=== PATIENT | male | born 1960 | race Caucasian/White ===

== ENCOUNTER 2016-03-04 09:47 | Inpatient (IN) | payer BC, OTHER ==
[~2016-03-04] VITALS: Ht 152.4 cm; Wt 10.0 kg
[~2016-03-04 09:47] MED LIST: ATEN-173 PO; HYDC25 PO; LANS30CA12 PO; OXYC-57 PO
[2016-03-04 10:01] VITALS: Ht 152.4 cm; Wt 10.0 kg
[2016-03-04] MEDS ORDERED: ASPIRIN 81 MG CHEW PO STA (10:04)
[2016-03-04] MEDS ORDERED: NITROGLYCERIN 0.4 MG SL PER TAB CHARGE SL PRN (10:15)
[2016-03-04 10:26] LABS: BASO % 0.4 %; BASO ABS # 0.03 K/uL (0-0.2); COMPLETE YES; HEMATOCRIT 46.3 % (42-52); IG% 0.2 %; LYMPH % 15.8 %; LYMPH ABS # 1.31 K/uL (1.2-3.4); MEAN CORPUSCULAR HEMOGLOBIN 31.4 pg (25-34); MEAN CORPUSCULAR HGB CONC 34.6 g/dl (32-36); MEAN PLATELET VOLUME 10.2 fL (7.4-10.4); MONO % 5.9 %; NEUT % 74.7 %; PLATELET COUNT 238 K/uL (130-400); RED BLOOD COUNT 5.09 M/uL (4.7-6.1); WHITE BLOOD COUNT 8.31 K/uL (4.8-10.8)
--- NOTE | 2016-03-04 10:33 | DIAGNOSTIC IMAGING REPORT ---
SINGLE VIEW CHEST CLINICAL HISTORY: Atypical chest pain. FINDINGS: An AP, portable, upright chest radiograph is obtained. No prior studies are available for comparison at the time of dictation. The examination is degraded by portable technique and patient rotation. The cardiomediastinal silhouette is top normal for projection. There are low lung volumes with mild bibasilar atelectasis. No airspace consolidation, large pleural effusion, or pneumothorax is seen. The bony thorax is grossly intact. IMPRESSION: Bibasilar atelectasis with no acute cardiopulmonary abnormality. Electronically signed by: Brendan Blair M.D. 03/04/2016 10:31 AM Dictated Date/Time: 03/04/2016 10:30 AM
[2016-03-04 10:46] LABS: BUN/CREATININE RATIO 17.8 (10-20); CALCIUM 9.1 mg/dl (8.5-10.1); CREATININE 0.89 mg/dl (0.60-1.40); POTASSIUM 4.1 mmol/L (3.5-5.1)
[2016-03-04 10:51] LABS: CKMB/CK RATIO 0.7 (0-3.0)
--- NOTE | 2016-03-04 12:14 | DIAGNOSTIC IMAGING REPORT ---
CT ANGIOGRAM OF THE CHEST CLINICAL HISTORY: Atypical chest pain. COMPARISON STUDY: Chest x-ray dated 03/04/2016. TECHNIQUE: Following the IV administration of 91 cc of Optiray 320, CT angiogram of the chest was performed from the upper abdomen to the thoracic inlet utilizing the pulmonary embolus protocol. Images are reviewed in the axial, sagittal, and coronal planes. 3-D MIPS images are created and assessed. IV contrast was administered without complication. CT DOSE: 458.62 mGy.cm FINDINGS: Thyroid: Imaged portions of the thyroid gland are normal in size and attenuation. Thoracic aorta: There is minimal ectasia of the ascending thoracic aorta which measures up to 4.1 cm in diameter. The remainder of the thoracic aorta is normal in caliber. The arch demonstrates standard 3-vessel anatomy. The thoracic aorta was not well opacified. Pulmonary vasculature: The pulmonary trunk is normal in caliber. There are no filling defects identified in main, lobar, or segmental pulmonary branches to suggest pulmonary embolus. Heart: The heart is mildly enlarged and without pericardial effusion. Lungs and pleural spaces: Evaluation of the lung parenchyma is mildly degraded by respiratory motion artifact. There is no airspace consolidation or pleural effusion. Dependent atelectasis is observed. There are scattered calcified granulomas. A 3 mm left lower lobe nodule is seen on image #175. The trachea and central airways are clear. Mediastinum: There is no mediastinal lymphadenopathy. Mary Ann: Clear. Axillae: There is no axillary lymphadenopathy. Upper abdomen: A 13 mm cyst is seen in the left lobe of the liver. There is a small hiatal hernia. Skeletal structures: No lytic or blastic bony lesions are seen. IMPRESSION: 1. There is no evidence of pulmonary embolus in the main, lobar, or segmental pulmonary arteries. 2. There is no airspace consolidation or pleural effusion. 3. Cardiomegaly. 4. There is mild ectasia of the ascending thoracic aorta which measures up to 4.1 cm in diameter. The remainder of the thoracic aorta is normal in caliber. 5. There is a 3 mm left lower lobe pulmonary nodule. This is indeterminant but low suspicion and can be followed if clinically warranted. Please refer to below summary of Fleischner criteria recommendations for follow-up of incidental CT nodules (Gisell Akins, Guidelines for management of small pulmonary nodules detected on CT scans: A statement from the Fleischner Society, Radiology 237: [phone].) Low Risk Patient: Minimal or no smoking or other known risk factors for malignancy <=4 mm: No follow-up needed. >4-6 mm: Initial follow-up CT at 12 months; if unchanged, no further follow-up. >6-8 mm: Initial follow-up CT at 6-12 months then at 18-24 months if no change. >8 mm: Follow-up CT at \R\3, 9, 24 months, or PET and/or biopsy. High Risk Patient: History of smoking or other known risk factors <=4 mm: Follow-up at 12 months; if unchanged, no further follow-up. >4-6 mm: Initial follow-up CT at 6-12 months then at 18-24 months if no change. >6-8 mm: Initial follow-up CT at 3-6 months then at 9-12 and 24 months if no change. >8 mm: Same as low risk patient. Note: Nodule size measured as average of length and width. Ground glass or partly solid nodules may require longer follow-up to exclude indolent adenocarcinoma. Electronically signed by: Brendan Blair M.D. 03/04/2016 12:12 PM Dictated Date/Time: 03/04/2016 12:02 PM
--- NOTE | 2016-03-04 13:09 | EMERGENCY ROOM VISIT NOTE ---
ED Visit Note First contact with patient: 09:56 I saw this patient in conjunction with Harvinder Ford PA-C. I agree with his decision-making and treatment plan.
--- NOTE | 2016-03-04 15:55 | Cardiology Consultation ---
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 The patient's PCP is Dr Ahsan Levy. The patient states he was getting ready for work this am. He got out of the shower and had a stabbing discomfort at the lower rib margin of his left chest. He rested and it subsided. He then went to visit a client and had recurrence of the chest discomfort. Then he drove to [place] and had recurrence causing him to present to the ED. EKG x 2 in the emergency department revealed Sinus bradycardia at 52 and 47 bpm without an significant ST changes. His chest discomfort resolved after a dose of SL nitroglycerin. Two troponin levels were negative 3 hours apart. I was contacted by Mr Ford who requested an exercise stress echocardiogram on the patient. The patient's resting echocardiogram revealed normal wall motion. He was free of symptoms at that point. At 3 pm he was placed on the treadmill. At a low level of exercise he complained of reproduction of his presenting symptoms. His symptoms progressed with continued exercise and therefore the test was terminated. The EKG and echocardiogram revealed no definite evidence of ischemia, but the sensitivity is decreased given the low heart rate response and low work load completing 5 minutes and 18 seconds on a standard Emiliano protocol with peak HR of 100 bpm, equivalent to < 70% of the age predicted maximum HR. After the stress images were obtained the patient received a dose of 0.4 mcg of SL nitroglycerin administered by the undersigned with resolution of his symptoms. The patient was transported back to the ED under my personal supervision for ongoing care. History Past Medical History: 1. HTN 2. Dyslipidemia 3. 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 No heart disease. Siblings: no heart disease Review Of Systems General: The patient denies weight change, night sweats, fever, chills. Head: The patient denies headache and prior head trauma. Cardiovascular: The patient denies chest pain or chest discomfort, dyspnea on exertion, palpitations, PND, orthopnea, edema, spontaneous shortness of breath, syncope and near syncope. Pulmonary: The patient denies cough, wheeze, pleurisy, hemoptysis, sputum, and excessive snoring. Gastrointestinal: The patient denies nausea, vomiting, diarrhea, constipation, bloating, hematemesis, hematochezia, and abdominal pain. Skin: The patient denies diaphoresis and rash. Musculoskeletal: The patient denies joint pain, joint swelling, myalgia, back pain, neck pain and prior injuries. Neurological: The patient denies prior stroke and seizures Allergies Coded Allergies: No Known Allergies (Unverified , 03/04/16) Medications Reported Home Medications Medications Dose Route/Sig Max Daily Dose Days Date Category Hctz * (Hydrochlorothiazide) 12.5 Mg Cap 12.5 Mg PO QD@08 04/03/07 Rx Prevacid (Lansoprazole) 30 Mg Capcr 30 Mg PO DAILY 04/03/07 Reported Tenormin (Atenolol) 25 Mg Tab 50 Mg PO DAILY 04/03/07 Reported Physical Exam Vital Signs (Last 8hrs): Last 8 Hrs Date Time Temp Pulse Resp B/P Pulse Ox O2 Delivery O2 Flow Rate FiO2 03/04/16 15:29 53 18 142/95 53 Room Air 03/04/16 15:07 63 15 111/67 100 03/04/16 13:30 61 14 107/62 99 Room Air 03/04/16 13:12 46 03/04/16 11:26 47 16 141/87 98 Room Air 03/04/16 10:45 48 18 154/88 97 Room Air 03/04/16 10:24 59 16 141/93 96 Room Air 03/04/16 10:15 98 Room Air 03/04/16 10:05 51 03/04/16 10:01 36.7 51 18 165/115 99 Room Air 03/04/16 10:01 99 Room Air General Appearance: Alert and Oriented x3. NAD. Head: Normocephalic Atraumatic. Eyes: PERRLA, EOMI, conjunctiva and sclera clear Neck: Supple. No carotid bruits noted. No JVD. No HJD. Respiratory: Breath sounds clear to auscultation bilaterally. No w/r/r. Cardiovascular: Reg rate and rhythm. S1 and S2 noted. No murmurs, rubs, gallops. PMI non displace. Abdomen: Normal bowel sounds, soft nontender. no abdominal bruits. Extremities: No edema, no clubbing or cyanosis. distal pulses 2/4 bilaterally. Neuro: No focal deficits. Psychiatric: Normal affect. Data Last Resulted 03/04/16 10:10 Red Blood Count 5.09, Mean Corpuscular Volume 91.0, Mean Corpuscular Hemoglobin 31.4, Mean Corpuscular Hemoglobin Concent 34.6, Mean Platelet Volume 10.2, Neutrophils (%) (Auto) 74.7, Lymphocytes (%) (Auto) 15.8, Monocytes (%) (Auto) 5.9, Eosinophils (%) (Auto) 3.0, Basophils (%) (Auto) 0.4, Neutrophils # (Auto) 6.21, Lymphocytes # (Auto) 1.31, Monocytes # (Auto) 0.49, Eosinophils # (Auto) 0.25, Basophils # (Auto) 0.03 Last Resulted 03/04/16 10:10 Past 24 Hours Test 03/04/16 10:10 Range/Units Creatine Kinase MB 0.8 0.5-3.6 ng/ml Creatine Kinase MB Ratio 0.7 0-3.0 Total Creatine Kinase 108 39-308 U/L POC troponin negative x [address] of chest 03/04/15: 1. There is no evidence of pulmonary embolus in the main, lobar, or segmental pulmonary arteries. 2. There is no airspace consolidation or pleural effusion. 3. Cardiomegaly. 4. There is mild ectasia of the ascending thoracic aorta which measures up to 4.1 cm in diameter. The remainder of the thoracic aorta is normal in caliber. 5. There is a 3 mm left lower lobe pulmonary nodule. This is indeterminant but low suspicion and can be followed if clinically warranted. EKG: as per HPI Telemetry reviewed: Sinus bradycardia Assessment & Plan Impression: 55 year old male 1. Chest discomfort, reproduced on treadmill and suggestive of unstable angina, non ST segment elevation acute coronary syndrome 2. HTN, BP elevated with exercise 3. Sinus bradycardia at rest, on atenolol 50 mg on a chronic basis, heart rate response to exercise is attenuated due to the atenolol 4. Dyslipidemia, last LDL01/22/16 as outpt was 182, not on statin therapy ( myalgias with atorvastatin) 5. CT chest , negative for PE, positive for indeterminate incidental pulmonary nodule , and mild aortic root dilatation Plan: Admit to telemetry, s/o [facility] hospitalist with [facility] cardiology consultation. Start UF heparin infusion , weight based protocol, no loading bolus. ASA 81 mg daily. Start Crestor 10 mg daily. Continue home dose of atenolol for now, although dose may need to be cut back to 25 mg due to bradycardia. Likely for cardiac catheterization on Monday. Dr Bloom to see patient 03/05/16. Justus Baron DO
[2016-03-04] MEDS ORDERED: HEPARIN 25000 UNIT/500 ML D5W ONE (15:57)
[2016-03-04] MEDS ORDERED: ONDANSETRON INJ 2 MG/ML 2 ML VIAL IV PRN (16:00)
[2016-03-04] MEDS ORDERED: ASPEC81 PO (16:00)
--- NOTE | 2016-03-04 16:15 | EXERCISE STRESS ECHO ---
*NOTICE TO RECEIVING REPUBLICAN AGENCY This information is strictly Confidential and protected under [place] law. [place] law prohibits you from making any further disclosure of this information unless further disclosure is expressly permitted by the written consent of the person to whom it pertains or is authorized by law. A general authorization for the release of medical or other information is not sufficient for this purpose. Hospital accepts no responsibility if the information is made available to any other person, INCLUDING THE PATIENT. Interpretation Summary * Name: ANIL ESTEBAN Study Date: 03/04/2016 01:32 PM BP: 155/94 mmHg * Patient Location: ED HR: 46 * : 1960 (M/d/yyyy) Gender: Male Height: 70 in * Age: 55 yrs Ethnicity: [place] Weight: 199 lb * Ordering Physician: Arcadoi Ford * Referring Physician: Self, Referred * Performed By: Noam Kendall RCS * * Reason For Study: CHEST PAIN * BSA: 2.1 m2 * -- Conclusions -- * STRESS STUDY: * The patient's presenting symptoms of left sided chest discomfort were reproduced at a low level of exercise and progressed / worsened with continue exercise and therefore the exercise test was terminated. * There was no EKG or echocardgraphic evidence of resting or inducible ischemia, however the test was limited by the low heart rate respone/ low work load. * The heart rate response was attenuated by chronic beta do therapy. * Despite normal wall motion, the clinical presentation suggests underlying coronary heart disease. * RESTING STUDY; * There is mild mitral regurgitation. * The aortic root diameter was at the upper limit of normal at 3.8 cm. * The proximal ascending thoracic aorta was not visualized adequately to permit measurement. Procedure Details * ECHOEX, CPT #[id number] * ECHO COLOR FLOW, CPT #[id number] * ECHO DOPPLER, CPT #[id number] Left Ventricle * The left ventricle is normal in size. * There is normal left ventricular wall thickness. * Left ventricular systolic function is normal. * Ejection Fraction = 60-65%. * Resting wall motion: Normal. Stress wall motion: Appropriate increase in Left ventricular systolic function and decrease in cavity size. No stress induced segmental wall motion abnormalities. Right Ventricle * The right ventricle is normal in size and function. Atria * The left atrial size is normal. * Right atrial size is normal. * No ASD detected; PFO is not assessed. Mitral Valve * The mitral valve is normal. * There is no mitral valve stenosis. * There is mild mitral regurgitation. Tricuspid Valve * The tricuspid valve is normal. * There is no tricuspid stenosis. * Significant tricuspid regurgitation is absent. Aortic Valve * The aortic valve is trileaflet. * No hemodynamically significant valvular aortic stenosis. * No aortic regurgitation is present. Pulmonic Valve * The pulmonic valve is not well visualized. Great Vessels * The aortic root diameter was at the upper limit of normal at 3.8 cm. The proximal ascending thoracic aorta was not visualized adequately to permit measurement. Pericardium * There is no pericardial effusion. Stress Parameters * The baseline EKG reveals sinus bradycardia at [address] segments. * The stress EKG was negative for ischemia. The heart rate response was attenuated due to underlying beta do therapy. * The stress portion of this study was personally supervised by the undersigned interpreting physician. * Rest heart rate was '46' BPM. * Rest blood pressure was '155/94' * Maximum heart rate achieved was 120 bpm. * Maximum heart rate was 73 % of maximum age-predicted heart rate. * Maximum blood pressure was '193/102' * Total exercise time was '5:18' * Maximum exercise MET level achieved was '7' METS * Maximum treadmill speed was '2.5' miles per hour. * Maximum treadmill elevation was '12'% grade. * Exercise was terminated due to 'PHYSCIANS DESCRETION' Left Ventricular Diastolic Function * Grade I diastolic dysfunction, (abnormal relaxation pattern). MMode 2D Measurements and Calculations IVSd 1.0 cm IVSs 1.3 cm LVIDd 5.4 cm LVIDs 3.5 cm LVPWd 1.0 cm LVPWs 1.4 cm IVS/LVPW 1.0 FS 34.7 % EDV(Teich) 139.9 ml ESV(Teich) 51.3 ml EF(Teich) 63.3 % EDV(cubed) 155.5 ml ESV(cubed) 43.4 ml EF(cubed) 72.1 % % IVS thick 28.7 % % LVPW thick 40.2 % LV mass(C)d 213.8 grams LV mass(C)dI 102.7 grams/m\S\2 LV mass(C)s 171.1 grams LV mass(C)sI 82.1 grams/m\S\2 CO(Teich) 5.0 l/min CI(Teich) 2.4 l/min/m\S\2 SV(Teich) 88.6 ml SI(Teich) 42.5 ml/m\S\2 CO(cubed) 6.3 l/min CI(cubed) 3.0 l/min/m\S\2 SV(cubed) 112.1 ml SI(cubed) 53.8 ml/m\S\2 Ao root diam 3.8 cm Ao root area 11.4 cm\S\2 ACS 1.8 cm LA dimension 3.9 cm LA/Ao 1.0 LVAd ap4 37.8 cm\S\2 LVLd ap4 9.2 cm EDV(MOD-sp4) 127.0 ml LVAs ap4 20.4 cm\S\2 LVLs ap4 7.3 cm ESV(MOD-sp4) 49.0 ml EF(MOD-sp4) 61.4 % LVAd ap2 36.7 cm\S\2 LVLd ap2 9.4 cm EDV(MOD-sp2) 118.0 ml LVAs ap2 20.2 cm\S\2 LVLs ap2 7.6 cm ESV(MOD-sp2) 46.0 ml EF(MOD-sp2) 61.0 % CO(MOD-sp4) 4.4 l/min CI(MOD-sp4) 2.1 l/min/m\S\2 SV(MOD-sp4) 78.0 ml SI(MOD-sp4) 37.4 ml/m\S\2 CO(MOD-sp2) 4.0 l/min CI(MOD-sp2) 1.9 l/min/m\S\2 SV(MOD-sp2) 72.0 ml SI(MOD-sp2) 34.6 ml/m\S\2 Doppler Measurements and Calculations MV E max rodrigue 60.5 cm/sec MV A max rodrigue 33.9 cm/sec MV E/A 1.8 MV P1/2t max rodrigue 78.7 cm/sec MV P1/2t 79.4 msec MVA(P1/2t) 2.8 cm\S\2 MV dec slope 290.4 cm/sec\S\2 MV dec time 0.24 sec Ao V2 max 109.5 cm/sec Ao max PG 4.8 mmHg Ao max PG (full) 3.0 mmHg LV V1 max PG 1.8 mmHg LV V1 max 66.2 cm/sec PA V2 max 70.2 cm/sec PA max PG 2.0 mmHg PI max rodrigue 135.7 cm/sec PI max PG 7.4 mmHg PI dec slope 81.1 cm/sec\S\2 PI P1/2t 490.3 msec
--- NOTE | 2016-03-04 16:28 | History and Physical ---
History & Physical Date & Time of Service: Mar 04, 2016 at 16:08 Chief Complaint: Chest Pain Primary Care Physician: Ahsan Levy M.D. History of Present Illness 55 year old male who presents to the ER with chest pain. Patient reports that this morning while drinking coffee he developed left lower chest pain. Patient describes the pain as a stabbing and rated it #6/10 at its worst. He reports the pain lasted a few minutes and then resolved on its own. He then was driving to work then the pain returned. He went to the [facility] and was referred to the ER for further evaluation. Upon arrival to the ER, patient was given full dose ASA and SL nitro and had resolution of his symptoms. Patient reports he had associated shortness of breath, nausea, diaphoresis, and lightheadedness. He has noticed he has been more fatigued the past few weeks. He denies exertional shortness of breath. No abdominal pain, vomiting, or diarrhea. No fever or chills. He denies any urinary symptoms. In the ER, troponins were trended x 2 and were negative. EKG did not show any acute ST changes. Patient was referred for exercise stress test. During the stress test, patient had reproduction of his symptoms. EKG did not show any signs of ischemia. He was given SL nitro with resolution of his pain. Past Medical/Surgical History Medical Problems: (1) Dyslipidemia Status: Chronic (2) GERD (gastroesophageal reflux disease) Status: Chronic (3) HTN (hypertension) Status: Chronic Surgical Problems: (1) No history of previous surgery Status: Chronic Family History negative for premature CAD, DM, or CVA Social History Smoking Status: Never Smoker Alcohol Use: occasionally Marital Status: Immunizations History of Tetanus Vaccine?: Yes Tetanus Immunization Date: Nov 21, 2008 Allergies Coded Allergies: No Known Allergies (Unverified , 03/04/16) Home Medications Scheduled Aspirin (Aspirin EC Low Dose), 81 MG PO DAILY Atenolol (Tenormin), 50 MG PO DAILY Hydrochlorothiazide (Hctz *), 12.5 MG PO QD@08 Lansoprazole (Prevacid), 30 MG PO DAILY Review of Systems 10 point review of systems was completed with the pertinent positives and negatives noted per the HPI Physical Exam Vital Signs Date Time Temp Pulse Resp B/P Pulse Ox O2 Delivery O2 Flow Rate FiO2 03/04/16 15:29 53 18 142/95 53 Room Air 03/04/16 15:07 63 15 111/67 100 03/04/16 13:30 61 14 107/62 99 Room Air 03/04/16 13:12 46 03/04/16 11:26 47 16 141/87 98 Room Air 03/04/16 10:45 48 18 154/88 97 Room Air 03/04/16 10:24 59 16 141/93 96 Room Air 03/04/16 10:15 98 Room Air 03/04/16 10:05 51 03/04/16 10:01 36.7 51 18 165/115 99 Room Air 03/04/16 10:01 99 Room Air General Appearance: no apparent distress Head: normocephalic Eyes: normal inspection ENT: hearing grossly normal Neck: supple, no JVD Respiratory/Chest: chest non-tender, lungs clear, normal breath sounds, no respiratory distress Cardiovascular: regular rate, rhythm, no edema, normal peripheral pulses Abdomen/GI: normal bowel sounds, non tender, soft Extremities/Musculoskelatal: normal inspection, no calf tenderness Neurologic/Psych: no motor/sensory deficits, alert, normal mood/affect, oriented x 3 Skin: normal color, warm/dry Diagnostics Laboratory Results Results Past 24 Hours Test 03/04/16 10:10 03/04/16 10:11 03/04/16 12:54 Range/Units White Blood Count 8.31 4.8-10.8 K/uL Red Blood Count 5.09 4.7-6.1 M/uL Hemoglobin 16.0 14.0-18.0 g/dL Hematocrit 46.3 42-52 % Mean Corpuscular Volume 91.0 80-100 fL Mean Corpuscular Hemoglobin 31.4 25-34 pg Mean Corpuscular Hemoglobin Concent 34.6 32-36 g/dl Platelet Count 238 130-400 K/uL Mean Platelet Volume 10.2 7.4-10.4 fL Neutrophils (%) (Auto) 74.7 % Lymphocytes (%) (Auto) 15.8 % Monocytes (%) (Auto) 5.9 % Eosinophils (%) (Auto) 3.0 % Basophils (%) (Auto) 0.4 % Neutrophils # (Auto) 6.21 1.4-6.5 K/uL Lymphocytes # (Auto) 1.31 1.2-3.4 K/uL Monocytes # (Auto) 0.49 0.11-0.59 K/uL Eosinophils # (Auto) 0.25 0-0.5 K/uL Basophils # (Auto) 0.03 0-0.2 K/uL RDW Standard Deviation 43.7 36.4-46.3 fL RDW Coefficient of Variation 13.1 11.5-14.5 % Immature Granulocyte % (Auto) 0.2 % Immature Granulocyte # (Auto) 0.02 0.00-0.02 K/uL Sodium Level 139 136-145 mmol/L Potassium Level 4.1 3.5-5.1 mmol/L Chloride Level 103 98-107 mmol/L Carbon Dioxide Level 31 21-32 mmol/L Anion Gap 5.0 3-11 mmol/L Blood Urea Nitrogen 16 7-18 mg/dl Creatinine 0.89 0.60-1.40 mg/dl Est Creatinine Clear Calc Drug Dose 103.6 ml/min Estimated GFR () 110.0 Estimated GFR (Non- 94.9 BUN/Creatinine Ratio 17.8 10-20 Random Glucose 101 70-99 mg/dl Calcium Level 9.1 8.5-10.1 mg/dl Total Bilirubin 0.6 0.2-1 mg/dl Direct Bilirubin 0.1 0-0.2 mg/dl Aspartate Amino Transf (AST/SGOT) 11 15-37 U/L Alanine Aminotransferase (ALT/SGPT) 27 12-78 U/L Alkaline Phosphatase 79 45-117 U/L Total Creatine Kinase 108 39-308 U/L Creatine Kinase MB 0.8 0.5-3.6 ng/ml Creatine Kinase MB Ratio 0.7 0-3.0 Total Protein 7.3 6.4-8.2 gm/dl Albumin 3.9 3.4-5.0 gm/dl Lipase 174 73-393 U/L Bedside D-Dimer > 450 0-450 ng/mlFEU Bedside Troponin I 0.000 0.000 0-0.045 ng/ml Diagnostic Radiology CXR IMPRESSION: Bibasilar atelectasis with no acute cardiopulmonary abnormality. CTA CHEST IMPRESSION: 1. There is no evidence of pulmonary embolus in the main, lobar, or segmental pulmonary arteries. 2. There is no airspace consolidation or pleural effusion. 3. Cardiomegaly. 4. There is mild ectasia of the ascending thoracic aorta which measures up to 4.1 cm in diameter. The remainder of the thoracic aorta is normal in caliber. 5. There is a 3 mm left lower lobe pulmonary nodule. This is indeterminant but low suspicion and can be followed if clinically warranted. Impression Assessment and Plan UNSTABLE ANGINA - admit to tele - presenting with chest pain; initial troponin negative, EKG without acute ST changes; patient was referred for stress test from the ER where he has reproduction of his symptoms without EKG changes - risk factors: HTN, dyslipidemia (self stopped atorvastatin due to myalgias) - case discussed with Dr. Baron - will place on heparin gtt and plan for cardiac cath on Monday - continue ASA and beta do; beta do dose may need to be reduced due to bradycardia - resume statin - Crestor 10mg HTN - BP controlled, continue atenolol and HCTZ GERD - continue PPI DVT PROPHYLAXIS - on heparin gtt DISPO - In my clinical judgment this beneficiary meets acute admission criteria, established by [facility], that includes being hospitalized through two midnights. Attending Note: Patient is 55 Yr old male with PMH of HTN, GERD, HLP and intolerance to statins presents with history of left sided non radiating,"needle like" chest pain which is constant, 6/10 intensity started at rest which lasted for few minutes and reoccurred. Chest pain is associated with nausea, SOB, dizziness and diaphoresis. EKG and troponin were negative for any ischemia. Stress test was done and patient had recurrence of symptoms which resolved with NTG. On recommendations from cardiology patient is admitted for further evaluation and management. Physical Exam: Vitals signs as noted above General Appearance:Moderately built and nourished, no apparent distress Head: normocephalic, Atraumatic Eyes: normal inspection, EOMI, PERRLA, Anicteric Neck: supple, no JVD, Trachea midline, No JVD Respiratory/Chest: Normal Vesicular breath sounds, CTA, No accessory muscle use , non tender Cardiovascular: S1, S2, NSR, bradycardia, No murmur Abdomen/GI:Soft, Non tender, Bowel sounds present, No guarding/rigidity/ organomegaly Extremities/Musculoskelatal:normal inspection, no calf tenderness, cyanosis, clubbing, edema Neurologic/Psych:AAOX3, grossly no focal neurological deficits Skin: normal color, warm Assessment and Plan: Unstable angina: Admit in Telemetry Start on IV heparin EKG and troponin negative for signs of ischemia Aspirin, Statins, BB BB dose may need to be adjusted secondary to bradycardia Cardiology consulted Planned for cardiac cath on Monday Hypertension: Continue home medications Stable Agree with assessment and plan of Tamiko Clancy UNDERWR[employer]IT[employer] DIRECT[employer] as above VTE Prophylaxis VTE Risk Assessment Done? Y/N: Yes Risk Level: Low
[2016-03-04 16:31] LABS: PARTIAL THROMBOPLASTIN RATIO 1.3
[2016-03-04 17:15] VITALS: BP 156/93; PULSE 57; TEMP 37; O2SAT 97; BMI 28.6
[2016-03-04 20:00] VITALS: BP 153/99; PULSE 68; TEMP 36.8; O2SAT 98
[2016-03-04] MEDS: ROSUVASTATIN CALCIUM 10 MG TAB PO SCH (20:44)
[2016-03-04 22:54] LABS: PARTIAL THROMBOPLASTIN RATIO 2.1
[2016-03-05] VITALS (8 sets, daily range): BP systolic 116–143; BP diastolic 69–89; PULSE 47–68; TEMP 36.5–36.9; O2SAT 92–97
[2016-03-05 02:26] LABS: HEMATOCRIT 44.1 % (42-52); MEAN CELL VOLUME 90.4 fL (80-100); MEAN CORPUSCULAR HEMOGLOBIN 32.2 pg (25-34); MEAN CORPUSCULAR HGB CONC 35.6 g/dl (32-36); MEAN PLATELET VOLUME 10.4 fL (7.4-10.4); PLATELET COUNT 218 K/uL (130-400); RED BLOOD COUNT 4.88 M/uL (4.7-6.1); WHITE BLOOD COUNT 7.84 K/uL (4.8-10.8)
[2016-03-05 03:38] LABS: BLOOD UREA NITROGEN 16 mg/dl (7-18); BUN/CREATININE RATIO 19.7 (10-20); CARBON DIOXIDE 29 mmol/L (21-32); CHLORIDE 103 mmol/L (98-107); CREATININE 0.82 mg/dl (0.60-1.40); GLUCOSE 98 mg/dl (70-99); POTASSIUM 3.6 mmol/L (3.5-5.1); SODIUM 141 mmol/L (136-145)
[2016-03-05 03:55] LABS: PARTIAL THROMBOPLASTIN RATIO 2.5
[2016-03-05] MEDS: PANTOprazole SOD 40 MG TAB PO SCH (07:42)
[2016-03-05] MEDS: ASPIRIN 81 MG ECTAB PO SCH (07:42)
[2016-03-05] MEDS: ACETAMINOPHEN 325 MG TAB PO PRN ×2 (07:42→20:46)
[2016-03-05] MEDS: HYDROCHLOROTHIAZIDE 25 MG TAB PO SCH (07:44)
[2016-03-05] MEDS ORDERED: LISINOPRIL 5 MG TAB PO ONE (11:30)
--- NOTE | 2016-03-05 11:31 | CARDIOLOGY PROGRESS NOTE ---
DATE: 03/05/2016 DATE: 03/05/2016. The patient seen and examined. Chart, medications, telemetry reviewed. SUBJECTIVE: The patient has had no further chest pain or discomfort overnight, though he has been sedentary. Notes no dizziness or lightheadedness. Notes no syncope or near syncope. He is frustrated regarding in hospital stay. Notes no bleeding difficulties. Notes no headache or visual changes. Blood pressures have been controlled. OBJECTIVE: VITAL SIGNS: Heart rate is 52. Blood pressure is 143/89. HEAD, EYES, EARS, NOSE, AND THROAT EXAMINATION: Normocephalic, atraumatic. Nares without discharge. Throat was clear. NECK: Supple without thyromegaly, lymphadenopathy, JVD or bruit. LUNGS: Clear to auscultation. CARDIOVASCULAR EXAMINATION: Regular, normal S1, S2. There is no audible murmur, gallop or rub. ABDOMEN: Soft, nontender. EXTREMITIES: Without cyanosis or clubbing. There is no peripheral edema. There are intact distal pulses. DATA: EKG this morning reveals sinus rhythm, prominent U wave anterior precordial leads, minimal voltage criteria for left ventricular hypertrophy. LABORATORY STUDIES: Sodium is 141, potassium is 3.6, chloride is 103, bicarbonate 29, BUN is 16, creatinine 0.82. Troponins are negative x2. PTT 64.8 on therapeutic therapies. IMPRESSION: A 55-year-old male presented with symptoms of exertional chest discomfort left lateral with reexacerbation of symptoms while on stress echocardiogram. Findings did not show acute ischemia, though symptoms were strongly suggestive of underlying ischemic heart disease. Discussed findings in detail with the patient. He is anxious to be discharged to home, but after discussion is willing to wait for diagnostic cardiac catheterization as previously recommended for Monday. Will continue anticoagulation in the interim. Will add low dose beta do for hypertension control given persistent elevation since admission. Continue current dosing of atenolol and aspirin. Anticipate diagnostic cardiac catheterization on Monday.
--- NOTE | 2016-03-05 17:02 | Progress Note ---
Medicine Progress Note Date & Time of Visit: Mar 05, 2016 at 16:46. Subjective Pt was seen and examined Pt said that he feels fine he said that he wants to go home today he said that he has not had any chest pain, SOB, palpitation he said that he feels great and ready to be discharge He is upset that he has to stay for Monday in the hospital for the cardiac cath Objective Last 8 Hrs Date Time Temp Pulse Resp B/P Pulse Ox O2 Delivery O2 Flow Rate FiO2 03/05/16 16:00 Room Air 03/05/16 15:28 36.9 63 22 116/72 92 Room Air 03/05/16 12:00 Room Air 03/05/16 10:49 36.9 47 20 137/89 95 Room Air Physical Exam: General- no acute distress, feel annoyed Head- atraumatic Eyes- PERRL, EOMI ENT- oropharynx clear Neck- supple, no JVD Lungs- clear to auscultation and percussion Heart- regular rhythm; no murmur Abdomen- normal bowel sounds, soft Extremities- no calf tenderness Neuro- alert, oriented x 3; PERRL, EOMI Skin- warm & dry Laboratory Results: Last 24 Hours Test 03/04/16 18:00 03/04/16 18:30 03/04/16 22:10 03/05/16 00:00 Creatine Kinase MB Ratio Creatine Kinase MB 0.8 ng/ml Troponin I < 0.015 ng/ml Activated Partial Thromboplast Time 55.1 SECONDS Partial Thromboplastin Ratio 2.1 Test 03/05/16 01:51 White Blood Count 7.84 K/uL Red Blood Count 4.88 M/uL Hemoglobin 15.7 g/dL Hematocrit 44.1 % Mean Corpuscular Volume 90.4 fL Mean Corpuscular Hemoglobin 32.2 pg Mean Corpuscular Hemoglobin Concent 35.6 g/dl RDW Standard Deviation 43.6 fL RDW Coefficient of Variation 13.2 % Platelet Count 218 K/uL Mean Platelet Volume 10.4 fL Activated Partial Thromboplast Time 64.8 SECONDS Partial Thromboplastin Ratio 2.5 Sodium Level 141 mmol/L Potassium Level 3.6 mmol/L Chloride Level 103 mmol/L Carbon Dioxide Level 29 mmol/L Anion Gap 9.0 mmol/L Blood Urea Nitrogen 16 mg/dl Creatinine 0.82 mg/dl Est Creatinine Clear Calc Drug Dose 112.2 ml/min Estimated GFR () 113.8 Estimated GFR (Non- 98.2 BUN/Creatinine Ratio 19.7 Random Glucose 98 mg/dl Calcium Level 9.0 mg/dl Creatine Kinase MB 0.8 ng/ml Troponin I < 0.015 ng/ml Thyroid Stimulating Hormone (TSH) 3.030 uIu/ml Assessment & Plan Chest Pain -Developed chest discomfort during treadmill stress test -Possible related to unstable angina, non ST segment elevation acute coronary syndrome - Troponin are normal, No ST changes on EKG - Asymptomatic at this time - Continue heparin drip, asa, beta do and statin - Plan for cardiac cath on Monday morning -Case discussed with Dr. Bloom HTN - continue atenolol and HCTZ - Lisinopril 5 mg was added - continue monitor BP GERD - continue PPI DVT PROPHYLAXIS - on heparin drip CODE STATUS FULL CODE Consultants: Cardiology Current Inpatient Medications: Current Inpatient Medications Medications (Trade) Dose Ordered Sig/Fabby Route Start Time Stop Time Status Last Admin Dose Admin Acetaminophen (Tylenol Tab) 650 mg Q4H PRN PO 03/04/16 16:00 04/03/16 15:59 03/05/16 07:42 650 MG Ondansetron HCl (Zofran Inj) 4 mg Q6H PRN IV 03/04/16 16:00 04/03/16 15:59 Rosuvastatin Calcium (Crestor Tab) 10 mg HS PO 03/04/16 21:00 04/03/16 20:59 03/04/16 20:44 10 MG Aspirin (Ecotrin Tab) 81 mg DAILY PO 03/05/16 09:00 04/04/16 08:59 03/05/16 07:42 81 MG Atenolol (Tenormin Tab) 50 mg DAILY PO 03/05/16 09:00 04/04/16 08:59 03/05/16 07:43 50 MG Hydrochlorothiazide (Hydrochlorothiazide Tab) 12.5 mg QD@08 PO 03/05/16 08:00 04/04/16 07:59 03/05/16 07:44 12.5 MG Pantoprazole Sodium 40 mg 40 mg DAILY PO 03/05/16 09:00 04/04/16 08:59 03/05/16 07:42 40 MG Heparin Sodium/ Dextrose (Heparin 25,000 Unit/500ml D5W) 500 ml @ 29 mls/hr [id number] PRN IV 03/04/16 22:15 04/03/16 22:14 Lisinopril 5 mg 5 mg QAM PO 03/06/16 09:00 04/05/16 08:59 Sodium Chloride (Nss 1000ml) 1,000 ml @ 45 mls/hr [id number] IV 03/07/16 00:00 03/07/16 22:13
[2016-03-05] MEDS: ROSUVASTATIN CALCIUM 10 MG TAB PO SCH (20:42)
[2016-03-06] MEDS: HEPARIN 25,000 UNIT/500ML D5W 500 ML IV PRN ×3 (03:32→22:13)
[2016-03-06 04:00] VITALS: BP 109/63; PULSE 64; TEMP 36.7; O2SAT 94
[2016-03-06 07:08] LABS: HEMATOCRIT 45.4 % (42-52); MEAN CELL VOLUME 90.4 fL (80-100); MEAN CORPUSCULAR HEMOGLOBIN 31.9 pg (25-34); MEAN CORPUSCULAR HGB CONC 35.2 g/dl (32-36); MEAN PLATELET VOLUME 10.4 fL (7.4-10.4); PLATELET COUNT 203 K/uL (130-400); RED BLOOD COUNT 5.02 M/uL (4.7-6.1); WHITE BLOOD COUNT 8.18 K/uL (4.8-10.8)
[2016-03-06 07:43] VITALS: BP 119/73; PULSE 62; TEMP 36.7; O2SAT 91
[2016-03-06] MEDS: ASPIRIN 81 MG ECTAB PO SCH (08:09)
[2016-03-06] MEDS: HYDROCHLOROTHIAZIDE 25 MG TAB PO SCH (08:11)
[2016-03-06] MEDS: PANTOprazole SOD 40 MG TAB PO SCH (08:12)
[2016-03-06] MEDS: LISINOPRIL 5 MG TAB PO SCH (08:12)
[2016-03-06] MEDS ORDERED: DC ALL ANTICOAGULANTS SCH (11:00)
--- NOTE | 2016-03-06 11:41 | CARDIOLOGY PROGRESS NOTE ---
DATE: 03/06/2016 The patient seen and examined. Chart, medications, telemetry reviewed. SUBJECTIVE: The patient had no difficulties overnight. Denies any recurrence of chest pain or discomfort. Notes no dizziness or lightheadedness. Notes no bleeding difficulties on anticoagulation. OBJECTIVE: VITAL SIGNS: Heart rate is 62, blood pressure is 119/73. NECK: Thin. There is no jugular venous distention. There are no carotid bruits. LUNGS: Clear to auscultation. CARDIOVASCULAR: Regular with normal S1, S2. There is no murmur, gallop or rub. ABDOMEN: Soft, nontender. EXTREMITIES: Without cyanosis or clubbing. There is no peripheral edema. IMPRESSION: A 55-year-old male with symptoms suggestive of crescendo angina pectoris with abnormal stress testing, now clinically stable. No signs or symptoms of recurrent symptoms or complaints, though he is on appropriate medical therapies and anticoagulation. PLAN: Will be to refer for diagnostic cardiac catheterization, it is already arranged for a.m. Further recommendations pending the results of the study. The procedure and risks explained in detail with the patient. Verbal consent obtained.
[2016-03-06 12:00] VITALS: BP 126/79; PULSE 56; TEMP 36.8; O2SAT 95
[2016-03-06 14:47] LABS: PARTIAL THROMBOPLASTIN RATIO 2.1
[2016-03-06 15:12] VITALS: BP 105/68; PULSE 60; TEMP 36.8; O2SAT 94
--- NOTE | 2016-03-06 17:57 | Progress Note ---
Medicine Progress Note Date & Time of Visit: Mar 06, 2016 at 17:52. Subjective Pt was seen and examined Lying in bed comfortable with no distress Pt said that he feels fine. he denies any chest pain, palpitation, dizziness and SOB Objective Last 8 Hrs Date Time Temp Pulse Resp B/P Pulse Ox O2 Delivery O2 Flow Rate FiO2 03/06/16 16:00 Room Air 03/06/16 15:12 36.8 60 18 105/68 94 Room Air 03/06/16 12:00 36.8 56 20 126/79 95 Room Air 03/06/16 12:00 Room Air Physical Exam: General- no acute distress Head- atraumatic Eyes- PERRL, EOMI ENT- oropharynx clear Neck- supple, no JVD Lungs- clear to auscultation and percussion Heart- regular rhythm; no murmur Abdomen- normal bowel sounds, soft Extremities- no calf tenderness Neuro- alert, oriented x 3; PERRL, EOMI Skin- warm & dry Laboratory Results: Last 24 Hours Test 03/06/16 06:30 03/06/16 14:10 White Blood Count 8.18 K/uL Red Blood Count 5.02 M/uL Hemoglobin 16.0 g/dL Hematocrit 45.4 % Mean Corpuscular Volume 90.4 fL Mean Corpuscular Hemoglobin 31.9 pg Mean Corpuscular Hemoglobin Concent 35.2 g/dl RDW Standard Deviation 43.9 fL RDW Coefficient of Variation 13.2 % Platelet Count 203 K/uL Mean Platelet Volume 10.4 fL Activated Partial Thromboplast Time 76.7 SECONDS 55.1 SECONDS Partial Thromboplastin Ratio 3.0 2.1 Assessment & Plan Chest Pain -Developed chest discomfort during treadmill stress test -Possible related to unstable angina, non ST segment elevation acute coronary syndrome - Troponin are normal, No ST changes on EKG - Asymptomatic at this time - Continue heparin drip, asa, beta do and statin - Plan for cardiac cath tomorrow - NPO after midnight -Case discussed with Dr. Bloom HTN - continue atenolol and HCTZ - Lisinopril 5 mg was added - continue monitor BP - Controlled GERD - continue PPI DVT PROPHYLAXIS - on heparin drip CODE STATUS FULL CODE Consultants: Cardiology Current Inpatient Medications: Current Inpatient Medications Medications (Trade) Dose Ordered Sig/Fabby Route Start Time Stop Time Status Last Admin Dose Admin Acetaminophen (Tylenol Tab) 650 mg Q4H PRN PO 03/04/16 16:00 04/03/16 15:59 03/05/16 20:46 650 MG Ondansetron HCl (Zofran Inj) 4 mg Q6H PRN IV 03/04/16 16:00 04/03/16 15:59 Rosuvastatin Calcium (Crestor Tab) 10 mg HS PO 03/04/16 21:00 04/03/16 20:59 03/05/16 20:42 10 MG Aspirin (Ecotrin Tab) 81 mg DAILY PO 03/05/16 09:00 04/04/16 08:59 03/06/16 08:09 81 MG Atenolol (Tenormin Tab) 50 mg DAILY PO 03/05/16 09:00 04/04/16 08:59 03/06/16 08:09 50 MG Hydrochlorothiazide (Hydrochlorothiazide Tab) 12.5 mg QD@08 PO 03/05/16 08:00 04/04/16 07:59 03/06/16 08:11 12.5 MG Pantoprazole Sodium 40 mg 40 mg DAILY PO 03/05/16 09:00 04/04/16 08:59 03/06/16 08:12 40 MG Heparin Sodium/ Dextrose (Heparin 25,000 Unit/500ml D5W) 500 ml @ 26 mls/hr [id number] PRN IV 03/04/16 22:15 04/03/16 22:14 Future Hold 03/06/16 09:04 26 MLS/HR Lisinopril 5 mg 5 mg QAM PO 03/06/16 09:00 04/05/16 08:59 03/06/16 08:12 5 MG Sodium Chloride 1,000 ml @ 45 mls/hr [id number] IV 03/07/16 00:00 03/07/16 22:13 Sodium Chloride (Nss 1000ml) 1,000 ml @ 45 mls/hr [id number] IV 03/07/16 00:00 03/07/16 22:13 Miscellaneous (Dc All Anticoagulants) 1 ea TODAY@1100 N/A 03/06/16 11:00 03/06/16 23:59
[2016-03-06 19:19] VITALS: BP 120/71; PULSE 63; TEMP 36.8; O2SAT 95
[2016-03-06] MEDS: ROSUVASTATIN CALCIUM 10 MG TAB PO SCH (21:09)
[2016-03-06 23:30] VITALS: BP 110/67; PULSE 104; TEMP 36.5; O2SAT 95
[2016-03-07] VITALS (11 sets, daily range): BP systolic 97–134; BP diastolic 62–94; PULSE 48–76; TEMP 36–36.6; O2SAT 94–98
[2016-03-07 06:28] LABS: PARTIAL THROMBOPLASTIN RATIO 1.3
[2016-03-07] MEDS: PANTOprazole SOD 40 MG TAB PO SCH (07:50)
[2016-03-07] MEDS: LISINOPRIL 5 MG TAB PO SCH (07:51)
[2016-03-07] MEDS: ASPIRIN 81 MG ECTAB PO SCH (07:55)
[2016-03-07] MEDS ORDERED: FENTANYL CITRATE INJ 50 MCG/1 ML 2 ML VIAL ONE (09:06)
[2016-03-07] MEDS ORDERED: NiCARDipine HCL INJ 2.5 MG/ML 10 ML AMP ONE (09:06)
[2016-03-07] MEDS ORDERED: HEPARIN SOD (PORCINE) 1000 UNIT/ML 10 ML VIAL ONE (09:06)
[2016-03-07] MEDS ORDERED: NITROGLYCERIN/D5W 100MCG/ML 20ML SYR ONE (09:07)
[2016-03-07] MEDS ORDERED: MIDAZOLAM HCL 1 MG/ML 2ML VIAL ONE (09:07)
--- NOTE | 2016-03-07 10:11 | [facility] Post Operative Brief Note ---
Preliminary Procedure Note Procedure Date Mar 07, 2016. Pre-Procedure Diagnosis Angina, Positive Stress Test AUC Score 8 Post-Procedure Diagnosis Mild CAD Procedure(s) Performed Coronary Angiography, Left Heart Cath, LV Angiography Ux Manager Dr. Last Bloom Bar Turner(s) Yeison Harley Estimated Blood Loss <15cc Medication(s) Fentanyl (12.5 mcg IV), Heparin (5000 u IV), Nicardipine (250 mcg intraarterial after sheath insertion), Nitroglycerin (200 mcg intraarterial after sheath insertion), Versed (1mg IV), Lidocaine 1% (local infiltration) Preliminary Findings Right dominant coronary anatomy LM very long and large caliber without disease or calcification LAD Large Type II with large paralleling diagonal. Mild luminal irregularities LCX Very large caliber with OM and [address] Mild ectasia and luminal irregularities mid vessel RCA Very large caliber with long PDA and large trifurcating PV branch. Mild luminal irregularities only LV normal wall motion EF 55% Recommendations Medical therapy and/or Counseling Specimens None Fluids (cc crystalloids) 70 Procedural Complication(s) None Disposition PCU
[2016-03-07] MEDS ORDERED: SODIUM CHLORIDE 0.9% 1000ML 1,000 ML IV SCH ×3 (10:12)
[2016-03-07] MEDS ORDERED: SODIUM CHLORIDE 0.9% 1000ML 250 ML IV PRN (10:12)
[2016-03-07] MEDS ORDERED: ACETAMINOPHEN 325 MG TAB PO PRN (10:15)
[2016-03-07] MEDS ORDERED: ATROPINE SULFATE 0.1 MG/ML 5ML SYR IV PRN (10:15)
[2016-03-07] MEDS: HYDROCHLOROTHIAZIDE 25 MG TAB PO SCH (10:20)
--- NOTE | 2016-03-07 10:25 | Cardiac Catheterization ---
Procedure Note Procedure Date Mar 07, 2016. Pre-Procedure Diagnosis Angina, Positive Stress Test AUC Score 8 Post-Procedure Diagnosis Mild CAD Procedure(s) Performed Coronary Angiography, Left Heart Cath, LV Angiography Cable Maintainer Dr. Duenas Superintendent House(s) Yeison Harley Estimated Blood Loss <15cc Medication(s) Fentanyl (12.5mcg IV), Heparin (5000 u IV), Nicardipine (250 mcg intraarterial after radial sheath insertion), Nitroglycerin (200 mcg intraarterial after radial sheath insertion), Versed (1mg IV), Lidocaine 1% (local infiltration) Summary of Findings Right dominant coronary anatomy LM very long and large caliber without disease or calcification LAD Large Type II with large paralleling diagonal. Mild luminal irregularities LCX Very large caliber with OM and [address] Mild ectasia and luminal irregularities mid vessel RCA Very large caliber with long PDA and large trifurcating PV branch. Mild luminal irregularities only LV normal wall motion EF 55% Hemodynamics Rest Ao: 98/68/83 Final Ao: 101/61/81 LV: 106/5/9 Recommendations Medical therapy and/or Counseling Specimens None Radiation Exposure (mGy) 357 Contrast (mls) 120 Fluids (cc crystalloids) 70 Procedural Complication(s) None Disposition PCU ACC Data Cardiac Status Clinical evaluation leading to the procedure CAD Presntation: Stable angina, Positive Stress Test Anginal Classification: CCS III Heart Failure: No Cardiogenic Shock w/in 24Hrs: No Cardiac Arrest w/in 24Hrs: Yes Imaging studies past 6 months: Yes Standard Exercise Stress Test: No Stress Echocardiogram: Yes - Positive Coronary Anatomy Dominant: Right Left Main (% Stenosis): Normal LAD (% Stenosis): Mid (Type II Mild irregularities) D1 (% Stenosis): Normal (Large caliber) Circumflex (% Stenosis): Mid (Mild ectasia and luminal irregularities) OM1 (% Stenosis): Normal L PL1 (% Stenosis): Normal L PL2 (% Stenosis): Normal RCA (% Stenosis): Mid (Mild irregularities) R PDA (% Stenosis): Normal R PL1 (% Stenosis): Normal (large trifurcating) Ramus (% Stenosis): Normal (trivial vessel) Left Ventricular Angiography EF (%): 55 Mitral Regurgitation: None Diagnostic Physician's Name: Wolf,Last D.,M.D. Status: Urgent Closure Device Percutaneous Entry Location: Radial Closure Device: Radial Band Recommendations: Medical therapy and/or Counseling
--- NOTE | 2016-03-07 12:25 | Progress Note ---
Medicine Progress Note Date & Time of Visit: Mar 07, 2016 at 12:14. Subjective Pt was seen and examined Sitting in bed very comfortable with family at bedside Pt said that he feels fine he denies any chest pain, palpitation, dizziness and SOB He had cardiac cath done this morning He denies any tenderness around the right radial area Objective Last 8 Hrs Date Time Temp Pulse Resp B/P Pulse Ox O2 Delivery O2 Flow Rate FiO2 03/07/16 11:21 Room Air 03/07/16 11:00 36.0 63 16 123/81 94 Room Air 03/07/16 10:45 36.6 63 18 126/94 94 Room Air 03/07/16 10:30 36.6 52 18 125/84 94 03/07/16 10:15 36.6 48 16 117/78 94 Room Air 03/07/16 10:00 63 16 119/81 96 Room Air 03/07/16 09:55 61 16 113/68 95 Room Air 03/07/16 09:50 61 16 121/76 96 Room Air 03/07/16 09:45 60 16 115/71 95 Nasal Cannula 3 03/07/16 08:00 Room Air 03/07/16 07:51 36.6 76 18 134/87 96 03/07/16 07:18 36.5 61 16 97/62 94 Room Air 03/07/16 04:29 36.6 63 16 118/78 94 Physical Exam: General- no acute distress Head- atraumatic Eyes- PERRL, EOMI ENT- oropharynx clear Neck- supple, no JVD Lungs- clear to auscultation and percussion Heart- regular rhythm; no murmur Abdomen- normal bowel sounds, soft Extremities- no calf tenderness Neuro- alert, oriented x 3; PERRL, EOMI Skin- warm & dry Laboratory Results: Last 24 Hours Test 03/06/16 14:10 03/07/16 05:16 Activated Partial Thromboplast Time 55.1 SECONDS 32.5 SECONDS Partial Thromboplastin Ratio 2.1 1.3 Assessment & Plan Chest Pain -Developed chest discomfort during treadmill stress test -Possible related to unstable angina, non ST segment elevation acute coronary syndrome - Troponin are normal, No ST changes on EKG - Asymptomatic at this time - Cardiac Cath done today and was negative - Continue medical management with asa, beta do and statin HTN - continue atenolol and HCTZ - Lisinopril 5 mg was added - continue monitor BP - Controlled GERD - continue PPI DVT PROPHYLAXIS - on heparin drip during the hospital course CODE STATUS FULL CODE DISPOSITION Follow up appointment with your primary care Physician Dr. Levy on Mar 11 @ 2:10 pm Consultants: Cardiology Procedures: Coronary Angiography, Left Heart Cath, LV Angiography ECHO Interpretation Summary * Name: ANIL ESTEBAN Study Date: 03/04/2016 01:32 PM BP: 155/94 mmHg * Patient Location: [facility] HR: 46 * : 1960 (M/d/yyyy) Gender: Male Height: 70 in * Age: 55 yrs Ethnicity: [place] Weight: 199 lb * Ordering Physician: Arcadio Ford * Referring Physician: Self, Referred * Performed By: Noam Kendall RCS * * Reason For Study: CHEST PAIN * BSA: 2.1 m2 * -- Conclusions -- * STRESS STUDY: * The patient's presenting symptoms of left sided chest discomfort were reproduced at a low level of exercise and progressed / worsened with continue exercise and therefore the exercise test was terminated. * There was no EKG or echocardgraphic evidence of resting or inducible ischemia , however the test was limited by the low heart rate respone/ low work load. * The heart rate response was attenuated by chronic beta do therapy. * Despite normal wall motion, the clinical presentation suggests underlying coronary heart disease. * RESTING STUDY; * There is mild mitral regurgitation. * The aortic root diameter was at the upper limit of normal at 3.8 cm. * The proximal ascending thoracic aorta was not visualized adequately to permit measurement. Procedure Details * ECHOEX, CPT #[id number] * ECHO COLOR FLOW, CPT #[id number] * ECHO DOPPLER, CPT #[id number] Left Ventricle * The left ventricle is normal in size. * There is normal left ventricular wall thickness. * Left ventricular systolic function is normal. * Ejection Fraction = 60-65%. * Resting wall motion: Normal. Stress wall motion: Appropriate increase in Left ventricular systolic function and decrease in cavity size. No stress induced segmental wall motion abnormalities. Right Ventricle * The right ventricle is normal in size and function. Atria * The left atrial size is normal. * Right atrial size is normal. * No ASD detected; PFO is not assessed. Mitral Valve * The mitral valve is normal. * There is no mitral valve stenosis. * There is mild mitral regurgitation. Tricuspid Valve * The tricuspid valve is normal. * There is no tricuspid stenosis. * Significant tricuspid regurgitation is absent. Aortic Valve * The aortic valve is trileaflet. * No hemodynamically significant valvular aortic stenosis. * No aortic regurgitation is present. Pulmonic Valve * The pulmonic valve is not well visualized. Great Vessels * The aortic root diameter was at the upper limit of normal at 3.8 cm. The proximal ascending thoracic aorta was not visualized adequately to permit measurement. Pericardium * There is no pericardial effusion. Stress Parameters * The baseline EKG reveals sinus bradycardia at [address] segments. * The stress EKG was negative for ischemia. The heart rate response was attenuated due to underlying beta do therapy. * The stress portion of this study was personally supervised by the undersigned interpreting physician. * Rest heart rate was '46' BPM. * Rest blood pressure was '155/94' * Maximum heart rate achieved was 120 bpm. * Maximum heart rate was 73 % of maximum age-predicted heart rate. * Maximum blood pressure was '193/102' * Total exercise time was '5:18' * Maximum exercise MET level achieved was '7' METS * Maximum treadmill speed was '2.5' miles per hour. * Maximum treadmill elevation was '12'% grade. * Exercise was terminated due to 'PHYSCIANS DESCRETION' Left Ventricular Diastolic Function * Grade I diastolic dysfunction, (abnormal relaxation pattern). MMode 2D Measurements and Calculations IVSd 1.0 cm IVSs 1.3 cm LVIDd 5.4 cm LVIDs 3.5 cm LVPWd 1.0 cm LVPWs 1.4 cm IVS/LVPW 1.0 FS 34.7 % EDV(Teich) 139.9 ml ESV(Teich) 51.3 ml EF(Teich) 63.3 % EDV(cubed) 155.5 ml ESV(cubed) 43.4 ml EF(cubed) 72.1 % % IVS thick 28.7 % % LVPW thick 40.2 % LV mass(C)d 213.8 grams LV mass(C)dI 102.7 grams/m\S\2 LV mass(C)s 171.1 grams LV mass(C)sI 82.1 grams/m\S\2 CO(Teich) 5.0 l/min CI(Teich) 2.4 l/min/m\S\2 SV(Teich) 88.6 ml SI(Teich) 42.5 ml/m\S\2 CO(cubed) 6.3 l/min CI(cubed) 3.0 l/min/m\S\2 SV(cubed) 112.1 ml SI(cubed) 53.8 ml/m\S\2 Ao root diam 3.8 cm Ao root area 11.4 cm\S\2 ACS 1.8 cm LA dimension 3.9 cm LA/Ao 1.0 LVAd ap4 37.8 cm\S\2 LVLd ap4 9.2 cm EDV(MOD-sp4) 127.0 ml LVAs ap4 20.4 cm\S\2 LVLs ap4 7.3 cm ESV(MOD-sp4) 49.0 ml EF(MOD-sp4) 61.4 % LVAd ap2 36.7 cm\S\2 LVLd ap2 9.4 cm EDV(MOD-sp2) 118.0 ml LVAs ap2 20.2 cm\S\2 LVLs ap2 7.6 cm ESV(MOD-sp2) 46.0 ml EF(MOD-sp2) 61.0 % CO(MOD-sp4) 4.4 l/min CI(MOD-sp4) 2.1 l/min/m\S\2 SV(MOD-sp4) 78.0 ml SI(MOD-sp4) 37.4 ml/m\S\2 CO(MOD-sp2) 4.0 l/min CI(MOD-sp2) 1.9 l/min/m\S\2 SV(MOD-sp2) 72.0 ml SI(MOD-sp2) 34.6 ml/m\S\2 Doppler Measurements and Calculations MV E max rodrigue 60.5 cm/sec MV A max rodrigue 33.9 cm/sec MV E/A 1.8 MV P1/2t max rodrigue 78.7 cm/sec MV P1/2t 79.4 msec MVA(P1/2t) 2.8 cm\S\2 MV dec slope 290.4 cm/sec\S\2 MV dec time 0.24 sec Ao V2 max 109.5 cm/sec Ao max PG 4.8 mmHg Ao max PG (full) 3.0 mmHg LV V1 max PG 1.8 mmHg LV V1 max 66.2 cm/sec PA V2 max 70.2 cm/sec PA max PG 2.0 mmHg PI max rodrigue 135.7 cm/sec PI max PG 7.4 mmHg PI dec slope 81.1 cm/sec\S\2 PI P1/2t 490.3 msec Created: Initialized: 03/04/16; 1615 <Electronically signed by Preston Baron D.O.> Signed: 03/07/16 1122 Preston Baron D.O. The status of this report is Signed. Draft = Not yet reviewed or approved by Roading Engineer. Signed = Reviewed and approved by Roading Engineer. Current Inpatient Medications: Current Inpatient Medications Medications (Trade) Dose Ordered Sig/Fabby Route Start Time Stop Time Status Last Admin Dose Admin Acetaminophen (Tylenol Tab) 650 mg Q4H PRN PO 03/04/16 16:00 04/03/16 15:59 03/05/16 20:46 650 MG Ondansetron HCl (Zofran Inj) 4 mg Q6H PRN IV 03/04/16 16:00 04/03/16 15:59 Rosuvastatin Calcium (Crestor Tab) 10 mg HS PO 03/04/16 21:00 04/03/16 20:59 03/06/16 21:09 10 MG Aspirin (Ecotrin Tab) 81 mg DAILY PO 03/05/16 09:00 04/04/16 08:59 03/07/16 07:55 81 MG Atenolol (Tenormin Tab) 50 mg DAILY PO 03/05/16 09:00 04/04/16 08:59 03/07/16 07:49 50 MG Hydrochlorothiazide (Hydrochlorothiazide Tab) 12.5 mg QD@08 PO 03/05/16 08:00 04/04/16 07:59 03/07/16 10:20 12.5 MG Pantoprazole Sodium 40 mg 40 mg DAILY PO 03/05/16 09:00 04/04/16 08:59 1/23/17 07:50 40 MG Heparin Sodium/ Dextrose (Heparin 25,000 Unit/500ml D5W) 500 ml @ 26 mls/hr [id number] PRN IV 03/04/16 22:15 04/03/16 22:14 Future Hold 03/06/16 22:13 26 MLS/HR Lisinopril 5 mg 5 mg QAM PO 03/06/16 09:00 04/05/16 08:59 03/07/16 07:51 5 MG Sodium Chloride 1,000 ml @ 125 mls/hr Q8H IV 03/07/16 10:12 03/07/16 13:00 Sodium Chloride (Nss 1000ml) 250 ml @ 999 mls/hr Q16M PRN IV 03/07/16 10:12 04/06/16 10:11 Atropine Sulfate (Atropine Sulfate 0.1MG/Ml Inj) 0.6 mg PRN PRN IV 03/07/16 10:15 04/06/16 10:14
--- NOTE | 2016-03-07 12:42 | CARDIOLOGY PROGRESS NOTE ---
DATE: 03/07/2016 The patient seen and examined. Chart, medications, telemetry reviewed. Of note, the patient was seen post-cardiac catheterization, doing well, tolerated the procedure well. Study demonstrated very large caliber coronaries with mild luminal irregularities consistent very early atherosclerosis, but no obstructive disease. Currently denies any chest discomfort. PHYSICAL EXAMINATION: VITAL SIGNS: Heart rate is 63, blood pressure is 123/81. NECK: Thin. There is no jugular venous distention. LUNGS: Clear. CARDIOVASCULAR: Regular. Right radial puncture site is intact. EXTREMITIES: Without edema. IMPRESSION: A 55-year-old male presented with acute chest pain and discomfort. Cardiac enzymes, EKGs negative. Stress testing did demonstrate exacerbation of symptoms though with hypertensive blood pressure response. RECOMMENDATIONS: Treat underlying early atherosclerosis with management of lipids. The patient was begun on rosuvastatin. Would continue. He was also begun on low dose lisinopril at 5 mg per day. Would continue, in addition to atenolol, aspirin and hydrochlorothiazide. Follow up with primary care physician in 1-2 weeks.
[2016-03-07] MEDS ORDERED: LSN5 PO (13:52)
[2016-03-07] MEDS ORDERED: CRS10 PO (13:52)
--- NOTE | 2016-03-07 14:09 | Discharge Instructions ---
Discharge Instructions Admission Reason for Admission: Chest Pain Discharge Discharge Diagnosis / Problem: Chest pain, HTN Discharge Goals Goal(s): Decrease discomfort, Improve function, Improve disease control Activity Recommendations Activity Limitations: resume your previous activity . Instructions / Follow-Up Instructions / Follow-Up Follow up appointment with your primary care physician with Dr. Levy on Mar 11 at 12:50 Starting on statin, your PCP will check your liver enzymes Starting on lisinopril, please check BMP Continue monitor blood pressure Keep right wrist area clean and watch for redness, pain, swelling and drainage Current Hospital Diet Patient's current hospital diet: AHA Diet (Heart Healthy) Discharge Diet Recommended Diet: AHA Diet (Heart Healthy) Procedures Procedures Performed: Cardiac cath Stress test Pending Studies Studies pending at discharge: no Medical Emergencies . Who to Call and When: Medical Emergencies: If at any time you feel your situation is an emergency, please call 911 immediately. . Non-Emergent Contact Non-Emergency issues call your: Primary Care Provider Call Non-Emergent contact if: you have any medication questions . . "Provider Documentation" section prepared by Latisha Martinez. VTE Core Measure Inpt VTE Proph given/why not?: Other Anticoagulation (heparin drip)
--- NOTE | 2016-03-11 13:09 | Discharge Summary ---
Discharge Summary Admission Date: Mar 04, 2016 at 15:53 Discharge Date: Mar 07, 2016 Discharge Disposition: Home Principal Diagnosis: Chest Pain Secondary Diagnoses/Problems: HTN GERD Procedures: Coronary Angiography, Left Heart Cath, LV Angiography ECHO Interpretation Summary * Name: ANIL ESTEBAN Study Date: 03/04/2016 01:32 PM BP: 155/94 mmHg * Patient Location: [facility] HR: 46 * : 1960 (M/d/yyyy) Gender: Male Height: 70 in * Age: 55 yrs Ethnicity: [place] Weight: 199 lb * Ordering Physician: Arcadio Ford * Referring Physician: Self, Referred * Performed By: Noam Kendall RCS * * Reason For Study: CHEST PAIN * BSA: 2.1 m2 * -- Conclusions -- * STRESS STUDY: * The patient's presenting symptoms of left sided chest discomfort were reproduced at a low level of exercise and progressed / worsened with continue exercise and therefore the exercise test was terminated. * There was no EKG or echocardgraphic evidence of resting or inducible ischemia , however the test was limited by the low heart rate respone/ low work load. * The heart rate response was attenuated by chronic beta do therapy. * Despite normal wall motion, the clinical presentation suggests underlying coronary heart disease. * RESTING STUDY; * There is mild mitral regurgitation. * The aortic root diameter was at the upper limit of normal at 3.8 cm. * The proximal ascending thoracic aorta was not visualized adequately to permit measurement. Procedure Details * ECHOEX, CPT #[id number] * ECHO COLOR FLOW, CPT #[id number] * ECHO DOPPLER, CPT #[id number] Left Ventricle * The left ventricle is normal in size. * There is normal left ventricular wall thickness. * Left ventricular systolic function is normal. * Ejection Fraction = 60-65%. * Resting wall motion: Normal. Stress wall motion: Appropriate increase in Left ventricular systolic function and decrease in cavity size. No stress induced segmental wall motion abnormalities. Right Ventricle * The right ventricle is normal in size and function. Atria * The left atrial size is normal. * Right atrial size is normal. * No ASD detected; PFO is not assessed. Mitral Valve * The mitral valve is normal. * There is no mitral valve stenosis. * There is mild mitral regurgitation. Tricuspid Valve * The tricuspid valve is normal. * There is no tricuspid stenosis. * Significant tricuspid regurgitation is absent. Aortic Valve * The aortic valve is trileaflet. * No hemodynamically significant valvular aortic stenosis. * No aortic regurgitation is present. Pulmonic Valve * The pulmonic valve is not well visualized. Great Vessels * The aortic root diameter was at the upper limit of normal at 3.8 cm. The proximal ascending thoracic aorta was not visualized adequately to permit measurement. Pericardium * There is no pericardial effusion. Stress Parameters * The baseline EKG reveals sinus bradycardia at [address] segments. * The stress EKG was negative for ischemia. The heart rate response was attenuated due to underlying beta do therapy. * The stress portion of this study was personally supervised by the undersigned interpreting physician. * Rest heart rate was '46' BPM. * Rest blood pressure was '155/94' * Maximum heart rate achieved was 120 bpm. * Maximum heart rate was 73 % of maximum age-predicted heart rate. * Maximum blood pressure was '193/102' * Total exercise time was '5:18' * Maximum exercise MET level achieved was '7' METS * Maximum treadmill speed was '2.5' miles per hour. * Maximum treadmill elevation was '12'% grade. * Exercise was terminated due to 'PHYSCIANS DESCRETION' Left Ventricular Diastolic Function * Grade I diastolic dysfunction, (abnormal relaxation pattern). MMode 2D Measurements and Calculations IVSd 1.0 cm IVSs 1.3 cm LVIDd 5.4 cm LVIDs 3.5 cm LVPWd 1.0 cm LVPWs 1.4 cm IVS/LVPW 1.0 FS 34.7 % EDV(Teich) 139.9 ml ESV(Teich) 51.3 ml EF(Teich) 63.3 % EDV(cubed) 155.5 ml ESV(cubed) 43.4 ml EF(cubed) 72.1 % % IVS thick 28.7 % % LVPW thick 40.2 % LV mass(C)d 213.8 grams LV mass(C)dI 102.7 grams/m\\S\\2 LV mass(C)s 171.1 grams LV mass(C)sI 82.1 grams/m\\S\\2 CO(Teich) 5.0 l/min CI(Teich) 2.4 l/min/m\\S\\2 SV(Teich) 88.6 ml SI(Teich) 42.5 ml/m\\S\\2 CO(cubed) 6.3 l/min CI(cubed) 3.0 l/min/m\\S\\2 SV(cubed) 112.1 ml SI(cubed) 53.8 ml/m\\S\\2 Ao root diam 3.8 cm Ao root area 11.4 cm\\S\\2 ACS 1.8 cm LA dimension 3.9 cm LA/Ao 1.0 LVAd ap4 37.8 cm\\S\\2 LVLd ap4 9.2 cm EDV(MOD-sp4) 127.0 ml LVAs ap4 20.4 cm\\S\\2 LVLs ap4 7.3 cm ESV(MOD-sp4) 49.0 ml EF(MOD-sp4) 61.4 % LVAd ap2 36.7 cm\\S\\2 LVLd ap2 9.4 cm EDV(MOD-sp2) 118.0 ml LVAs ap2 20.2 cm\\S\\2 LVLs ap2 7.6 cm ESV(MOD-sp2) 46.0 ml EF(MOD-sp2) 61.0 % CO(MOD-sp4) 4.4 l/min CI(MOD-sp4) 2.1 l/min/m\\S\\2 SV(MOD-sp4) 78.0 ml SI(MOD-sp4) 37.4 ml/m\\S\\2 CO(MOD-sp2) 4.0 l/min CI(MOD-sp2) 1.9 l/min/m\\S\\2 SV(MOD-sp2) 72.0 ml SI(MOD-sp2) 34.6 ml/m\\S\\2 Doppler Measurements and Calculations MV E max rodrigue 60.5 cm/sec MV A max rodrigue 33.9 cm/sec MV E/A 1.8 MV P1/2t max rodrigue 78.7 cm/sec MV P1/2t 79.4 msec MVA(P1/2t) 2.8 cm\\S\\2 MV dec slope 290.4 cm/sec\\S\\2 MV dec time 0.24 sec Ao V2 max 109.5 cm/sec Ao max PG 4.8 mmHg Ao max PG (full) 3.0 mmHg LV V1 max PG 1.8 mmHg LV V1 max 66.2 cm/sec PA V2 max 70.2 cm/sec PA max PG 2.0 mmHg PI max rodrigue 135.7 cm/sec PI max PG 7.4 mmHg PI dec slope 81.1 cm/sec\\S\\2 PI P1/2t 490.3 msec Created: Initialized: 03/04/16; 1615 <Electronically signed by Preston Baron D.O.> Signed: 03/07/16 1122 Preston Baron D.O. The status of this report is Signed. Draft = Not yet reviewed or approved by Drier Tender Naphthalene. Signed = Reviewed and approved by Drier Tender Naphthalene. Consultations: Cardiology Medication Reconciliation New Medications: Lisinopril (Lisinopril) 5 Mg Tab 5 MG PO QAM for 30 Days, #30 TAB Rosuvastatin Calcium (Crestor) 10 Mg Tab 10 MG PO HS for 30 Days, TAB Continued Medications: Aspirin (Aspirin EC Low Dose) 81 Mg Ectab 81 MG PO DAILY Atenolol (Tenormin) 25 Mg Tab 50 MG PO DAILY, 0 Refills Hydrochlorothiazide (Hctz *) 12.5 Mg Cap 12.5 MG PO QD@08, #30 0 Refills Lansoprazole (Prevacid) 30 Mg Capcr 30 MG PO DAILY, 0 Refills Admission Information HPI (per Admitting provider): 55 year old male who presents to the ER with chest pain. Patient reports that this morning while drinking coffee he developed left lower chest pain. Patient describes the pain as a stabbing and rated it #6/10 at its worst. He reports the pain lasted a few minutes and then resolved on its own. He then was driving to work then the pain returned. He went to the [facility] and was referred to the ER for further evaluation. Upon arrival to the ER, patient was given full dose ASA and SL nitro and had resolution of his symptoms. Patient reports he had associated shortness of breath, nausea, diaphoresis, and lightheadedness. He has noticed he has been more fatigued the past few weeks. He denies exertional shortness of breath. No abdominal pain, vomiting, or diarrhea. No fever or chills. He denies any urinary symptoms. In the ER, troponins were trended x 2 and were negative. EKG did not show any acute ST changes. Patient was referred for exercise stress test. During the stress test, patient had reproduction of his symptoms. EKG did not show any signs of ischemia. He was given SL nitro with resolution of his pain. Physical Exam (per Admitting): General Appearance: no apparent distress Head: normocephalic Eyes: normal inspection ENT: hearing grossly normal Neck: supple, no JVD Respiratory/Chest: chest non-tender, lungs clear, normal breath sounds, no respiratory distress Cardiovascular: regular rate, rhythm, no edema, normal peripheral pulses Abdomen/GI: normal bowel sounds, non tender, soft Extremities/Musculoskelatal: normal inspection, no calf tenderness Neurologic/Psych: no motor/sensory deficits, alert, normal mood/affect, oriented x 3 Skin: normal color, warm/dry Hospital Course Chest Pain -Developed chest discomfort during treadmill stress test -Possible related to unstable angina, non ST segment elevation acute coronary syndrome - Troponin are normal, No ST changes on EKG - Asymptomatic at this time - Cardiac Cath done today and was negative - Continue medical management with asa, beta do and statin HTN - continue atenolol and HCTZ - Lisinopril 5 mg was added - continue monitor BP - Controlled GERD - continue PPI DVT PROPHYLAXIS - on heparin drip during the hospital course CODE STATUS FULL CODE DISPOSITION Follow up appointment with your primary care Physician Dr. Levy on Mar 11 @ 2:10 pm Total time spent on discharge = 35 minutes This includes examination of the patient, discharge planning, medication reconciliation, and communication with other providers. Discharge Instructions Discharge Instructions Admission Reason for Admission: Chest Pain Discharge Discharge Diagnosis / Problem: Chest pain, HTN Discharge Goals Goal(s): Decrease discomfort, Improve function, Improve disease control Activity Recommendations Activity Limitations: resume your previous activity . Instructions / Follow-Up Instructions / Follow-Up Follow up appointment with your primary care physician with Dr. Levy on Mar 11 at 12:50 Starting on statin, your PCP will check your liver enzymes Starting on lisinopril, please check BMP Continue monitor blood pressure Keep right wrist area clean and watch for redness, pain, swelling and drainage Current Hospital Diet Patient's current hospital diet: AHA Diet (Heart Healthy) Discharge Diet Recommended Diet: AHA Diet (Heart Healthy) Procedures Procedures Performed: Cardiac cath Stress test Pending Studies Studies pending at discharge: no Medical Emergencies . Who to Call and When: Medical Emergencies: If at any time you feel your situation is an emergency, please call 911 immediately. . Non-Emergent Contact Non-Emergency issues call your: Primary Care Provider Call Non-Emergent contact if: you have any medication questions . . "Provider Documentation" section prepared by Latisha Martinez. VTE Core Measure Inpt VTE Proph given/why not?: Other Anticoagulation (heparin drip) Additional Copies To Ahsan Levy M.D.
--- NOTE | 2016-04-11 21:41 | EMERGENCY ROOM VISIT NOTE ---
History First contact with patient: 09:56 Chief Complaint: CHEST PAIN Stated Complaint: CHEST & STOMACH PAINS Nursing Triage Summary: Pt c/o lower left sided CP that started at 0630 this morning. Pt describes it as "needles" Pt reports he did get sweaty and dry mouth Pain worse with inspiration denies heart hx History of Present Illness The patient is a 55 year old male who presents to the Emergency Room with complaints of left lower chest pain, nausea and sweatiness. The patient reports that he was getting ready for work at 6:30 AM this morning when he developed the pain that he describes as "a sharp sensation like needles". Shortly thereafter, he then started to develop nausea and diaphoresis. The patient denied any pain radiating into the abdomen, neck or left upper extremity. The patient reports that he did take a baby aspirin this morning before leaving for work. The patient reports that the pain has slightly improved. He denies any prior history of heart disease or strong family history of the same. He reports tobacco use socially. He does not know if he has had a prior history of hypercholesterolemia. At the current time, the patient rates his discomfort a 6 out of 10. Review of Systems HEENT: Denies dizziness, visual problems, hearing loss, tinnitus. Denies difficulty swallowing or oral lesions. PULMONARY: Denies cough, shortness of breath, sputum production or hemoptysis. CARDIOVASCULAR: Denies recent palpitations, dyspnea on exertion, orthopnea or peripheral edema. Otherwise see history of present illness. GASTROINTESTINAL: Denies diarrhea, constipation or abdominal pain. GENITOURINARY: Denies dysuria, frequency, urgency or nocturia. NEUROLOGIC: Denies history of epilepsy, CVA, TIA or chronic headaches. MUSCULOSKELETAL: Denies history of joint tenderness/swelling. SKIN: Denies rashes or lesions. PSYCHIATRIC: Denies history of depression or mental illness. ENDOCRINE: Denies history of diabetes or thyroid disorders. Past Medical/Surgical History Medical Problems: (1) Dyslipidemia (2) GERD (gastroesophageal reflux disease) (3) HTN (hypertension) (4) Hypertension Nos Surgical Problems: (1) No history of previous surgery Family History FH: cancer Social History Smoking Status: Current Some Day Smoker Alcohol Use: occasionally Marital Status: Occupation Status: employed Current/Historical Medications Scheduled Aspirin (Aspirin EC Low Dose), 81 MG PO DAILY Atenolol (Tenormin), 50 MG PO DAILY Hydrochlorothiazide (Hctz *), 12.5 MG PO QD@08 Lansoprazole (Prevacid), 30 MG PO DAILY Lisinopril (Lisinopril), 5 MG PO QAM Rosuvastatin Calcium (Crestor), 10 MG PO HS Allergies Coded Allergies: No Known Allergies (Unverified , 03/04/16) Physical Exam Vital Signs Date Time Temp Pulse Resp B/P Pulse Ox O2 Delivery O2 Flow Rate FiO2 03/04/16 15:29 53 18 142/95 53 Room Air 03/04/16 13:30 61 14 107/62 99 Room Air 03/04/16 13:12 46 03/04/16 11:26 47 16 141/87 98 Room Air 03/04/16 10:45 48 18 154/88 97 Room Air 03/04/16 10:24 59 16 141/93 96 Room Air 03/04/16 10:15 98 Room Air 03/04/16 10:05 51 03/04/16 10:01 36.7 51 18 165/115 99 Room Air 03/04/16 10:01 99 Room Air Physical Exam CONSTITUTIONAL: Healthy and well nourished. Alert and oriented X 3 with positive affect. Patient is noted to be mildly diaphoretic. HEENT: Normocephalic, atraumatic. Pupils equal, round and reactive. Ears and nares are clear. No scleral icterus or conjunctival injection/pallor. NECK: Full active range of motion without discomfort. No JVD or carotid bruits appreciated. RESPIRATORY: Clear to auscultation bilaterally with no wheezing, crackles, rhonchi or stridor. CARDIOVASCULAR: Regular rate and rhythm with no murmurs, rubs or gallops. GASTROINTESTINAL: Bowel sounds present in all quadrants. No abdominal tenderness to palpation. No hepatosplenomegaly. Negative CVA tenderness. MUSCULOSKELETAL: Full range of motion of all joints without discomfort. INTEGUMENTARY: No rash or other significant dermatologic conditions noted. She does diaphoretic. HEMATOLOGIC: No ecchymosis or petechiae noted. NEUROLOGIC: Cranial nerves II-XII grossly intact. No focal neurologic deficits noted. Medical Decision & Procedures ER Provider Diagnostic Interpretation: My interpretation of an initial ECG shows a sinus bradycardia of [address] elevation, T-wave inversion or other conduction abnormalities. My interpretation of a repeat ECG approximately 3 hours later showed persistent sinus bradycardia of 46 bpm. The patient still had no further ST elevation or T -wave inversion. My interpretation of an initial portable chest x-ray did not show any acute consolidations, pneumothorax or significant cardiac prominence. Radiologist report was as follows: SINGLE VIEW CHEST CLINICAL HISTORY: Atypical chest pain. FINDINGS: An AP, portable, upright chest radiograph is obtained. No prior studies are available for comparison at the time of dictation. The examination is degraded by portable technique and patient rotation. The cardiomediastinal silhouette is top normal for projection. There are low lung volumes with mild bibasilar atelectasis. No airspace consolidation, large pleural effusion, or pneumothorax is seen. The bony thorax is grossly intact. IMPRESSION: Bibasilar atelectasis with no acute cardiopulmonary abnormality. Chest CT angiography does not show any evidence for pulmonary emboli. The ascending thoracic aorta measures up to 4.1 cm. cardiomegaly is noted. Radiologist report is as follows: CT ANGIOGRAM OF THE CHEST CLINICAL HISTORY: Atypical chest pain. COMPARISON STUDY: Chest x-ray dated 03/04/2016. TECHNIQUE: Following the IV administration of 91 cc of Optiray 320, CT angiogram of the chest was performed from the upper abdomen to the thoracic inlet utilizing the pulmonary embolus protocol. Images are reviewed in the axial, sagittal, and coronal planes. 3-D MIPS images are created and assessed. IV contrast was administered without complication. CT DOSE: 458.62 mGy.cm FINDINGS: Thyroid: Imaged portions of the thyroid gland are normal in size and attenuation. Thoracic aorta: There is minimal ectasia of the ascending thoracic aorta which measures up to 4.1 cm in diameter. The remainder of the thoracic aorta is normal in caliber. The arch demonstrates standard 3-vessel anatomy. The thoracic aorta was not well opacified. Pulmonary vasculature: The pulmonary trunk is normal in caliber. There are no filling defects identified in main, lobar, or segmental pulmonary branches to suggest pulmonary embolus. Heart: The heart is mildly enlarged and without pericardial effusion. Lungs and pleural spaces: Evaluation of the lung parenchyma is mildly degraded by respiratory motion artifact. There is no airspace consolidation or pleural effusion. Dependent atelectasis is observed. There are scattered calcified granulomas. A 3 mm left lower lobe nodule is seen on image #175. The trachea and central airways are clear. Mediastinum: There is no mediastinal lymphadenopathy. Mary Ann: Clear. Axillae: There is no axillary lymphadenopathy. Upper abdomen: A 13 mm cyst is seen in the left lobe of the liver. There is a small hiatal hernia. Skeletal structures: No lytic or blastic bony lesions are seen. IMPRESSION: 1. There is no evidence of pulmonary embolus in the main, lobar, or segmental pulmonary arteries. 2. There is no airspace consolidation or pleural effusion. 3. Cardiomegaly. 4. There is mild ectasia of the ascending thoracic aorta which measures up to 4.1 cm in diameter. The remainder of the thoracic aorta is normal in caliber. 5. There is a 3 mm left lower lobe pulmonary nodule. This is indeterminant but low suspicion and can be followed if clinically warranted. Please refer to below summary of Fleischner criteria recommendations for follow-up of incidental CT nodules (Gisell Akins, Guidelines for management of small pulmonary nodules detected on CT scans: A statement from the Fleischner Society, Radiology 237: [phone].) Low Risk Patient: Minimal or no smoking or other known risk factors for malignancy <=4 mm: No follow-up needed. >4-6 mm: Initial follow-up CT at 12 months; if unchanged, no further follow-up. >6-8 mm: Initial follow-up CT at 6-12 months then at 18-24 months if no change. >8 mm: Follow-up CT at \\R\\3, 9, 24 months, or PET and/or biopsy. High Risk Patient: History of smoking or other known risk factors <=4 mm: Follow-up at 12 months; if unchanged, no further follow-up. >4-6 mm: Initial follow-up CT at 6-12 months then at 18-24 months if no change. >6-8 mm: Initial follow-up CT at 3-6 months then at 9-12 and 24 months if no change. >8 mm: Same as low risk patient. Note: Nodule size measured as average of length and width. Ground glass or partly solid nodules may require longer follow-up to exclude indolent adenocarcinoma. Laboratory Results Test 03/04/16 10:10 03/04/16 10:11 03/04/16 12:54 Immature Granulocyte % (Auto) 0.2 % White Blood Count 8.31 K/uL (4.8-10.8) Red Blood Count 5.09 M/uL (4.7-6.1) Hemoglobin 16.0 g/dL (14.0-18.0) Hematocrit 46.3 % (42-52) Mean Corpuscular Volume 91.0 fL (80-100) Mean Corpuscular Hemoglobin 31.4 pg (25-34) Mean Corpuscular Hemoglobin Concent 34.6 g/dl (32-36) Platelet Count 238 K/uL (130-400) Mean Platelet Volume 10.2 fL (7.4-10.4) Neutrophils (%) (Auto) 74.7 % Lymphocytes (%) (Auto) 15.8 % Monocytes (%) (Auto) 5.9 % Eosinophils (%) (Auto) 3.0 % Basophils (%) (Auto) 0.4 % Neutrophils # (Auto) 6.21 K/uL (1.4-6.5) Lymphocytes # (Auto) 1.31 K/uL (1.2-3.4) Monocytes # (Auto) 0.49 K/uL (0.11-0.59) Eosinophils # (Auto) 0.25 K/uL (0-0.5) Basophils # (Auto) 0.03 K/uL (0-0.2) Immature Granulocyte # (Auto) 0.02 K/uL (0.00-0.02) Total Bilirubin 0.6 mg/dl (0.2-1) Direct Bilirubin 0.1 mg/dl (0-0.2) Aspartate Amino Transf (AST/SGOT) 11 U/L (15-37) Alanine Aminotransferase (ALT/SGPT) 27 U/L (12-78) Alkaline Phosphatase 79 U/L (45-117) Total Creatine Kinase 108 U/L (39-308) Total Protein 7.3 gm/dl (6.4-8.2) Albumin 3.9 gm/dl (3.4-5.0) Lipase 174 U/L (73-393) Bedside D-Dimer > 450 ng/mlFEU (0-450) Bedside Troponin I 0.000 ng/ml (0-0.045) The above labs were reviewed. Bedside d-dimer was elevated, prompting chest CT angiography. Bedside d-dimer 2, repeated 3 hours apart, was normal. Remaining labs were also normal. Medications Administered Medications (Trade) Dose Ordered Sig/Fabby Route Start Time Stop Time Status Last Admin Dose Admin Nitroglycerin (Nitrostat Tab) 0.4 mg Q5M PRN SL 03/04/16 10:15 03/05/16 11:12 DC 03/04/16 10:13 0.4 MG Aspirin (Aspirin Chew) 243 mg NOW STAT PO 03/04/16 10:04 03/04/16 10:07 DC 03/04/16 10:13 243 MG ED Course Patient history and physical exam were performed. Nurse's notes were reviewed. Vital signs were reviewed, showing a bradycardia in triage. Blood pressure was elevated at 165/115. O2 saturation is normal. It is noted that the patient is diaphoretic, and rated his pain a 5 out of 10 prior to arrival. The patient reports that he did self administer a baby aspirin this morning. He was given additional aspirin 243 mg chew. The patient was also administered a sublingual nitroglycerin which completely resolved his pain. An initial ECG and portable chest x-ray were grossly normal. Initial bedside troponin and remaining labs were also normal, except for an elevated d-dimer. This prompted chest CT angiography which showed no evidence for pulmonary emboli. He does have dilatation of the ascending aorta, and a 3 mm indeterminate left base nodule. A repeat ECG and bedside troponin at 3 hours continued to remain normal. I spoke with the patient approximately 15 minutes regarding my concern for relief of his chest pain with the nitroglycerin. Although his laboratory studies and ECG tracings are normal, I explained the importance of serial studies to rule out evolving myocardial infarction. The patient initially refused, and reported that he would rather go home. His , who is also a nurse, was also present. At this point, the case was discussed further with my attending physician, Dr. Mac, who also discussed her concern with the patient. The patient then wanted to know if we could potentially talk to the mail handler assistant directly for stress testing as opposed to admission. I was able to contact Dr. Baron, [facility] mail handler assistant, who reported that he could do a stress echo within the next few hours. The patient was in agreement to undergo this procedure. He to need to remain asymptomatic after his nitroglycerin administration. Stress echocardiogram was performed, and the patient was unable to finish the test because of chest pain. Dr. Baron administered nitroglycerin, again with complete resolution of his pain. Dr. Baron has requested telemetry admission, and either Dr. Bloom or Dr. Mae will perform catheterization on Monday. I spoke with the [facility] service regarding this admission. Please see their dictation for further treatment and final disposition. Medical Decision Patient presents to the emergency department with chest pain, diaphoresis and nausea this morning. His symptoms did improve with nitroglycerin. Although his serial testing in the emergency department has been normal so far, the patient was unable to tolerate a stress test because of chest pain that again was relieved with nitroglycerin. Workup today does not suggest aortic dissection, pneumonia or pneumothorax. Impression Primary Impression: Unstable angina Departure Information Prescriptions Rosuvastatin Calcium (Crestor) 10 Mg Tab 10 MG PO HS for 30 Days, TAB Prov: Latisha Martinez M.D. 03/07/16 Lisinopril (Lisinopril) 5 Mg Tab 5 MG PO QAM for 30 Days, #30 TAB Prov: Latisha Martinez M.D. 03/07/16 Referrals Ahsan Levy M.D. (PCP) Patient Instructions My [facility]
== END 2016-03-07 14:38 | disposition home or self-care (01) | DRG 287 ==
LOC: ENRESERVTM → ENRESERVDT → C.EDB 09:48 → C.2T 15:53
PROVIDERS: ADMIT Internal Medicine; ATTEND Internal Medicine
PROC: B2111ZZ Fluoroscopy of Multiple Coronary Arteries using Low Osmolar Contrast (ICD-10-PCS; principal; 2016-03-07 08:59)
PROC: B2151ZZ Fluoroscopy of Left Heart using Low Osmolar Contrast (ICD-10-PCS; principal; 2016-03-07 08:59)
PROC: 4A023N7 Measurement of Cardiac Sampling and Pressure, Left Heart, Percutaneous Approach (ICD-10-PCS; principal; 2016-03-07 08:59)
DX: I25.110 Atherosclerotic heart disease of native coronary artery with unstable angina pectoris (principal); E78.5 Hyperlipidemia, unspecified; I10 Essential (primary) hypertension; K21.9 Gastro-esophageal reflux disease without esophagitis; R00.1 Bradycardia, unspecified

== ENCOUNTER 2023-06-21 11:50 | Inpatient (IN) ==
[2023-06-21 12:30] LABS: Basophils # (auto) 0.04 K/uL (0.00-0.20); Basophils % (auto) 0.6 %; Eosinophils # (auto) 0.28 K/uL (0.00-0.50); Eosinophils % (auto) 4.2 %; Hematocrit (blood only) 50.7 % (42.0-52.0); Hemoglobin 17.1 g/dl (14.0-18.0); Immature Granulocytes # (auto) 0.02 K/uL (0.01-0.20); Immature Granulocytes % (auto) 0.3 %; Lymphocytes # (auto) 0.99 K/uL (1.20-3.40); Lymphocytes % (auto) 14.8 %; Mean Corpuscular Hemoglobin 30.9 pg (25.0-34.0); Mean Corpuscular Hgb Conc 33.7 g/dL (32.0-36.0); Mean Corpuscular Volume 91.7 fL (80.0-100.0); Mean Platelet Volume 10.5 fL (9.4-12.4); Monocytes # (auto) 0.63 K/uL (0.11-0.59); Monocytes % (auto) 9.4 %; Neutrophils # (auto) 4.74 K/uL (1.40-6.50); Neutrophils % (auto) 70.7 %; Platelet Count 238 K/uL (130-400); RDW Coefficient of Variation 13.5 % (11.5-14.5); RDW Standard Deviation 45.8 fL (36.4-46.3); Red Blood Count 5.53 M/uL (4.70-6.10)
--- OUTSIDE RECORDS SUMMARY | 2023-06-21 12:50 | External Medical Summary | Summary of Care ---
Author Name Unknown Organization [facility] Address [address] [place] [address] Phone [phone] Care Team Providers Care Drill Press Set Up Operator Name Role Phone Ahsan Levy MD Primary Care Provider [phone]- [phone] Reason for Referral * Evaluate & Treat - Unlimited Visits (Within 10 days (routine)) - Pending Review Specialty Diagnoses / Procedures Referred By Contnell t Referred To Contact Gastroenterology Diagnoses Gastroesophageal reflux disease without esophagitis Epigastric pain Ahsan Levy MD [address] [place] [address] Referral ID Status Reason Start Date Expiration Date Visits Requested Visits Authorized [id number] Pending Review Specialty Services Required 06/19/[phone] Question Answer Referral Priority Within 10 days (routine) Where should this appointment be scheduled? [facility] For what condition is the patient being referred? All Gastro Conditions Comments ACUTE GI Issues Encounter Details Date Type Department Care Team (Late st Contact Info) Description 06/19/2023 Orders Only [facility], [address] *DO NOT REMOVE THIS DEPARTMENT* [place] [id number] Request, External Referral Gastroesophageal reflux disease without esophagitis*; Epigastric pain Allergies No known active allergiesdocumented as of this encounter (statuses as of 06/19/2023) Medications Medication Sig Dispensed Refills Start Date End Date Status ASPIRIN 81 MG PO CHEWIndications:Rout ine medical exam One pill by mouth once a day with food 100 Tab 5 10/13/2010 Active Lansoprazole 30 MG Oral Capsule Delayed Release (Prevacid)Indication s:Gastroesophageal reflux disease without esophagitis TAKE 1 CAPSULE BY MOUTH ONCE DAILY 30 MINUTES BEFORE THE FIRST MEAL OF THE DAY 90 Capsule 2 09/28/2022 Active Lisinopril 10 MG Oral Tablet (Prinivil)Indication s:HTN, goal below 140/90 Take 1 tablet by mouth once daily 90 Tablet 2 09/28/2022 Active hydroCHLOROthiazide 12.5 MG Oral Capsule (Hydrodiuril) Take 1 capsule by mouth once daily 90 Capsule 2 09/28/2022 Active Ezetimibe 10 MG Oral Tablet (Zetia)Indications:D yslipidemia Take 1 Tablet by mouth in the morning. 90 Tablet 3 09/30/2022 Active Sildenafil Citrate 20 MG Oral Tablet (Revatio)Indications :Erectile dysfunction, unspecified erectile dysfunction type TAKE 1 TABLET BY MOUTH THREE TIMES DAILY NEEDED DIRECTED 60 Tablet 1 04/11/2023 Active documented as of this encounter (statuses as of 06/19/2023) Active Problems Problem Noted Date Diagnosed Date Erectile dysfunction 01/23/2019 Inguinal hernia of right danny e with obstruction and without gangrene 06/16/2017 Dyslipidemia, goal LDL below 100 01/18/2013 HTN, GOAL BELOW 140/90 01/01/2009 Overview: Modified per HTN protocol #16. documented as of this encounter (statuses as of 06/19/2023) Resolved Problems Problem Noted Date Diagnosed Date Resolved Date Elevated prostate specific antigen (PSA) 08/09/2011 12/09/2016 Dyslipidemia, goal to be determined 05/08/2001 01/18/2013 Esophageal reflux 03/15/2001 03/13/2019 Family history of malignant neoplasm of prostate 03/15/2001 06/16/2017 IMPOTENCE, ORGANIC ORIGN 03/15/200112/2018 HYPERTENSION NOS 01/05/2009 Overview: Modified per HTN protocol #16. documented as of this encounter (statuses as of 06/19/2023) Immunizations Name Administration Dates Next Due COVID-19 mRNA, LNP-s, No Pre serve, 2-Dose Series ([employer]) 01/15/2021,05/28/2020,05/07/2020 Diptheria/Tetanus (Adult) 07/02/2006 Seasonal Influenza, PF, 6 M & above, IM , (FluLaval or Fluzone) 12/01/2020,12/03/2019 Seasonal Influenza, Split, I IV3, With Preserve, Inj 11/21/2008 Zoster Vaccine Recombinant (Shingrix) 02/09/2021 ,09/29/2020 documented as of this encounter Social History Tobacco Use Types Packs/Day Years Used Date Smoking Tobacco: Never Smokeless Tobacco: Current Snuff, Chew Comments:3 cans per week Alcohol Use Standard Drinks/Week Comments Yes 5.8 (1 standard drink = 0.6 oz p ure alcohol) PHQ-2 Answer Date Recorded PHQ Adult Total Score 0 09/29/2021 Hunger Vital Sign Answer Date Recorded Within the past 12 months, y ou worried that your food would run out before you got the money to buy more. Never true 09/30/19 22 Within the past 12 months, t he food you bought just didn't last and you didn't have money to get more. Never true 09/29/2021 Sex and Gender Information Value Date Recorded Sex Assigned at Male 06/20/2018 8:50 AM EDT Gender Identity Male 06/20/2018 8:50 AM EDT Sexual Orientation Straight 06/20/2018 8: 50 AM EDT Job Start Date Occupation Industry Not on file Not on file Not on file documented as of this encounter Plan of Treatment Upcoming Encounters Date Type Department Care Team (Late st Contact Info) Description 08/03/2023 11:20 AM EDT [facility] [place] [address] [facility] [phone] [facility] [address] [facility] [address] 10/03/2023 9:00 AM EDT [facility] [address] [facility] [phone] [facility] [address] [facility] [address] Scheduled Referrals Name Type Priority Associated Diagnoses Order Schedule ADULT GASTROENTEROLOGY REFERRAL OP Referral Within 10 days (routine) Gastroesophageal reflux disease without esophagitis Epigastric pain Ordered: 06/19/2023 Health Maintenance Due Date Last Done Comments HIV Screening 1973 Albumin/Creatinine Ratio 1976 Cologuard 2003 Colonoscopy 2003 Colorectal Cancer Screening 2003 Fecal Occult Blood Test 2003 Sigmoidoscopy 2003 DTaP,Tdap,and Td Vaccines (1 - Tdap) 07/03/2006 07/02/2006 Depression Screening 09/29/2022 09/29/2021 COVID-19 Vaccine (4 - 2022- season) 2022 01/15/2021, 05/28/2020, 05/07/2020 Pneumococcal Vaccine: 65+ Years (1 of 1 - PCV) 2023 GFR 09/03/2023 09/02/2022, 05/14, 09/24/2021, Additional history exists Influenza Vaccine (FLU shot) (Season Ended) 2023 12/28/2021, 12/01/2020, 12/03/2019, Additional history exists Diabetes Screening 09/02/2025 09/02/2022, 0 05/23/2022, 05/23/2022, Additional history exists Lipid Panel 09/03/2027 09/02/2022, 09/13, 09/23/2020, Additional history exists Zoster Vaccines Completed 02/09/2021, 09/29/2020 GARDASIL-HPV IMMUNIZATION SERIES Aged Out No longer eligible based on patient's age to complete this topic Hepatitis B Aged Out No longer eligi ble based on patient's age to complete this topic MENINGOCOCCAL (MENACTRA/MENVEO) Aged Out No longer eligible based on patient's age to complete this topic documented as of this encounter Medical Devices Not on filedocumented as of this encounter Visit Diagnoses Diagnosis Gastroesophageal reflux disease without esophagitis- Primary Esophageal reflux Epigastric pain Abdominal pain, epigastric documented in this encounter Care Teams Drill Press Set Up Operator Relationship Specialty Start Date End Date Ahsan Levy MD [address] [place] [id number] PCP - General Family Medicine 01/15/16 documented as of this encounter
--- OUTSIDE RECORDS SUMMARY | 2023-06-21 12:50 | External Medical Summary | Summary of Care ---
Author Name Unknown Organization [facility] Address [address] [place] [facility] [place] [address] Phone [phone] Care Team Providers Care Granite Setter Name Role Phone Ahsan Levy MD Primary Care Provider [phone]- [phone] Encounter Details Date Type Department Care Team (Late st Contact Info) Description 06/16/2023 Orders Only [facility] [address] [place] [address] Ahsan Levy MD [address] [place] [address] Allergies No known active allergiesdocumented as of this encounter (statuses as of 06/16/2023) Medications Medication Sig Dispensed Refills Start Date [...] as of this encounter (statuses as of 06/16/2023) Active Problems Problem Noted Date Diagnosed Date Erectile dysfunction 01/23/2019 Inguinal hernia of right danny e with obstruction and without gangrene 06/16/2017 Dyslipidemia, goal LDL below 100 01/18/2013 HTN, GOAL BELOW 140/90 01/01/2009 Overview: Modified per HTN protocol #16. documented as of this encounter (statuses as of 06/16/2023) Resolved Problems Problem Noted Date Diagnosed Date Resolved Date Elevated prostate specific antigen (PSA) 08/09/2011 12/09/2016 Dyslipidemia, goal to be determined 05/08/2001 01/18/2013 Esophageal reflux 03/15/2001 03/13/2019 Family history of malignant neoplasm of prostate 03/15/2001 06/16/2017 IMPOTENCE, ORGANIC ORIGN 03/15/200112/2018 HYPERTENSION NOS 01/05/2009 Overview: Modified per HTN protocol #16. documented as of this encounter (statuses as of 06/16/2023) Immunizations Name Administration Dates Next Due COVID-19 mRNA, LNP-s, No Pre serve, 2-Dose Series ([employer]) 01/15/2021,05/28/2020,05/07/2020 Diptheria/Tetanus (Adult) 07/02/2006 Seasonal Influenza, PF, [...] Description 08/03/2023 11:20 AM EDT Office Visit [place] [address] [place] [phone] Sheri Anna PA-C [address] [place] [address] 10/03/2023 9:00 AM EDT Office Visit [place] [address] [place] [phone] Ahsan Levy MD [address] [place] [address] Health Maintenance Due Date Last Done Comments HIV Screening 1973 Albumin/Creatinine Ratio 1976 Cologuard 2003 Colonoscopy 2003 Colorectal Cancer Screening 2003 Fecal Occult Blood Test 2003 Sigmoidoscopy 2003 DTaP,Tdap,and Td Vaccines (1 - Tdap) 07/03/2006 07/02/2006 Depression Screening 09/29/2022 09/29/2021 COVID-19 Vaccine (2022-24 season) 2022 01/15/2021, 05/28/2020, 05/07/2020 Pneumococcal Vaccine: [...] Not on filedocumented as of this encounter Procedures Procedure Name Priority Date/Time Associated Diagnosis Comments UPPER ENDOSCOPY, OUTSIDE PROCEDURE Routine 06/15/2023 documented in this encounter Results * UPPER ENDOSCOPY, OUTSIDE PROCEDURE (06/15/2023) 06/15/2023 History Per Patient GASTRO UPPER OUTSIDE LAB (SEE SCANNED REPORT) documented in this encounter Care Teams Granite Setter Relationship Specialty Start Date End Date Ahsan Levy MD [address] [place], [place] [phone] PCP - General Family Medicine 01/15/16 documented as of this encounter
--- NOTE | 2023-06-21 12:54 | XRay Report ---
XR chest 1V not portable CLINICAL HISTORY: Chest pain, nonspecific TECHNIQUE: Single frontal radiograph of the chest was obtained. Comparison: Comparison is made to chest radiograph 03/04/2016 FINDINGS: No lines and tubes are seen. The cardiomediastinal silhouette is normal. The lungs are clear. No evid ence of pleural effusion or pneumothorax. IMPRESSION: No acute chest disease. ACT 112: Negative or not required by law. Electronically signed by: Arthur Shepherd M.D. 06/21/2023 12:53 PM
[2023-06-21 13:15] LABS: Albumin Globulin Ratio 1.5 (0.9-2); Albumin Level 4.6 gm/dl (3.4-5.0); BUN Creatinine Ratio 14.3 (10-20); Bilirubin,Total 0.7 mg/dl (0.2-1.0); Creatinine Clr Calc Pharmacy 72.4 ml/min; Est GFR (African American) 85.9 ml/min; Est GFR (Non-African American) 74.1 ml/min; Total Protein 7.6 gm/dl (6.0-8.3)
[2023-06-21 13:30] LABS: Troponin I High Sensitivity 314.3 pg/ml (0-20)
[2023-06-21] MEDS: OPTIRAY 320 100ml IV ONE (13:46)
--- NOTE | 2023-06-21 14:05 | Emergency Department Note ---
Impression & Plan Precordial chest pain, Hypertension, Elevated troponin ED Provider Note NAME: ANIL ESTEBAN AGE: 63 SEX: M : 1960 ARRIVES VIA: Walk-In INFORMANT: [Patient][family] ED PROVIDER(S): [Brendan Weaver MD] CHIEF COMPLAINT: Chest pain HISTORY OF PRESENT ILLNESS: The patient is a 63-year-old male who presents with 3 weeks of central chest pain. The pain is like a burning sensation. It seems worse when he is flat and often when he exercises or walks. Its better to sit forward and better to rest. He feels short of breath and nauseated with the pain, no sweating. The patient was using antacids which seemed to help but they are no longer working. The patient did go and see GI, he had an endoscopy that showed a hiatal hernia as well as some gastritis, biopsies were negative. He was at the GI office today and given his ongoing symptoms and complaints, he was referred to the ER. The patient has not taken his aspirin in about a month because of his discomfort. He does take medication for blood pressure. The patient had an episode of discomfort in the ED waiting area and was brought back to be seen emergently. He looked uncomfortable but appeared to have a sinus rhythm on the monitor with PVCs. There was no diaphoresis. He was hypertensive. PMHx/PSHx/Social Hx: See Below PHYSICAL EXAM: GENERAL: Patient is in mild distress from pain. HEENT: No acute trauma, normocephalic atraumatic, mucous membranes moist, no nasal congestion. NECK: No stridor, no adenopathy, no meningismus, trachea is midline. LUNGS: Clear to auscultation bilaterally, no wheeze, no rhonchi, breath sounds equal. HEART: Without murmurs gallops or rubs, regular rate and rhythm. ABDOMEN: Soft, nontender, no peritonitis. EXTREMITIES: No cyanosis, full range of motion of all the joints without pain or difficulty. NEUROLOGIC: Oriented x 3, no acute motor or sensory deficits, no focal weakness. SKIN: No jaundice, no diaphoresis. DIFFERENTIAL DIAGNOSIS: Angina, MS, gastritis, pericarditis, aortic dissection, reflux, among others. EMERGENCY DEPARTMENT PROCEDURES: MEDICAL DECISION MAKING: There is no leukocytosis or concerning anemia. There is a normal platelet count. No coagulopathy. No renal failure or significant electrolyte abnormality. No concerning liver enzyme elevation. No evidence for pancreatitis. ECG shows a sinus bradycardia with LVH, no ST elevation. Repeat ECG shows similar findings. Cardiac troponin was somewhat elevated. This elevation could be secondary to cardiac injury or potentially just mismatch from his hypertension. Chest x-ray did not show mediastinal widening, pneumonia or pneumothorax. Abdominal and pelvis CT was essentially unremarkable for any emergent process. Gallstones were noted. Chest CT did not show dissection or PE. I was called to see the patient emergently as he was having a bout of chest discomfort. Patient was ordered for a 500 cc saline bolus, 4 mg of Zofran IV, 2 inches a nitroglycerin paste, 2 mg of IV morphine. He was ordered for 20 mg of IV Pepcid and 4 baby aspirin. The patient seems improved with the above treatment. He is much more comfortable. At this point, further workup in the hospital is warranted. Further cardiac workup is warranted. I am concerned about his discomfort as well as the troponin elevation. I did speak with the patient and case management, the on-call hospitalist was consulted. Prior/Outside records/notes reviewed: Today's GI note describing his presentation, his endoscopy results and the plan to refer to the ED. ECG per my interpretation: Indication was chest pain. The ECG shows a sinus bradycardia with a rate of 59. LVH was present. There was no acute ST elevation, no PVCs. The QTc was 399. Repeat ECG per my interpretation: Indication was chest pain. The ECG shows a sinus rhythm with a PVC. The rate was 70. There was some nonspecific ST change, there was no acute ST elevation. The QTc was 442. Continuous Cardiac Monitoring per my interpretation: An order was placed for continuous cardiac monitoring. The monitor shows a rate of 91 with sinus rhythm with PVCs. Imaging/x-ray results per my interpretation: Chest x-ray does not show mediastinal widening, pneumonia or pneumothorax. Chronic Medical/Social conditions affecting care: Care/Management discussed with: Case management and the on-call hospitalist. Level of care consideration(s): After review of the information above and other included data: --I believe the patient requires escalation of care to admission Critical Care Note: I have personally spent 41 minutes of critical care time in the direct management of this patient. This includes bedside care, interpretation of diagnostic studies, and testing, discussion with consultants, patient, and family members, and other required patient management activities. This 41 minutes is in excess of all separately billable procedures. DISPOSITION: Admission with cardiology workup Past Med/Surg History Medical History GERD (gastroesophageal reflux disease) Dyslipidemia HTN (hypertension) Surgical History (Updated 06/21/23 @ 16:26 by Sujit Downs PA-C) Hx of cardiac catheterization ~2017-chest pain, no stents - at [facility], does not follow w/ cardio Hx of sinus surgery Hx of lumpectomy from leg Family History Other No family history of adverse response to anesthesia Social History Smoking Status: Never smoker Tobacco Type: Smokeless Tobacco (Dip or Chew) Second Hand Exposure: No; Do You Dip or Chew Tobacco: Yes (advised); Hx Alcohol Use: Yes Alcohol type: beer Hx Substance Use: No Preferred Language: Urdu Communication Ability: Effective Dental Intern Required: No Beliefs That Will Affect Care: None Current Living Situation: Spouse Feels Safe at Home: Yes Assistive Devices: Glasses Allergies Allergies Allergy/AdvReac Type Severity Reaction Status Date / Time No Known Allergies Allergy Mild Unverified 06/21/23 10:51 Home Meds Previous Rx's Medication Instructions Recorded aspirin 81 mg tablet,delayed 81 mg PO DAILY #30 tabs 06/06/23 release (Howard Low Dose Aspirin) famotidine 40 mg tablet 40 mg PO DAILY PRN gerd #30 tabs 06/06/23 lisinopril 10 mg tablet 10 mg PO DAILY #30 tabs 06/06/23 pantoprazole 40 mg tablet,delayed 40 mg PO DAILY #30 tabs 06/06/23 release hydrochlorothiazide 12.5 mg capsule 12.5 mg PO DAILY #30 caps 06/08/23 sildenafil (pulm.hypertension) 20 20 mg PO TID PRN sexual activity 06/08/23 mg tablet #90 tabs Results & Data (ED) Vital Signs Vital Signs - 24 hr 06/21/23 11:55 06/21/23 14:26 06/21/23 14:26 Temperature 36.8 C Temperature Source Temporal Artery Scan Pulse Rate 66 61 59 L Pulse Rate from SpO2 Sensor 60 Respiratory Rate 18 18 Respiratory Effort / Characteristics Non-Labored Respiratory Depth Normal Blood Pressure 128/89 Blood Pressure Mean 102 Pulse Oximetry 98 97 Oxygen Delivery Method Room Air Sepsis Recent Fever Within 48 Hours No Sepsis New/Unexplained Change in Mental Status N/A Sepsis Action Taken by Nursing No Action Required 06/21/23 14:30 06/21/23 14:30 06/21/23 14:31 Temperature Temperature Source Pulse Rate 58 L 59 L Pulse Rate from SpO2 Sensor 56 L 56 L Respiratory Rate 9 L 16 Respiratory Effort / Characteristics Respiratory Depth Blood Pressure 142/87 H Blood Pressure Mean 114 Pulse Oximetry 95 96 Oxygen Delivery Method Sepsis Recent Fever Within 48 Hours Sepsis New/Unexplained Change in Mental Status Sepsis Action Taken by Nursing 06/21/23 14:31 06/21/23 14:50 06/21/23 14:50 Temperature Temperature Source Pulse Rate 61 Pulse Rate from SpO2 Sensor 62 Respiratory Rate 11 L Respiratory Effort / Characteristics Respiratory Depth Blood Pressure 144/95 H 149/94 H Blood Pressure Mean 100 112 Pulse Oximetry 97 Oxygen Delivery Method Sepsis Recent Fever Within 48 Hours Sepsis New/Unexplained Change in Mental Status Sepsis Action Taken by Nursing 06/21/23 15:00 06/21/23 15:00 06/21/23 15:30 Temperature Temperature Source Pulse Rate 59 L 60 Pulse Rate from SpO2 Sensor 59 L 60 Respiratory Rate 19 15 Respiratory Effort / Characteristics Respiratory Depth Blood Pressure 139/90 Blood Pressure Mean 98 Pulse Oximetry 95 95 Oxygen Delivery Method Sepsis Recent Fever Within 48 Hours Sepsis New/Unexplained Change in Mental Status Sepsis Action Taken by Nursing 06/21/23 15:30 06/21/23 16:00 06/21/23 16:00 Temperature Temperature Source Pulse Rate 67 Pulse Rate from SpO2 Sensor 69 Respiratory Rate 19 Respiratory Effort / Characteristics Respiratory Depth Blood Pressure 128/83 122/85 Blood Pressure Mean 89 100 Pulse Oximetry 95 Oxygen Delivery Method Sepsis Recent Fever Within 48 Hours Sepsis New/Unexplained Change in Mental Status Sepsis Action Taken by Residential Medications Current Medication List: was personally reviewed by me Laboratory Data Attestation: I reviewed the patient's lab results. 06/21/23 12:05 06/21/23 12:05 Lab Results 06/21/23 06/21/23 Range/Units 12:05 14:10 WBC 6.70 (4.8-10.8) K/ul RBC 5.53 (4.70-6.10) M/uL Hgb 17.1 (14.0-18.0) g/dl Hct 50.7 (42.0-52.0) % MCV 91.7 (80.0-100.0) fL MCH 30.9 (25.0-34.0) pg MCHC 33.7 (32.0-36.0) g/dL RDW Std Deviation 45.8 (36.4-46.3) fL RDW Coeff of Jes 13.5 (11.5-14.5) % Plt Count 238 (130-400) K/uL MPV 10.5 (9.4-12.4) fL Immature Gran % (Auto) 0.3 % Neut % (Auto) 70.7 % Lymph % (Auto) 14.8 % [place] % (Auto) 9.4 % Eos % (Auto) 4.2 % Baso % (Auto) 0.6 % Neut # (Auto) 4.74 (1.40-6.50) K/uL Lymph # (Auto) 0.99 L (1.20-3.40) K/uL [place] # (Auto) 0.63 H (0.11-0.59) K/uL Eos # (Auto) 0.28 (0.00-0.50) K/uL Baso # (Auto) 0.04 (0.00-0.20) K/uL Immature Gran # (Auto) 0.02 (0.01-0.20) K/uL PT 10.9 (9.0-12.0) Seconds INR 1.0 (0.9-1.1) APTT 31 (21-31) Seconds PTT Ratio 1.2 Sodium 139 (136-145) mmol/L Potassium 4.0 (3.5-5.1) mmol/L Chloride 102 (98-107) mmol/L Carbon Dioxide 30 (21-32) mmol/L Anion Gap 7 (3-11) BUN 15 (6-23) mg/dl Creatinine 1.05 (0.6-1.4) mg/dl Est Cr Clr Drug Dosing 72.4 ml/min Est GFR ( Amer) 85.9 ml/min Est GFR (Non-Af Amer) 74.1 ml/min BUN/Creatinine Ratio 14.3 (10-20) Glucose 90 (70-99(Fasting)) mg/dl Calcium 10.0 (8.6-10.3) mg/dl Magnesium 1.9 (1.7-2.4) mg/dl Total Bilirubin 0.7 (0.2-1.0) mg/dl AST 16 (13-39) U/L ALT 17 (7-52) U/L Alkaline Phosphatase 98 (34-104) U/L Troponin I High Sens 314.3 H* 311.3 H* (0-20) pg/ml Total Protein 7.6 (6.0-8.3) gm/dl Albumin 4.6 (3.4-5.0) gm/dl Globulin 3.0 (2.5-4.0) gm/dl Albumin/Globulin Ratio 1.5 (0.9-2) Lipase 16 (11-82) U/L Administered Medications Heparin Sodium/Dextrose (Heparin Sodium/Dextrose) 25,000 units in 500 mls @ 18 mls/hr IV .Q24H WILLIAM; Protocol Stop: 07/21/23 16:29 Last Admin: 06/21/23 17:09 Dose: 900 units/hr, 18 mls/hr Documented By: ROM Co-signed By: LIBIA Magnesium Sulfate/Dextrose (Magnesium Sulfate / D5w) 1 gm in 100 mls @ 50 mls/hr IV ONE ONE Stop: 06/21/23 22:13 Last Admin: 06/21/23 20:47 Dose: 50 mls/hr Documented By: ROBERT Discontinued Medications Aspirin (Aspirin Chew 324 Mg) 324 mg PO NOW STA Stop: 06/21/23 14:01 Last Admin: 06/21/23 14:08 Dose: 324 mg Documented By: ROM Aspirin (Aspirin 81 Mg Chew) Confirm Administered Dose 324 mg .ROUTE .STK-MED ONE Stop: 06/21/23 14:06 Last Admin: 06/21/23 14:17 Dose: Not Given Documented By: ROM Heparin Sodium (Porcine) (Heparin Sod (Porcine) 1000 Unit/Ml) 4,000 units IV NOW ONE Stop: 06/21/23 16:22 Last Admin: 06/21/23 17:08 Dose: 4,000 units Documented By: ROM Co-signed By: LIBIA Heparin Sodium/Dextrose (Heparin Iv Adult Wt-Based Low-Dose W/ Initial Bolus Protocol) 1 each IV NOW STA; Protocol Stop: 06/21/23 16:06 Last Admin: 06/21/23 19:07 Dose: Not Given Documented By: ROM Famotidine (Pepcid 20mg Iv Push) 20 mg in 5 mls @ 2.5 mls/min IV NOW STA Stop: 06/21/23 14:04 Last Admin: 06/21/23 16:23 Dose: 2.5 mls/min Documented By: ROM Sodium Chloride (Nss) 500 mls @ 999 mls/hr IV .Q31M ONE Stop: 06/21/23 14:33 Last Infusion: 06/21/23 16:27 Dose: Infused Documented By: Admin: 06/21/23 14:20 Dose: 999 mls/hr Documented By: ORM Ioversol (Optiray 320 100ml) 94 ml IV ONCE ONE Stop: 06/21/23 13:47 Last Admin: 06/21/23 13:46 Dose: 94 ml Documented By: ISREAL Ioversol (Optiray 320 125ml) 119 ml IV ONCE ONE Stop: 06/21/23 14:50 Last Admin: 06/21/23 14:49 Dose: 119 ml Documented By: GUSTABO Morphine Sulfate (Morphine Sulfate 2 Mg/Ml Carp) 2 mg IV NOW STA Stop: 06/21/23 14:01 Last Admin: 06/21/23 14:16 Dose: Not Given Documented By: ROM Morphine Sulfate (Morphine Sulfate 4 Mg/Ml 1 Ml Carp\Vial) Confirm Administered Dose 4 mg .ROUTE .STK-MED ONE Stop: 06/21/23 14:04 Last Admin: 06/21/23 14:13 Dose: 4 mg Documented By: ROM Nitroglycerin (Nitroglycerin 2% Ointment 30gm Tube) 2 inch EXT NOW STA Stop: 06/21/23 14:01 Last Admin: 06/21/23 14:16 Dose: 2 inch Documented By: ROM Ondansetron HCl (Ondansetron Inj 2 Mg/Ml 2 Ml Vial) 4 mg IV NOW STA Stop: 06/21/23 14:01 Last Admin: 06/21/23 14:10 Dose: 4 mg Documented By: ROM Imaging Data Radiologist's Impression: Chest X-Ray 06/21/23 11:59 XR chest 1V not portable CLINICAL HISTORY: Chest pain, nonspecific TECHNIQUE: Single frontal radiograph of the chest was obtained. Comparison: Comparison is made to chest radiograph 03/04/2016 FINDINGS: No lines and tubes are seen. The cardiomediastinal silhouette is normal. The lungs are clear. No evidence of pleural effusion or pneumothorax. IMPRESSION: No acute chest disease. ACT 112: Negative or not required by law. Electronically signed by: Arthur Shepherd M.D. 06/21/2023 12:53 PM Abdomen/Pelvis CT 06/21/23 12:[address] WITH IV CONTRAST CT DOSE: 911.88 mGy.cm HISTORY: Generalized abdominal pain. TECHNIQUE: Multiaxial CT images of the abdomen and pelvis were performed following the use of intravenous contrast. A dose lowering technique was utilized adhering to the principles of ALARA. COMPARISON STUDY: None. FINDINGS: There are few punctate calcified granulomas within the left lower lobe. No pneumoperitoneum. No pneumatosis. No acute fractures. Mild aneurysmal dilatation of the ascending thoracic aorta measuring up to 4 cm in diameter. Small fat-containing bilateral inguinal hernias. There are few punctate gallstones. No gallbladder wall thickening. A few small hypodensities within the liver favor cysts. The main portal vein is patent. The pancreas, spleen, adrenal glands, and kidneys are unremarkable. Normal kidneys. No hydronephrosis. The main portal vein is patent. There is a left-sided IVC noted. Normal caliber abdominal aorta. No retroperitoneal or pelvic lymphadenopathy. No pelvic free fluid. Mild bladder wall thickening is likely due to chronic outlet obstruction from the enlarged prostate gland. Colonic diverticulosis. No evidence for acute diverticulitis. No bowel wall thickening or obstruction. Normal appendix. IMPRESSION: 1. No bowel wall thickening or obstruction. 2. Normal appendix. 3. Cholelithiasis. No gallbladder wall thickening. 4. Bladder wall thickening. This is likely due to chronic outlet obstruction from the enlarged prostate gland. 5. Additional findings as described above. ACT 112: Negative or not required by law. Electronically signed by: Sujit Caputo M.D. 06/21/2023 2:10 PM Chest CTA 06/21/23 14:03 CT ANGIOGRAPHY OF THE CHEST DISSECTION PROTOCOL CLINICAL HISTORY: Chest pain. Evaluate for dissection. COMPARISON STUDY: Chest CT March 04, 2016. Chest radiograph performed earlier today. TECHNIQUE: Before and following the IV administration of 119 mL of Optiray, helical axial images of the chest were obtained. Maximal intensity projections and sagittal and coronal reformats were viewed on an independent 3D workstation. IV contrast was administered without complication. Automated exposure control was utilized for the study. A dose lowering technique was utilized adhering to the principles of ALARA. CT DOSE: 1002.94 mGy.cm FINDINGS: The caliber of the thoracic aorta Estela limits of normal. There is no thoracic aortic dissection or intramural hematoma. No pulmonary emboli are identified. There is no pericardial effusion. Size of the heart is at the upper limits of normal. There is no consolidation to suggest pneumonia. A few small pulmonary nodules measuring up to 4 mm are unchanged. There is no pneumothorax or pleural effusion. Several hepatic cysts are again noted. IMPRESSION: 1. No thoracic aortic dissection. 2. No acute intrathoracic findings. ACT 112: Negative or not required by law. Electronically signed by: Alejandro Biswas M.D. 06/21/2023 3:11 PM Discharge Plan Visit Data Chief Complaint: Chest Pain Stated Complaint: CHEST PAIN, REF BY DOC ED Provider: Brendan Weaver Discharge Problem: Precordial chest pain, Hypertension, Elevated troponin Patient Disposition: Admitted As Inpatient Condition: Fair Discharge Instructions Interventions: ED Discharge Assessment Last Done: 06/21/23 18:43 Discharge Problem: Hypertension Qualifiers: Hypertension type: unspecified Qualified Code(s): I10 - Essential (primary) hypertension
[2023-06-21] MEDS: ASPIRIN CHEW 324 MG PO STA (14:08)
[2023-06-21] MEDS: ONDANSETRON INJ 2 MG/ML 2 ML VIAL IV STA (14:10)
--- NOTE | 2023-06-21 14:11 | CT Scan Report ---
ABDOMEN AND PELVIS CT WITH IV CONTRAST CT DOSE: 911.88 mGy.cm HISTORY: Generalized abdominal pain. TECHNIQUE: Multiaxial CT images of the abdomen and pelvis were performed following the use of intrave nous contrast. A dose lowering technique was utilized adhering to the principles of ALARA. COMPARISON STUDY: None. FINDINGS: There are few punctate calcified granulomas within the left lower lobe. No pneumoperitoneum . No pneumatosis. No acute fractures. Mild aneurysmal dilatation of the ascending thoracic aorta carmela uring up to 4 cm in diameter. Small fat-containing bilateral inguinal hernias. There are few punctate gallstones. No gallbladder wall thickening. A few small hypodensities within the liver favor cysts. The main portal vein is patent. The pancreas, spleen, adrenal glands, and kidneys are unremarkable. N ormal kidneys. No hydronephrosis. The main portal vein is patent. There is a left-sided IVC noted. No rmal caliber abdominal aorta. No retroperitoneal or pelvic lymphadenopathy. No pelvic free fluid. Mil d bladder wall thickening is likely due to chronic outlet obstruction from the enlarged prostate glan d. Colonic diverticulosis. No evidence for acute diverticulitis. No bowel wall thickening or obstruct ion. Normal appendix. IMPRESSION: 1. No bowel wall thickening or obstruction. 2. Normal appendix. 3. Cholelithiasis. No gallbladder wall thickening. 4. Bladder wall thickening. This is likely due to chronic outlet obstruction from the enlarged prosta te gland. 5. Additional findings as described above. ACT 112: Negative or not required by law. Electronically signed by: Sujit Caputo M.D. 06/21/2023 2:10 PM
[2023-06-21] MEDS: MoRPHine SULFATE 4 MG/ML 1 ML CARP\\VIAL ONE (14:13)
[2023-06-21] MEDS: NITROGLYCERIN 2% OINTMENT 30GM TUBE EXT STA (14:16)
[2023-06-21] MEDS: MoRPHine SULFATE 2 MG/ML CARP IV STA (14:16)
[2023-06-21] MEDS: ASPIRIN 81 MG CHEW ONE (14:17)
[2023-06-21] MEDS: SODIUM CHLORIDE 0.9% 500 ML IV ONE (14:20)
[2023-06-21 14:38] LABS: Partial Thromboplastin Ratio 1.2; Partial Thromboplastin Time 31 Seconds (21-31); Prothrombin Time 10.9 Seconds (9.0-12.0)
[2023-06-21] MEDS: OPTIRAY 320 125ml IV ONE (14:49)
[2023-06-21 14:54] LABS: Troponin I High Sensitivity 311.3 pg/ml (0-20)
--- NOTE | 2023-06-21 15:13 | CT Scan Report ---
CT ANGIOGRAPHY OF THE CHEST DISSECTION PROTOCOL CLINICAL HISTORY: Chest pain. Evaluate for dissection. COMPARISON STUDY: Chest CT March 04, 2016. Chest radiograph performed earlier today. TECHNIQUE: Before and following the IV administration of 119 mL of Optiray, helical axial images of t he chest were obtained. Maximal intensity projections and sagittal and coronal reformats were viewed on an independent 3D workstation. IV contrast was administered without complication. Automated exp osure control was utilized for the study. A dose lowering technique was utilized adhering to the juni Berger. CT DOSE: 1002.94 mGy.cm FINDINGS: The caliber of the thoracic aorta Estela limits of normal. There is no thoracic aortic dissection or intramural hematoma. No pulmonary emboli are identified. There is no pericardial effusi on. Size of the heart is at the upper limits of normal. There is no consolidation to suggest pneumoni a. A few small pulmonary nodules measuring up to 4 mm are unchanged. There is no pneumothorax or pleu ral effusion. Several hepatic cysts are again noted. IMPRESSION: 1. No thoracic aortic dissection. 2. No acute intrathoracic findings. ACT 112: Negative or not required by law. Electronically signed by: Alejandro Biswas M.D. 06/21/2023 3:11 PM
--- NOTE | 2023-06-21 15:31 | History & Physical Report ---
Date of Service June 21, 2023 Assessment & Plan (1) NSTEMI (non-ST elevated myocardial infarction): Plan: Exertional chest pain and epigastric pain x 3 weeks, with an acute worsening on 06/20 Patient noted an episode of chest pain at rest while in the ED ? Progression of exertional angina Elevated troponin at 314-->311 on arrival; will trend q6h EKG on arrival revealed sinus bradycardia at 59 bpm; QTc 399; no major changes from last EKG Chest CTA revealed no acute aortic dissection or pulmonary emboli Echocardiogram ordered, pending Will consider adding beta-do pending results ASA 324 mg and Nitro-Bid paste given in ED Patient is chest pain-free at time of admission Heparin IV low-dose with bolus Nitro SL as needed for acute angina Nitro-bid 2% q6h PRN for acute angina Continue aspirin 81 mg daily Continuous telemetry monitoring EKG as needed for chest pain Cardiology consulted A.m. CBC, BMP, mag, fasting lipid panel (2) Dyslipidemia: Plan: Patient is not currently on a statin He has trialed statins in the past (such as Crestor and Zetia), but has struggled with statin intolerance/myalgias/joint pain Follow a.m. fasting lipid panel (3) GERD (gastroesophageal reflux disease): Plan: Continue pantoprazole Famotidine as needed --> Famotidine 40mg p.o. daily (4) HTN (hypertension): Plan: Continue lisinopril, HCTZ (5) Hx of cardiac catheterization: Plan: 2017-chest pain, no stents at [facility] (6) Chest pain: Plan Disposition: Admit to PCU telemetry Full code AHA diet VTE PPx: Heparin IV low-dose bolus History of Present Illness Chief Complaint: Chest pain Primary Care Provider: Ahsan Levy MD Boris is a 63-year-old male with PMH of HTN, dyslipidemia, hiatal hernia, and GERD. Patient presents for chest pain and epigastric pain x 3 weeks, with an acute worsening today. Pain is located substernally, but he notes it is also generalized across the chest and radiates up to his neck and jaw bilaterally. No radiation between the joint shoulder blades. The pain comes on admittedly and last 30 seconds to 2 minutes at a time. He describes it as a burning sensation that he rates as 10/10 at its worst. Sitting down and placing ice on his chest alleviates the pain. Patient reports that the pain usually comes on whenever he bends over, kneels down, exerts himself walking, or after eating. Nitro does alleviate the pain. He has been taking Tylenol at home for the pain, but nothing else. Of note, he stopped taking his aspirin 5 days ago as he thought it might be stomach/GERD related and that the aspirin might be worsening the pain. No prior IA. Hx of cardiac catheterization 5 years ago; he was exhibiting "needlelike" pain at this time around his heart; however, he reports that his current pain feels very different than what it was back then; it is a hot burning pain now, whereas before it was "needlelike". Patient had an EGD on 06/12, and reports that it did reveal gastritis. He has not been eating much recently, and his reports that he last lost 7 pounds over the past week. Patient does have chest pain at rest, which was present when he arrived in the ED; he rated it 3/10 after initial treatments and described it as a "light burning" pain. Upon reassessment, patient is chest pain-free at time of admission. Patient took all of his regular morning medications except for aspirin. Recent change medications include changing from lansoprazole to Protonix. He denies smoking, tobacco use, recreational drug use, or recent alcohol use. He does chew snuff tobacco, but quit last week as he noticed that chewing snuff exacerbated his chest pain. Prior to this, he has been chewing tobacco for 52 years. He has not been on heparin in the past, but denies history of GI bleeds, bleeding disorders, or drug allergies to his knowledge. Patient's vitals are stable at time of admission. ED course: Aspirin 324 mg Nitroglycerin 2% paste Zofran 4 mg IV NSS 500 mL IV ROS: Patient endorses LOPEZ, intermittent chest pain both at rest and with exertion, epigastric pain, nausea, diarrhea x 2 weeks (on antacid; resolved), and 1 episode of BRB in stool 2mo ago (resolved; patient believes he may have been secondary to something he ate). Patient denies fever, chills, night-sweats, SOB, chest palpitations, cough, vomiting, burning with urination, blood in urine, or numbness/tingling in arms or legs. Allergies Allergy/AdvReac Type Severity Reaction Status Date / Time No Known Allergies Allergy Mild Unverified 06/21/23 10:51 Home Medications Medication Instructions Recorded Confirmed Type aspirin 81 mg tablet,delayed 81 mg PO DAILY #30 tabs 06/06/23 06/21/23 Rx release ([facility] Low Dose Aspirin) famotidine 40 mg tablet 40 mg PO DAILY PRN gerd #30 tabs 06/06/23 06/21/23 Rx lisinopril 10 mg tablet 10 mg PO DAILY #30 tabs 06/06/23 06/21/23 Rx pantoprazole 40 mg tablet,delayed 40 mg PO DAILY #30 tabs 06/06/23 06/21/23 Rx release hydrochlorothiazide 12.5 mg capsule 12.5 mg PO DAILY #30 caps 06/08/23 06/21/23 Rx sildenafil (pulm.hypertension) 20 20 mg PO TID PRN sexual activity 06/08/23 06/21/23 Rx mg tablet #90 tabs Past Med/Surg History Medical History (Updated 06/21/23 @ 16:27 by Sujit Downs PA-C) GERD (gastroesophageal reflux disease) Dyslipidemia HTN (hypertension) Surgical History (Updated 06/21/23 @ 16:26 by Sujit Downs PA-C) Hx of cardiac catheterization ~2017-chest pain, no stents - at [facility], does not follow w/ cardio Hx of sinus surgery Hx of lumpectomy from leg Family History Other No family history of adverse response to anesthesia Social History Smoking Status: Never smoker Tobacco Type: Smokeless Tobacco (Dip or Chew) Second Hand Exposure: No; Do You Dip or Chew Tobacco: Yes (advised); Hx Alcohol Use: Yes Alcohol type: beer Hx Substance Use: No Preferred Language: Irish Communication Ability: Effective Sport Intern Required: No Beliefs That Will Affect Care: None Current Living Situation: Spouse Feels Safe at Home: Yes Assistive Devices: Glasses Review of Systems Review of Systems: See HPI above Physical Exam Physical Exam: General: no acute distress; pleasant affect; non-toxic appearing; well- nourished; cooperative; SpO2 98% on RA HEENT: normocephalic, atraumatic; no scleral icterus; PERRLA; moist mucus membrane; vision and hearing grossly intact Neck: supple; no lymphadenopathy; trachea midline Skin: warm, dry without signs of tenting; no cyanosis; no rashes, bruising, lesions, or erythema noted CV: chest wall NTP; chest pain is not reproducible to palpation; RRR; S1/S2 normal; no murmurs/rubs/gallops; pulses intact and symmetric at radial, DP, and PT Lungs: no acute respiratory distress; symmetrical chest wall expansion; clear breath sounds across all lung juan w/o adventitious sounds; no wheezing ABD: Soft, NTP; BS present; no rebound/guarding; no distention MSK: no tics or fasciculations; no edema noted in the LEs b/l, nonerythematous Neuro: A&Ox3; normal mood and affect; fluent speech; no focal deficits; sensation grossly intact in the LEs b/l Results & Data Results & Data Vital Signs (Past 12 Hours) Vital Signs Temp Pulse Resp BP Pulse Ox O2 Del Method 06/21/23 14:26 61 06/21/23 11:55 36.8 C 66 18 128/89 98 Room Air Laboratory Results Abnormal lab results 06/21/23 06/21/23 Range/Units 12:05 14:10 Lymph # (Auto) 0.99 L (1.20-3.40) K/uL Crowley # (Auto) 0.63 H (0.11-0.59) K/uL Troponin I High Sens 314.3 H* 311.3 H* (0-20) pg/ml Diagnostic Findings Chest X-Ray 06/21/23 11:59 XR chest 1V not portable CLINICAL HISTORY: Chest pain, nonspecific TECHNIQUE: Single frontal radiograph of the chest was obtained. Comparison: Comparison is made to chest radiograph 03/04/2016 FINDINGS: No lines and tubes are seen. The cardiomediastinal silhouette is normal. The lungs are clear. No evidence of pleural effusion or pneumothorax. IMPRESSION: No acute chest disease. ACT 112: Negative or not required by law. Electronically signed by: Arthur Shepherd M.D. 06/21/2023 12:53 PM Abdomen/Pelvis CT 06/21/23 12:[address] WITH IV CONTRAST CT DOSE: 911.88 mGy.cm HISTORY: Generalized abdominal pain. TECHNIQUE: Multiaxial CT images of the abdomen and pelvis were performed following the use of intravenous contrast. A dose lowering technique was utilized adhering to the principles of ALARA. COMPARISON STUDY: None. FINDINGS: There are few punctate calcified granulomas within the left lower lobe. No pneumoperitoneum. No pneumatosis. No acute fractures. Mild aneurysmal dilatation of the ascending thoracic aorta measuring up to 4 cm in diameter. Small fat-containing bilateral inguinal hernias. There are few punctate gallstones. No gallbladder wall thickening. A few small hypodensities within the liver favor cysts. The main portal vein is patent. The pancreas, spleen, adrenal glands, and kidneys are unremarkable. Normal kidneys. No hydronephrosis. The main portal vein is patent. There is a left-sided IVC noted. Normal caliber a bdominal aorta. No retroperitoneal or pelvic lymphadenopathy. No pelvic free fluid. Mild bladder wall thickening is likely due to chronic outlet obstruction from the enlarged prostate gland. Colonic diverticulosis. No evidence for acute diverticulitis. No bowel wall thickening or obstruction. Normal appendix. IMPRESSION: 1. No bowel wall thickening or obstruction. 2. Normal appendix. 3. Cholelithiasis. No gallbladder wall thickening. 4. Bladder wall thickening. This is likely due to chronic outlet obstruction from the enlarged prostate gland. 5. Additional findings as described above. ACT 112: Negative or not required by law. Electronically signed by: Sujit Caputo M.D. 06/21/2023 2:10 PM Chest CTA 06/21/23 14:03 CT ANGIOGRAPHY OF THE CHEST DISSECTION PROTOCOL CLINICAL HISTORY: Chest pain. Evaluate for dissection. COMPARISON STUDY: Chest CT March 04, 2016. Chest radiograph performed earlier today. TECHNIQUE: Before and following the IV administration of 119 mL of Optiray, helical axial images of the chest were obtained. Maximal intensity projections and sagittal and coronal reformats were viewed on an independent 3D workstation. IV contrast was administered without complication. Automated exposure control was utilized for the study. A dose lowering technique was utilized adhering to the principles of ALARA. CT DOSE: 1002.94 mGy.cm FINDINGS: The caliber of the thoracic aorta Estela limits of normal. There is no thoracic aortic dissection or intramural hematoma. No pulmonary emboli are identified. There is no pericardial effusion. Size of the heart is at the upper limits of normal. There is no consolidation to suggest pneumonia. A few small pulmonary nodules measuring up to 4 mm are unchanged. There is no pneumothorax or pleural effusion. Several hepatic cysts are again noted. IMPRESSION: 1. No thoracic aortic dissection. 2. No acute intrathoracic findings. ACT 112: Negative or not required by law. Electronically signed by: Alejandro Biswas M.D. 06/21/2023 3:11 PM ECG Additional Comments: ECG revealed sinus bradycardia at 59 bpm; QTc 399 Code Status & VTE Plan Code Status Full code VTE Prophylaxis Plan VTE Prophylaxis will be ordered: Yes Supervising Physician Co-Signing Physician Notes Patient seen and examined, chart reviewed, case discussed with Sujit Downs and I agree with the assessment and plan as above except as otherwise noted Labs and images reviewed 63-year-old male with a prior normal cath 5 years ago who presents with worsening burning chest pain on exertion. He notes that this is different in quality from his prior pain that led to a cath and extends up to his neck, seems to be reproduced when he walks even a few feet. He has not had shortness of breath or sweating with these episodes. Does have a history of GERD and a hiatal hernia, had an EGD which did show gastritis and the hernia however he feels that Protonix, GI cocktail, and Pepcid have not really changed his pain. Additionally has a elevated but stable troponin at 311/314 on admission. Pat ient given Nitropaste, aspirin, did receive morphine in the ER. On subsequent reevaluation patient's chest pain initially decreased to a 3/10 and then with Nitropaste has completely resolved. As he is chest pain-free and has a troponin without exponential rise does not require emergent catheterization at this time. Patient did have an episode that began at rest today and prior episodes have been progressively worsened on exertion and now with a rest episode we will treat as unstable and heparinize on admission. Troponins trended echo pending. Agree with above. At bedside he is nondistressed, pain-free, heart rate is regular, and lungs are clear. DDx includes GERD/pain from his hiatal hernia, with elevated troponin in the setting of severe hypertension now improved. PG Care Time/CCT Total # of Minutes Spent Total Time Spent with Patient: Total time spent is greater than 50% in coordination of care (as documented) at patient's floor/unit and/or counseling patient: [place] [address] INT INP/OBS CARE 375MIN Patient Type New Medical Decision Making High Complexity Diagnoses NSTEMI (non-ST elevated myocardial infarction) I21.4 Dyslipidemia E78.5 GERD (gastroesophageal reflux disease) K21.9 HTN (hypertension) I10 Hx of cardiac catheterization Z98.890 Chest pain R07.9
[2023-06-21] MEDS: FAMOTIDINE 20MG IV PUSH 20 MG/5 ML SYR IV STA (16:23)
[2023-06-21] MEDS: HEPARIN SOD (PORCINE) 1000 UNIT/ML IV ONE (17:08)
[2023-06-21] MEDS: HEPARIN SODIUM/DEXTROSE 25,000 UNITS/500 ML BAG IV SCH (17:09)
[2023-06-21] MEDS ORDERED: NITROGLYCERIN 2% OINTMENT 30GM TUBE EXT PRN (18:52)
[2023-06-21] MEDS ORDERED: NITROGLYCERIN SL 0.4 MG/TAB TAB SL PRN (18:52)
[2023-06-21] MEDS ORDERED: ONDANSETRON INJ 2 MG/ML 2 ML VIAL IV PRN (18:52)
[2023-06-21] MEDS: Heparin IV Adult Wt-Based Low-Dose w/ INITIAL Bolus Protocol IV STA (19:07)
[2023-06-21 19:57] LABS: Magnesium 1.9 mg/dl (1.7-2.4)
[2023-06-21] MEDS: MAGNESIUM SULFATE / D5W 1 GM/100 ML BAG IV ONE (20:47)
[2023-06-21 23:29] LABS: ANTI-Xa, UFH(UnfractionatedHep 0.28 IU/ml (0.3-0.7)
[2023-06-22 02:05] LABS: Basophils # (auto) 0.04 K/uL (0.00-0.20); Basophils % (auto) 0.6 %; Eosinophils # (auto) 0.24 K/uL (0.00-0.50); Eosinophils % (auto) 3.7 %; Hematocrit (blood only) 44.6 % (42.0-52.0); Hemoglobin 15.1 g/dl (14.0-18.0); Immature Granulocytes # (auto) 0.03 K/uL (0.01-0.20); Immature Granulocytes % (auto) 0.5 %; Lymphocytes # (auto) 2.07 K/uL (1.20-3.40); Lymphocytes % (auto) 31.6 %; Mean Corpuscular Hemoglobin 30.9 pg (25.0-34.0); Mean Corpuscular Hgb Conc 33.9 g/dL (32.0-36.0); Mean Corpuscular Volume 91.4 fL (80.0-100.0); Mean Platelet Volume 10.4 fL (9.4-12.4); Monocytes # (auto) 0.56 K/uL (0.11-0.59); Monocytes % (auto) 8.5 %; Neutrophils # (auto) 3.61 K/uL (1.40-6.50); Neutrophils % (auto) 55.1 %; Platelet Count 219 K/uL (130-400); RDW Coefficient of Variation 13.7 % (11.5-14.5); RDW Standard Deviation 46.2 fL (36.4-46.3); Red Blood Count 4.88 M/uL (4.70-6.10); White Blood Count 6.55 K/ul (4.8-10.8)
[2023-06-22 02:21] LABS: BUN Creatinine Ratio 11.8 (10-20); Calcium 8.5 mg/dl (8.6-10.3); Chol HDL Ratio 7.1 (0-5); Creatinine Clr Calc Pharmacy 69.1 ml/min; Est GFR (African American) 81.2 ml/min; Est GFR (Non-African American) 70.1 ml/min; Magnesium 1.9 mg/dl (1.7-2.4)
[2023-06-22 05:10] LABS: ANTI-Xa, UFH(UnfractionatedHep 0.26 IU/ml (0.3-0.7)
[2023-06-22] MEDS: ASPIRIN 81 MG ECTAB PO SCH (07:52)
[2023-06-22] MEDS: hydroCHLOROthiazide 25 MG TAB PO SCH (07:52)
[2023-06-22] MEDS: FAMOTIDINE 40 MG TABLET PO SCH (07:52)
[2023-06-22] MEDS: lisinopril 10 MG TAB PO SCH (07:53)
[2023-06-22] MEDS: PANTOprazole 40 MG TAB PO SCH (07:53)
--- NOTE | 2023-06-22 08:58 | Cardiology Consultation ---
Date of Consultation June 22, 2023 Assessment & Plan (1) NSTEMI (non-ST elevated myocardial infarction): (2) Unstable angina: (3) Dyslipidemia: (4) HTN (hypertension): Plan ASSESSMENT/PLAN: 1. NSTEMI: Symptoms very concerning for crescendo angina and NSTEMI. We discussed this. He is very convinced that he is not having a heart condition but recommended cardiac catheterization. After discussion, including the review of risks and benefits, he was agreeable to proceed. He has received aspirin. Continue heparin drip. Due to recurrent rest symptoms, recommended more urgent angiography. Recommend cardiac rehab. Statin intolerant. 2. Dyslipidemia: LDL significantly elevated. Statin intolerant and confirmed that he has tried rosuvastatin, atorvastatin, and others. His does not believe he has ever tried pravastatin. If he is agreeable, recommend low-dose pravastatin. Recommend PCSK9 inhibitor as an outpatient. Goal LDL < 70. He apparently has not tolerated Zetia. 3. Hypertension: Blood pressure was normal at time of initial consultation this morning. Continue home regimen of VASU inhibitor and HCTZ. Can make further adjustments as necessary. 4. Disposition: Cardiology will continue to follow. Cardiac catheterization soon. Plan communicated with Dr. Jolly of the primary hospitalist service. Highly complex medical issues. Thank you for allowing me to participate in the care of your patient. Please call for any other questions or concerns. Sincerely, Adi Christian M.D. History of Present Illness Reason for Consultation: NSTEMI Requesting Physician: Aurora Jolly MD Attending Physician: Aurora Jolly MD History of Present Illness Mr. Quinn is a very pleasant 63-year-old gentleman with a history significant for hypertension, dyslipidemia, hiatal hernia, GERD, and statin intolerance. He was admitted on 06/21/2023 for NSTEMI. For the past 3 weeks, he has been experiencing chest discomfort described as a burning across his chest, to bilateral arms and in his teeth. It is associated with shortness of breath but no diaphoresis. 3 weeks ago when it began, it was triggered by exertion. Even short distances such as 10 yards of walking would cause chest discomfort. Symptoms would last anywhere from 30 seconds up to 2 minutes before resolving. Symptoms have progressively worsened to the point where they were occurring at rest. He even had an episode in the ER last evening, this morning just prior to seeing him and it returned very briefly when we first started conversing but then resolved. Nitroglycerin paste was on board. He was chest pain-free otherwise during our conversation. At the beginning of his symptoms he used antacid which he thought helped but then noted that there was no relief later and in fact sometimes symptoms would continue to worsen despite the use of antacids. He tried applying ice packs to his chest which seem to help. He states that he never had this type of pain before. He had a heart catheterization in approximately 2017 for a different type of chest discomfort described as a needlelike pain. He states that this pain is completely different. He also had acid reflux symptoms before and he believes that this feels different although he is convinced that his symptoms are related to his hiatal hernia/reflux. He denies melena, hematuria, syncope, near syncope, palpitations, edema, nausea, vomiting. He had bright red blood per rectum while straining approximately 2 months ago which self resolved. He had an EGD done on 06/15/2023 which demonstrated hiatal hernia and gastritis. He was seen by GI on 06/21/2023 at which point he was advised to go to the ER due to symptoms that were not improving with GI treatment. He recalls being on several statin therapies in the past including rosuvastatin, atorvastatin, and multiple others. He did not tolerate the medication due to myalgias and nausea. He does not want to try another statin. Review of systems: As above. Review of systems otherwise negative/unremarkable. Family history: No known premature CAD. Social history: No smoking. Quit snuff in June 2023. No significant alcohol use. Denies drug abuse. Lives at home with his , Claudette (nurse with [employer]). 2 sons. 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 He was unaccompanied. Allergies Allergy/AdvReac Type Severity Reaction Status Date / Time No Known Allergies Allergy Mild Unverified 06/21/23 10:51 Home Medications Medication Instructions Recorded Confirmed Type aspirin 81 mg tablet,delayed 81 mg PO DAILY #30 tabs 06/06/23 06/21/23 Rx release ([facility] Low Dose Aspirin) famotidine 40 mg tablet 40 mg PO DAILY PRN gerd #30 tabs 06/06/23 06/21/23 Rx lisinopril 10 mg tablet 10 mg PO DAILY #30 tabs 06/06/23 06/21/23 Rx pantoprazole 40 mg tablet,delayed 40 mg PO DAILY #30 tabs 06/06/23 06/21/23 Rx release hydrochlorothiazide 12.5 mg capsule 12.5 mg PO DAILY #30 caps 06/08/23 06/21/23 Rx sildenafil (pulm.hypertension) 20 20 mg PO TID PRN sexual activity 06/08/23 0 06/21/23 Rx mg tablet #90 tabs Patient History Medical History GERD (gastroesophageal reflux disease) Dyslipidemia HTN (hypertension) Surgical History (Updated 06/21/23 @ 16:26 by Sujit Downs PA-C) Hx of cardiac catheterization ~2017-chest pain, no stents - at [facility], does not follow w/ cardio Hx of sinus surgery Hx of lumpectomy from leg Family History Other No family history of adverse response to anesthesia Social History Smoking Status: Never smoker Tobacco Type: Smokeless Tobacco (Dip or Chew) Second Hand Exposure: No; Do You Dip or Chew Tobacco: Yes; Hx Alcohol Use: Yes Alcohol type: beer Hx Substance Use: No Preferred Language: Lithuanian Communication Ability: Effective Invoicing Specialist Required: No Beliefs That Will Affect Care: None Current Living Situation: Spouse Feels Safe at Home: Yes Safety Concerns: Feels Safe At This Time Assistive Devices: None Physical Exam Physical Exam: Gen.: No acute distress. Alert and oriented. HEENT: Anicteric sclera. Neck: No JVD. No bruits. Normal carotid upstrokes bilaterally. Cardiac: No ventricular heave. Regular. Normal S1-S2. No murmurs, rubs, or gallops. Pulmonary: Clear to auscultation bilaterally without wheezes, rales, or rhonchi. Abdomen: Soft, nontender, nondistended, with normoactive bowel sounds. No bruits noted. Extremities: 2+ radial pulses bilaterally. 2+ posterior tibialis pulses bilaterally. No edema or cyanosis. Chest: Nontender to palpation. Results & Data Vital Signs (Past 12 Hours) Vital Signs Temp Pulse Pulse Resp BP Pulse Ox Pulse Ox 06/22/23 07:38 69 06/22/23 07:28 36.8 C 62 12 125/89 94 06/22/23 07:28 94 06/22/23 06:07 64 15 110/74 95 06/22/23 01:00 55 L 18 104/68 93 06/21/23 23:42 58 L 06/21/23 20:48 66 16 120/85 97 O2 Del Method O2 Del Method 06/22/23 07:38 06/22/23 07:28 Room Air 06/22/23 07:28 Room Air 06/22/23 06:07 Room Air 06/22/23 01:00 Room Air 06/21/23 23:42 06/21/23 20:48 Room Air Laboratory Results Laboratory Results - last 24 hr 06/21/23 06/21/23 06/21/23 12:05 14:10 19:42 WBC 6.70 RBC 5.53 Hgb 17.1 Hct 50.7 MCV 91.7 MCH 30.9 MCHC 33.7 RDW Std Deviation 45.8 RDW Coeff of Jes 13.5 Plt Count 238 MPV 10.5 Immature Gran % (Auto) 0.3 Neut % (Auto) 70.7 Lymph % (Auto) 14.8 [place] % (Auto) 9.4 Eos % (Auto) 4.2 Baso % (Auto) 0.6 Neut # (Auto) 4.74 Lymph # (Auto) 0.99 L [place] # (Auto) 0.63 H Eos # (Auto) 0.28 Baso # (Auto) 0.04 Immature Gran # (Auto) 0.02 PT 10.9 INR 1.0 APTT 31 PTT Ratio 1.2 Activ Coag Time Kaolin Heparin Anti-Xa, Unfract Sodium 139 Potassium 4.0 Chloride 102 Carbon Dioxide 30 Anion Gap 7 BUN 15 Creatinine 1.05 Est Cr Clr Drug Dosing 72.4 Est GFR ( Amer) 85.9 Est GFR (Non-Af Amer) 74.1 BUN/Creatinine Ratio 14.3 Glucose 90 Calcium 10.0 Magnesium 1.9 Total Bilirubin 0.7 AST 16 ALT 17 Alkaline Phosphatase 98 Troponin I High Sens 314.3 H* 311.3 H* 407.8 H* D Total Protein 7.6 Albumin 4.6 Globulin 3.0 Albumin/Globulin Ratio 1.5 Triglycerides Cholesterol LDL Cholesterol, Calc VLDL Cholesterol, Calc HDL Cholesterol Cholesterol/HDL Ratio Lipase 16 06/21/23 06/22/23 06/22/23 22:53 01:49 04:53 WBC 6.55 RBC 4.88 Hgb 15.1 Hct 44.6 MCV 91.4 MCH 30.9 MCHC 33.9 RDW Std Deviation 46.2 RDW Coeff of Jes 13.7 Plt Count 219 MPV 10.4 Immature Gran % (Auto) 0.5 Neut % (Auto) 55.1 Lymph % (Auto) 31.6 [place] % (Auto) 8.5 Eos % (Auto) 3.7 Baso % (Auto) 0.6 Neut # (Auto) 3.61 Lymph # (Auto) 2.07 [place] # (Auto) 0.56 Eos # (Auto) 0.24 Baso # (Auto) 0.04 Immature Gran # (Auto) 0.03 PT INR APTT PTT Ratio Activ Coag Time Kaolin Heparin Anti-Xa, Unfract 0.28 L 0.26 L Sodium 139 Potassium 4.0 Chloride 104 Carbon Dioxide 29 Anion Gap 6 BUN 13 Creatinine 1.10 Est Cr Clr Drug Dosing 69.1 Est GFR ( Amer) 81.2 Est GFR (Non-Af Amer) 70.1 BUN/Creatinine Ratio 11.8 Glucose 98 Calcium 8.5 L Magnesium 1.9 Total Bilirubin AST ALT Alkaline Phosphatase Troponin I High Sens 405.3 H* Total Protein Albumin Globulin Albumin/Globulin Ratio Triglycerides 131 Cholesterol 206 H LDL Cholesterol, Calc 151 VLDL Cholesterol, Calc 26 HDL Cholesterol 29 Cholesterol/HDL Ratio 7.1 H Lipase 06/22/23 06/22/23 06/22/23 07:46 09:31 10:08 WBC RBC Hgb Hct MCV MCH MCHC RDW Std Deviation RDW Coeff of Jes Plt Count MPV Immature Gran % (Auto) Neut % (Auto) Lymph % (Auto) [place] % (Auto) Eos % (Auto) Baso % (Auto) Neut # (Auto) Lymph # (Auto) [place] # (Auto) Eos # (Auto) Baso # (Auto) Immature Gran # (Auto) PT INR APTT PTT Ratio Activ Coag Time Kaolin 152 H 319 H Heparin Anti-Xa, Unfract Sodium Potassium Chloride Carbon Dioxide Anion Gap BUN Creatinine Est Cr Clr Drug Dosing Est GFR ( Amer) Est GFR (Non-Af Amer) BUN/Creatinine Ratio Glucose Calcium Magnesium Total Bilirubin AST ALT Alkaline Phosphatase Troponin I High Sens 287.5 H* D Total Protein Albumin Globulin Albumin/Globulin Ratio Triglycerides Cholesterol LDL Cholesterol, Calc VLDL Cholesterol, Calc HDL Cholesterol Cholesterol/HDL Ratio Lipase Diagnostic Findings Telemetry personally reviewed: Sinus rhythm. No arrhythmia. Labs reviewed and notable for normal blood counts, elevated LDL, low HDL, normal transaminase levels, normal magnesium, normal renal function, normal potassium, elevated high-sensitivity troponin peaking at 407. ECG personally reviewed: ECG 06/21/2023 1202: Sinus bradycardia 59 bpm. ECG 06/21/2023 at 1356: Sinus rhythm with PVC 70 bpm. ECG 06/22/2023 at 8:31 AM: Sinus rhythm with PVC. Echo 06/22/2023: Normal LV size, wall motion, systolic function. EF 60 to 65%. Mild MR. RVSP 21. CTA chest 06/21/2023: No thoracic aortic dissection. No acute intrathoracic findings per radiology. CT abdomen/pelvis 06/21/2023: No bowel wall thickening or obstruction. Bladder wall thickening likely due to chronic outlet obstruction from enlarged prostate gland, per radiology. Medications Administered Current Inpatient Medications Acetaminophen (Acetaminophen 325 Mg Tab) 650 mg PO Q4H PRN PRN Reason: Pain or Fever Stop: 07/21/23 18:51 Aspirin (Aspirin 81 Mg Ectab) 81 mg PO DAILY [facility] Stop: 07/22/23 08:59 Last Admin: 06/22/23 07:52 Dose: 81 mg Famotidine (Famotidine 40 Mg Tablet) 40 mg PO QAM [facility] Stop: 07/22/23 08:59 Last Admin: 06/22/23 07:52 Dose: 40 mg Hydrochlorothiazide (Hydrochlorothiazide 25 Mg Tab) 12.5 mg PO DAILY [facility] Stop: 07/22/23 08:59 Last Admin: 06/22/23 07:52 Dose: 12.5 mg Heparin Sodium/Dextrose (Heparin Sodium/Dextrose) 25,000 units in 500 mls @ 22 mls/hr IV .[id number] [facility]; Protocol Stop: 07/21/23 16:29 Last Titration: 06/22/23 05:24 Dose: 1,100 units/hr, 22 mls/hr Lisinopril (Lisinopril 10 Mg Tab) 10 mg PO DAILY WILLIAM Stop: 07/22/23 08:59 Last Admin: 06/22/23 07:53 Dose: 10 mg Nitroglycerin (Nitroglycerin Sl 0.4 Mg/Tab Tab) 0.4 mg SL Q5M PRN PRN Reason: Chest Pain Stop: 07/21/23 18:51 Nitroglycerin (Nitroglycerin 2% Ointment 30gm Tube) 1 inch EXT Q6 PRN PRN Reason: Acute angina Stop: 07/21/23 18:51 Ondansetron HCl (Ondansetron Inj 2 Mg/Ml 2 Ml Vial) 4 mg IV Q6H PRN PRN Reason: Nausea Stop: 07/21/23 18:51 Pantoprazole Sodium (Pantoprazole 40 Mg Tab) 40 mg PO DAILY [facility] Stop: 07/22/23 08:59 Last Admin: 06/22/23 07:53 Dose: 40 mg PG Care Time/CCT Total # of Minutes Spent Total Time Spent with Patient: Total time spent is greater than 50% in coordination of care (as documented) at patient's floor/unit and/or counseling patient: Coding Level of Care Code 03793 INT INP/OBS CARE 3/75MIN Diagnoses NSTEMI (non-ST elevated myocardial infarction) I21.4 Unstable angina I20.0 Dyslipidemia E78.5 HTN (hypertension) I10
--- NOTE | 2023-06-22 09:11 | Pre Anesthesia Assessment ---
Date of Service June 22, 2023 Pre Sedation Assessment Vital Signs Temp Pulse Pulse Resp BP BP Pulse Ox 06/22/23 07:38 69 06/22/23 07:28 36.8 C 62 12 125/89 94 06/22/23 07:28 06/22/23 06:07 64 15 110/74 95 06/22/23 01:00 55 L 18 104/68 93 06/21/23 23:42 58 L 06/21/23 20:48 66 16 120/85 97 06/21/23 19:00 65 16 114/79 93 06/21/23 19:00 06/21/23 18:26 74 06/21/23 17:00 116/72 06/21/23 17:00 58 L 16 96 06/21/23 16:30 66 15 95 06/21/23 16:30 120/85 06/21/23 16:00 67 19 95 06/21/23 16:00 122/85 06/21/23 15:30 128/83 06/21/23 15:30 60 15 95 06/21/23 15:00 59 L 19 95 06/21/23 15:00 139/90 06/21/23 14:50 149/94 H 06/21/23 14:50 61 11 L 97 06/21/23 14:31 144/95 H 06/21/23 14:31 59 L 16 96 06/21/23 14:30 142/87 H 06/21/23 14:30 58 L 9 L 95 06/21/23 14:26 59 L 18 97 06/21/23 14:26 61 06/21/23 11:55 36.8 C 66 18 128/89 98 Pulse Ox O2 Del Method O2 Del Method 06/22/23 07:38 06/22/23 07:28 Room Air 06/22/23 07:28 94 Room Air 06/22/23 06:07 Room Air 06/22/23 01:00 Room Air 06/21/23 23:42 06/21/23 20:48 Room Air 06/21/23 19:00 Room Air 06/21/23 19:00 93 06/21/23 18:26 06/21/23 17:00 06/21/23 17:00 06/21/23 16:30 06/21/23 16:30 06/21/23 16:00 06/21/23 16:00 06/21/23 15:30 06/21/23 15:30 06/21/23 15:00 06/21/23 15:00 06/21/23 14:50 06/21/23 14:50 06/21/23 14:31 06/21/23 14:31 06/21/23 14:30 06/21/23 14:30 06/21/23 14:26 06/21/23 14:26 06/21/23 11:55 Room Air Cardiovascular RRR, no murmur, no edema Respiratory normal respiratory effort, lungs clear to auscultation Pre-Sedation Airway Assessment Smoking Status: Never smoker Hx Sleep Apnea: No Short, Thick Neck: No Thyromental Distance: > or= 3.5 Finger Breadths Oral Cavity: + WNL Mallampati Class: III ASA: ASA3 NPO Status Date of Last Intake of Fluids: 06/22/23 Time of Last Intake of Fluids: 07:00 Date of Last Intake of Solid Food: 06/21/23 Time of Last Intake of Solid Foods: 20:00 Procedure Planning Contraindications for Sedation: none Current Medications Reviewed: Yes Notes The planned sedation has been discussed with the patient. Informed Consent was obtained. I have identified the patient, determined the appropriateness of sedation and have assessed the patient immediately prior to the procedure. All medicine(s) and interventions are by my order.
--- NOTE | 2023-06-22 10:05 | Cardiac Catheterization ---
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 Status Clinical evaluation leading to the procedure CAD Presenation: Non STEMI Anginal Classification: CCS IV Heart Failure: No Cardiogenic Shock within 24 Hours: No Cardiac Arrest within 24 Hours: No Imaging Studies Past 6 Months: Yes Stress Studies Past 6 Months: No Coronary Anatomy Dominant: Right Diagnostic Physicians Name: True Christian MD Status: Urgent Closure Device Percutaneous Entry Location: Radial Closure Device: Radial Band (after PCI) Recommendations: PCI without planned CABG Cardiac Cath Procedure Full Procedure Date June 22, 2023 Pre-Procedure Diagnosis Pre-Procedure Diagnosis: Non STEMI AUC Score AUC Score: 9 Post-Procedure Diagnosis Post-Procedure Diagnosis: Severe CAD and Normal Intracardiac Pressures Procedure(s) Performed Procedure(s) Performed: Coronary Angiography and Left Heart Cath Geriatric Assistant True Christian MD Client Support Coordinator(s) Showers Estimated Blood Loss Estimated Blood Loss: < 20 ml Medication(s) Medication(s): Fentanyl, Heparin, Lidocaine 1%, Nicardipine and Versed Summary of Findings Procedures: 1. Coronary angiography 2. Left heart catheterization 3. Moderate sedation Indication: Mr. Quinn is a very pleasant 63-year-old gentleman with history significant for hypertension and dyslipidemia who presented with NSTEMI. He had recurrent chest pain at rest while in the ER with Nitropaste, heparin drip, antiplatelet therapy. Decision was made to take him to the cardiac catheterization lab more urgently. Coronary angiography: 1. Left main: Large-caliber and long vessel. Luminal irregularities. 2. Left anterior descending: Luminal irregularities in the mid LAD. Large branching diagonal vessel proximal 50% and otherwise luminal irregularities. 3. Circumflex: Large-caliber vessel. Mid circumflex 30-40%, involving bifurcation of OM1. Otherwise, luminal irregularities. Large OM1 proximal 30%. Large OM 2 without significant CAD. 4. Right coronary artery: Dominant vessel. Very large caliber. Early mid RCA 90% followed by focal mid ~ 98% stenosis. Otherwise, luminal irregularities. TOPHER II flow. PDA and PL branches without significant CAD. There were left to right collaterals noted with angiography of the left system. 5. Ramus intermedius: No significant CAD. Left heart catheterization: 1. Left ventriculography was not performed. 2. Normal LVEDP. LVEDP 12 mmHg. 3. No aortic stenosis. Peak to peak gradient across aortic valve is 0. Moderate sedation: 1. Sedation start time: 9:27 AM 2. Sedation end time: 9:35 AM Impression: 1. Severe mid RCA CAD with TOPHER II flow and [id number] collaterals. 2. Otherwise, nonobstructive CAD. 3. Normal left-sided filling pressure. 4. No aortic stenosis. Plan: 1. Dr. Kilgore of interventional cardiology was asked to review images and c onsider PCI of the RCA. He plans on RCA PCI. 2. Risk factor modification including lipid management. 3. Cardiac rehab. Hemodynamics Rest Ao:: 116/62 Final Ao: 133/75 LV: 114/0/12 Recommendations Recommendations: PCI without planned CABG Specimens Specimens: None Radiation Exposure (mGy) 767 mGy. Fluoro time 2.6 min. Contrast (mls) 105 ml Procedural Complication(s) None Disposition remains in [facility] for interventional cardiology/PCI I attest to the content of the Intraoperative Record and any orders documented therein. Any exceptions are noted below. [facility] Card Cath Procedure Codes Cardiac Catheterization Procedure 1: Cardiovascular Cath Procedures: 44642 Coronaries and LHC (+/-LV) Moderate Sedation Procedure 1: Sedation/Anesthesia: 29520 Mod Sedation by the same physician;Init15 Min Child Age 5 & Up PG Care Time/CCT Total # of Minutes Spent Total Time Spent with Patient: Total time spent is greater than 50% in coordination of care (as documented) at patient's floor/unit and/or counseling patient:
--- NOTE | 2023-06-22 10:19 | XCELERA ---
[id number]
[2023-06-22] MEDS: EPTIFIBATIDE 0.75 MG/ML 75MG VIAL (CATH LAB USE ONLY) IV ONE (10:26)
[2023-06-22] MEDS: EPTIFIBATIDE 2 MG/ML 10 ML VIAL (CATH LAB USE ONLY) IV ONE ×2 (10:26)
[2023-06-22] MEDS: MIDAZOLAM HCL 1 MG/ML 2ML VIAL ONE ×3 (10:28→10:33)
[2023-06-22] MEDS: HEPARIN (PORCINE) 1000 UNIT/ML 10 ML (CATH LAB USE ONLY) ONE (10:28)
[2023-06-22] MEDS: fentaNYL citrate PF 100 MCG/2 ML VIAL ONE ×2 (10:29→10:33)
[2023-06-22] MEDS: niCARdipine HCL INJ 2.5 MG/ML 10 ML AMP ONE (10:31)
[2023-06-22] MEDS: NITROGLYCERIN/D5W 100MCG/ML 20ML SYR ONE (10:31)
[2023-06-22] MEDS: OPTIRAY 350 ONE (10:36)
[2023-06-22] MEDS: TICAGRELOR 90 MG TAB ONE (10:40)
--- NOTE | 2023-06-22 11:10 | Post Anesthesia Assessment ---
Date of Service June 22, 2023 Post Sedation Assessment Vital Signs Temp Pulse Pulse Resp BP BP Pulse Ox 06/22/23 07:38 69 06/22/23 07:28 98.2 F 62 12 125/89 94 06/22/23 07:28 06/22/23 06:07 64 15 110/74 95 06/22/23 01:00 55 L 18 104/68 93 06/21/23 23:42 58 L 06/21/23 20:48 66 16 120/85 97 06/21/23 19:00 65 16 114/79 93 06/21/23 19:00 06/21/23 18:26 74 06/21/23 17:00 116/72 06/21/23 17:00 58 L 16 96 06/21/23 16:30 66 15 95 06/21/23 16:30 120/85 06/21/23 16:00 67 19 95 06/21/23 16:00 122/85 06/21/23 15:30 128/83 06/21/23 15:30 60 15 95 06/21/23 15:00 59 L 19 95 06/21/23 15:00 139/90 06/21/23 14:50 149/94 H 06/21/23 14:50 61 11 L 97 06/21/23 14:31 144/95 H 06/21/23 14:31 59 L 16 96 06/21/23 14:30 142/87 H 06/21/23 14:30 58 L 9 L 95 06/21/23 14:26 59 L 18 97 06/21/23 14:26 61 06/21/23 11:55 98.2 F 66 18 128/89 98 Pulse Ox O2 Del Method O2 Del Method 06/22/23 07:38 06/22/23 07:28 Room Air 06/22/23 07:28 94 Room Air 06/22/23 06:07 Room Air 06/22/23 01:00 Room Air 06/21/23 23:42 06/21/23 20:48 Room Air 06/21/23 19:00 Room Air 06/21/23 19:00 93 06/21/23 18:26 06/21/23 17:00 06/21/23 17:00 06/21/23 16:30 06/21/23 16:30 06/21/23 16:00 06/21/23 16:00 06/21/23 15:30 06/21/23 15:30 06/21/23 15:00 06/21/23 15:00 06/21/23 14:50 06/21/23 14:50 06/21/23 14:31 06/21/23 14:31 06/21/23 14:30 06/21/23 14:30 06/21/23 14:26 06/21/23 14:26 06/21/23 11:55 Room Air Recovery Score Activity: Moves 4 extremities Respiration: Deep Breath/Cough Circulation: +/-20% PreAnes Value Consciousness: Fully Awake Oxygen Saturation: O2 needed for >90% Discharge Sedation Level of Care: Fast Track Phase II Post Sedation Plan On clinical assessment, the patient appears to have tolerated the sedation without complications. Patient is recovering as anticipated. Patient will continue to be monitored by nursing and may be discharged when sedation discharge criteria are met per below protocol. Upon Completions of procedure up to 15 minutes continue every 5 minute vital signs and the P.A.R. score; then discharge to a Phase I or Fast Track to Phase II per the following guidelines: * Discharge Patient to appropriate Phase II area if PAR is 8 or greater or ret urn to pre- procedure baseline. The post - procedure orders will be as directed. * If PAR score is less than 8 or not return to pre-procedure baseline then patient will follow Phase I monitoring till PAR is reached for Phase II. The Phase I may be done in procedure room or may call to secure a Phase I area. * If naloxone or flumazenil are used for reversal, hold in Phase I for continued monitoring from when last reversal dose was given for a minimum of 60 minutes or longer pending the nurse and/or physician discretion of patient condition before discharge to Phase II. Please call the Sedation Physician to re-evaluate and complete post-note for discharge to Phase II area. Do NOT discharge from procedure sedation or Phase 1 until post- sedation evaluation note is complete by procedure /sedation MD Sedation Discharge Instructions to be given to the patient at discharge to home.
[2023-06-22] MEDS ORDERED: EPTIFIBATIDE BOLUS/DRIP IV STA (11:14)
[2023-06-22] MEDS ORDERED: EPTIFIBATIDE 75 MG/100 ML VIAL IV SCH (11:15)
--- NOTE | 2023-06-22 11:31 | Cardiac Catheterization ---
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 Cardiac Status Clinical evaluation leading to the procedure CAD Presenation: Non STEMI Anginal Classification: CCS IV Diagnostic Physicians Name: Max Kilgore MD Closure Device Recommendations: PCI without planned CABG Cardiac Cath Procedure Full Procedure Date June 22, 2023 Pre-Procedure Diagnosis Pre-Procedure Diagnosis: Non STEMI AUC Score AUC Score: 9 Post-Procedure Diagnosis Post-Procedure Diagnosis: Severe CAD and Successful PCI Procedure(s) Performed Procedure(s) Performed: Coronary Angiography and Drug Eluting Stent Bed Laborer aMx Kilgore MD Tank Car Inspector(s) Showers Estimated Blood Loss Estimated Blood Loss: 25 Medication(s) Medication(s): Fentanyl, Heparin, Integrilin, Nicardipine, Nitroglycerin and Versed Medication(s): Ticagrelor Summary of Findings Indication: NSTEMI Access: 6 Fr right radial artery Catheters: AR-1 guide Findings: For full details of patient's coronary angiography please see cath report dictated by Dr. Christian. Briefly, patient found to have acute 98% mid RCA stenosis with heavy thrombus burden. Decision to proceed with PCI. -- PCI -- Antithrombotic therapy: Heparin, Integrilin, ticagrelor Procedure: RCA cannulated with AR-1 guide Pre-procedure flow TOPHER 2-3 Mask Inspector 50 wire passed across lesion into distal vessel With the aid of a telescope support catheter mid RCA lesion predilated with 2.5 compliant balloon Dilated lesion stented with 4.5 x 18 mm [place] drug-eluting stent Post stent implantation noted to have proximal age thrombus with TOPHER I/II flow and new chest pain/ST elevations. Started on IC/IV Integrilin, IA vasodilators administered Earlymid RCA stented with 4.5 x 15 mm Jack KAIDEN overlapping proximal aspect of initial stent Stent post-dilated with stent balloon Noted to have thrombus in distal posterior AV branch which later seemed to move down medium posterior lateral branch. Wire placed across distal PLB and occlusive thrombus dottered with 2.0 balloon Additional IC vasodilators administered for spasm Post procedure TOPHER 3 flow, stents well expanded with minimal residual stenosis and no apparent edge complications. Residual thrombus noted in distal right PLB2. Chest pain largely resolved and ST segments improved. Arterial Closure: TR band Summary: 1. Successful PCI of mid RCA with 2 overlapping drug-eluting stents (4.5 x 15, 4.5 x 18 mm Jack). Recommendations: To PCU for continued monitoring Continue Integrilin infusion for 6 hours Loaded with ticagrelor 180 mg in Software Installer Continue dual-antiplatelet therapy for at least 1 year Continue ASCVD risk factor modification. Consider Zetia and PCSK9 inhibitor. Consult cardiac Rehab Hemodynamics Rest Ao:: 133/75/100 Final Ao: 126/80/102 LV: - Recommendations Recommendations: PCI without planned CABG Radiation Exposure (mGy) 4049 Contrast (mls) 195 Anesthesia Moderate 4415-9844 Procedural Complication(s) None Disposition PCU I attest to the content of the Intraoperative Record and any orders documented therein. Any exceptions are noted below. [facility] Card Cath Procedure Codes Moderate Sedation Procedure 1: Sedation/Anesthesia: 75366 Mod Sedation by the same physician; Ea [id number] Minutes Stenting Procedure 1: Cardiovascular Stent Procedures: 80394 Perc transcatheter placement of intracoronary stent(s), with ang PG Care Time/CCT Total # of Minutes Spent Total Time Spent with Patient: Total time spent is greater than 50% in coordination of care (as documented) at patient's floor/unit and/or counseling patient:
[2023-06-22] MEDS: ACETAMINOPHEN 325 MG TAB PO PRN (11:44)
[2023-06-22 12:12] LABS: ANTI-Xa, UFH(UnfractionatedHep 1.39 IU/ml (0.3-0.7)
[2023-06-22] MEDS: FUROSEMIDE 40 MG/4 ML VIAL IV ONE (14:53)
[2023-06-22] MEDS: FUROSEMIDE INJ 20 MG/2 ML VIAL IV ONE (14:54)
[2023-06-22] MEDS: SODIUM CHLORIDE 0.9% 1,000 ML IV SCH (15:38)
--- NOTE | 2023-06-22 16:02 | Hospitalist Progress Note ---
Date of Service June 22, 2023 Assessment & Plan (1) NSTEMI (non-ST elevated myocardial infarction): Plan: P/w 3 weeks of exertional chest and epigastric pain initially thought to be GI- related, with an acute worsening on 06/20 Elevated troponin at 314/311/407/405/287, ECG no acute ischemic changes Chest CTA revealed no acute aortic dissection or pulmonary emboli Echocardiogram with normal EF, no WMAs, and mild MR ASA 324 mg and Nitro-Bid paste given in ED with relief of pain. Was started on heparin gtt. Seen by Cardiology and had cardiac catheterization which showed acute 98% mid RCA stenosis with heavy thrombus burden. Had successful PCI of mid RCA with 2 overlapping drug-eluting stents. 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, resolved with interventions by Cardiology Had some SOB post cath and was given IV lasix with improvement Started on Integrilin infusion for 6 hours, Loaded with ticagrelor 180 mg in Project Controls Scheduler Continue dual-antiplatelet therapy for at least 1 year with ASA, Brilinta HgbA1C normal, Lipids elevated-has been statin intolerant in past but has not tried pravastatin-start pravastatin 20mg qhs, can add CoQ10 if has myalgias Consider PCSK9 inhibitor if cannot tolerate pravastatin Added metoprolol 12.5mg po bid, continue lisinopril at 5mg daily (home dose 10mg) Consult cardiac Rehab Monitor on tele overnight for arrhythmia Follow CBC, BMP, Mag in AM (2) CAD (coronary artery disease), iroquois coronary artery: Plan: severe, as above continue ASA, Brilinta, added metoprolol, statin, continue home lisinopril (3) Dyslipidemia: Plan: Patient is not currently on a statin He has trialed statins in the past (such as Crestor and Zetia), but has struggled with statin intolerance/myalgias/joint pain fasting lipid panel shows LDL 157, elevated starting pravastatin as previously noted (4) HTN (hypertension): Plan: Continue lisinopril at lower dose of 5mg daily Added metoprolol Dc home HCTZ (5) GERD (gastroesophageal reflux disease): Plan: Continue pantoprazole, Famotidine recently had EGD which showed gastritis (6) Thoracic aortic aneurysm: Plan: mild dilatation at [address] abd/pel control BPs, follow as outpt (7) Enlarged prostate: Plan: noted on CT abd/pel with evidence of thickened bladder wall/TAVARES Follow clinically and monitor for LUTS, f/u with PCP (8) Cholelithiasis: Plan: asymptomatic, noted on CT abd/pel no intervention at this time Plan Disposition: continued stay PCU telemetry, but possible dc to home tomorrow if stable VTE PPx: Heparin IV low-dose bolus now stopped Discussed care with at bedside 06/21 Admission and Anticipated Discharge Date Admission Date: June 21, 2023 Subjective Seen after return from cath and reports ongoing mild 2/10 chest pain burning sensation but improved overall, denies SOB. He is still very surprised that the pains he was having all along were cardiac and not GI related. I discussed his care with Cardiology Physical Exam Constitutional: WD/WN, vitals as above Respiratory: normal respiratory effort, lungs clear to auscultation Cardiovascular: RRR, no murmur, no edema right wrist with dressing in place over radial cath site, no hematoma Gastrointestinal (Abdomen): normal bowel sounds, soft, nontender, no hepatosplenomegaly Psychiatric: A+Ox3, euthymic affect Results & Data Results & Data Vital Signs (Past 12 Hours) Vital Signs Temp Pulse Pulse Resp BP BP Pulse Ox 06/22/23 15:15 36.8 C 78 20 153/93 H 96 06/22/23 14:45 70 16 175/73 H 96 06/22/23 14:30 71 16 162/100 H 98 06/22/23 14:15 62 16 152/92 H 98 06/22/23 14:00 70 16 156/95 H 98 06/22/23 13:45 62 16 162/98 H 98 06/22/23 13:15 74 16 164/108 H 98 06/22/23 13:00 61 16 144/102 H 98 06/22/23 12:45 61 16 168/94 H 98 06/22/23 12:30 60 16 156/94 H 98 06/22/23 12:15 59 L 16 170/99 H 98 06/22/23 12:00 68 16 171/100 H 98 06/22/23 11:45 66 16 164/98 H 98 06/22/23 11:30 66 16 167/96 H 98 06/22/23 11:15 70 16 163/93 H 98 06/22/23 11:00 72 16 157/97 H 98 06/22/23 10:45 74 16 134/93 98 06/22/23 07:38 69 06/22/23 07:28 36.8 C 62 12 125/89 94 06/22/23 07:28 06/22/23 06:07 64 15 110/74 95 Pulse Ox O2 Del Method O2 Del Method 06/22/23 15:15 Room Air 06/22/23 14:45 Room Air 06/22/23 14:30 Room Air 06/22/23 14:15 Room Air 06/22/23 14:00 Room Air 06/22/23 13:45 Room Air 06/22/23 13:15 Room Air 06/22/23 13:00 Room Air 06/22/23 12:45 Room Air 06/22/23 12:30 Room Air 06/22/23 12:15 Room Air 06/22/23 12:00 Room Air 06/22/23 11:45 Room Air 06/22/23 11:30 Room Air 06/22/23 11:15 Room Air 06/22/23 11:00 Room Air 06/22/23 10:45 Room Air 06/22/23 07:38 06/22/23 07:28 Room Air 06/22/23 07:28 94 Room Air 06/22/23 06:07 Room Air Laboratory Results CBC, CMP, troponins, lipid panel, HgbA1C reviewed PG Care Time/CCT Total # of Minutes Spent Total Time Spent with Patient: Total time spent is greater than 50% in coordination of care (as documented) at patient's floor/unit and/or counseling patient: Coding Level of Care Code 76480 SUB INP/OBS CARE 3/50MIN Diagnoses NSTEMI (non-ST elevated myocardial infarction) I21.4 CAD (coronary artery disease), iroquois coronary artery I25.10 Dyslipidemia E78.5 HTN (hypertension) I10 GERD (gastroesophageal reflux disease) K21.9 Thoracic aortic aneurysm I71.20 Enlarged prostate N40.0 Cholelithiasis K80.20
[2023-06-22 16:09] LABS: Estimated Average Glucose 114 mg/dl; Hemoglobin A1C 5.6 % (4.5-5.6)
--- NOTE | 2023-06-22 16:25 | Communication Note ---
Date of Service: June 22, 2023 Notified by nursing staff in the Peer Specialist holding area that he has had residual chest discomfort since PCI. Also he was more short of breath although oxygen saturation was normal. Requested ECG, which did not demonstrate any dynamic ST changes. On exam, his lungs were clear however he had hepatojugular reflux, which was not present this morning on initial consultation. Ordered Lasix 20 mg IV x 1. He is now in PCU. Presented to the bedside to see how he is doing. He admits that he has had significant urine output and feels much better. His chest pain is down to a 1 or 2 out of 10 (previously was 3 or 4). His shortness of breath has resolved. Communicated with Dr. Jolly and Dr. Kilgore.
[2023-06-22] MEDS: PRAVASTATIN SOD 20 MG TAB PO SCH (16:52)
[2023-06-22] MEDS: METOPROLOL TARTRATE 25 MG TAB PO SCH (20:11)
--- NOTE | 2023-06-23 05:56 | Electrocardiogram Report ---
Test Reason : Blood Pressure : / mmHG Vent. Rate : 059 BPM Atrial Rate : 059 BPM P-R Int : 158 ms QRS Dur : 086 ms QT Int : 404 ms P-R-T Axes : 012 -25 069 degrees QTc Int : 399 ms Sinus bradycardia Minimal voltage criteria for LVH, may be normal variant ( R in aVL ) Borderline ECG When compared with ECG of 13-DEC-2017 11:54, No significant change was found Confirmed by True Christian ([id number]) on 06/23/2023 5:56:17 AM Referred By: Confirmed By:True Christian
[2023-06-23 06:27] LABS: Basophils # (auto) 0.03 K/uL (0.00-0.20); Basophils % (auto) 0.3 %; Eosinophils # (auto) 0.28 K/uL (0.00-0.50); Eosinophils % (auto) 2.6 %; Hematocrit (blood only) 47.9 % (42.0-52.0); Immature Granulocytes # (auto) 0.04 K/uL (0.01-0.20); Immature Granulocytes % (auto) 0.4 %; Mean Corpuscular Hemoglobin 31.4 pg (25.0-34.0); Mean Corpuscular Hgb Conc 35.5 g/dL (32.0-36.0); Mean Corpuscular Volume 88.4 fL (80.0-100.0); Mean Platelet Volume 10.7 fL (9.4-12.4); Monocytes # (auto) 0.77 K/uL (0.11-0.59); Monocytes % (auto) 7.2 %; Neutrophils # (auto) 8.13 K/uL (1.40-6.50); Neutrophils % (auto) 75.5 %; Platelet Count 232 K/uL (130-400); RDW Coefficient of Variation 13.3 % (11.5-14.5); RDW Standard Deviation 43.3 fL (36.4-46.3); Red Blood Count 5.42 M/uL (4.70-6.10); White Blood Count 10.75 K/ul (4.8-10.8)
[2023-06-23 06:41] LABS: BUN Creatinine Ratio 15.8 (10-20); Calcium 9.2 mg/dl (8.6-10.3); Creatinine Clr Calc Pharmacy 75.3 ml/min; Est GFR (Non-African American) 77.7 ml/min; Magnesium 1.7 mg/dl (1.7-2.4); Potassium 3.4 mmol/L (3.5-5.1)
[2023-06-23] MEDS: lisinopril 5 MG TAB PO SCH (08:34)
[2023-06-23] MEDS: POTASSIUM CHLORIDE CRTAB 20 MEQ TABCR PO STA (08:36)
[2023-06-23] MEDS: MAGNESIUM SULFATE / D5W 1 GM/100 ML BAG IV ONE (08:37)
[2023-06-23] MEDS: TICAGRELOR 90 MG TAB PO SCH (09:46)
[2023-06-23] MEDS: METOPROLOL TARTRATE 25 MG TAB PO ONE (11:30)
--- NOTE | 2023-06-23 13:07 | Discharge Summary ---
Discharge Summary Date of Service June 23, 2023 Notes For Next Care Provider Medication Changes From Visit Added Brilinta 90mg po bid Added metoprolol 25mg po bid Decreased lisinopril to 5mg po daily Added pravastatin 20mg po daily Admission HPI Per Admitting Provider Boris is a 63-year-old male with PMH of HTN, dyslipidemia, hiatal hernia, and GERD. Patient presents for chest pain and epigastric pain x 3 weeks, with an acute worsening today. Pain is located substernally, but he notes it is also generalized across the chest and radiates up to his neck and jaw bilaterally. No radiation between the joint shoulder blades. The pain comes on admittedly and last 30 seconds to 2 minutes at a time. He describes it as a burning sensation that he rates as 10/10 at its worst. Sitting down and placing ice on his chest alleviates the pain. Patient reports that the pain usually comes on whenever he bends over, kneels down, exerts himself walking, or after eating. Nitro does alleviate the pain. He has been taking Tylenol at home for the pain, but nothing else. Of note, he stopped taking his aspirin 5 days ago as he thought it might be stomach/GERD related and that the aspirin might be worsening the pain. No prior ND. Hx of cardiac catheterization 5 years ago; he was exhibiting "needlelike" pain at this time around his heart; however, he reports that his current pain feels very different than what it was back then; it is a hot burning pain now, whereas before it was "needlelike". Patient had an EGD on 06/12, and reports that it did reveal gastritis. He has not been eating much recently, and his reports that he last lost 7 pounds over the past week. Patient does have chest pain at rest, which was present when he arrived in the ED; he rated it 3/10 after initial treatments and described it as a "light burning" pain. Upon reassessment, patient is chest pain-free at time of admission. Patient took all of his regular morning medications except for aspirin. Recent change medications include changing from lansoprazole to Protonix. He denies smoking, tobacco use, recreational drug use, or recent alcohol use. He does chew snuff tobacco, but quit last week as he noticed that chewing snuff exacerbated his chest pain. Prior to this, he has been chewing tobacco for 52 years. He has not been on heparin in the past, but denies history of GI bleeds, bleeding disorders, or drug allergies to his knowledge. Patient's vitals are stable at time of admission. ED course: Aspirin 324 mg Nitroglycerin 2% paste Zofran 4 mg IV NSS 500 mL IV ROS: Patient endorses LOPEZ, intermittent chest pain both at rest and with exertion, epigastric pain, nausea, diarrhea x 2 weeks (on antacid; resolved), and 1 episode of BRB in stool 2mo ago (resolved; patient believes he may have been secondary to something he ate). Patient denies fever, chills, night-sweats, SOB, chest palpitations, cough, vomiting, burning with urination, blood in urine, or numbness/tingling in arms or legs. Principal Dx & Hospital Course #1 = Principal Diagnosis (1) NSTEMI (non-ST elevated myocardial infarction): P/w 3 weeks of exertional chest and epigastric pain initially thought to be GI- related, with an acute worsening on 06/20 Elevated troponin at 314/311/407/405/287, ECG no acute ischemic changes Chest CTA revealed no acute aortic dissection or pulmonary emboli Echocardiogram with normal EF, no WMAs, and mild MR ASA 324 mg and Nitro-Bid paste given in ED with relief of pain. Was started on heparin gtt. Seen by Cardiology and had cardiac catheterization which showed acute 98% mid RCA stenosis with heavy thrombus burden. Had successful PCI of mid RCA with 2 overlapping drug-eluting stents. 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, resolved with interventions by Cardiology Had some SOB post cath and was given IV lasix with improvement Started on Integrilin infusion for 6 hours, Loaded with ticagrelor 180 mg in Funds Transfer Clerk Continue dual-antiplatelet therapy for at least 1 year with ASA, Brilinta HgbA1C normal, Lipids elevated-has been statin intolerant in past but has not tried pravastatin-started pravastatin 20mg qhs, can add CoQ10 if has myalgias Consider PCSK9 inhibitor if cannot tolerate pravastatin Added metoprolol 25mg po bid, decreased lisinopril to 5mg daily to allow room in BP for addition of metoprolol (home dose 10mg) Consult cardiac Rehab No arrhythmia on tele F/u with Cardiology as outpt (2) CAD (coronary artery disease), hoh coronary artery: severe, as above continue ASA, Brilinta, added metoprolol, statin, continue home lisinopril (3) Dyslipidemia: Patient is not currently on a statin He has trialed statins in the past (such as Crestor and Zetia), but has struggled with statin intolerance/myalgias/joint pain fasting lipid panel shows LDL 157, elevated starting pravastatin, follow lipids as outpt (4) HTN (hypertension): Continue lisinopril at lower dose of 5mg daily Added metoprolol continue home HCTZ (5) GERD (gastroesophageal reflux disease): Continue pantoprazole, Famotidine recently had EGD which showed gastritis (6) Thoracic aortic aneurysm: mild dilatation at [address] abd/pel control BPs, follow as outpt (7) Enlarged prostate: noted on CT abd/pel with evidence of thickened bladder wall/TAVARES Follow clinically and monitor for LUTS, f/u with PCP (8) Cholelithiasis: asymptomatic, noted on CT abd/pel no intervention at this time Headache-mild, CT head negative, can take Tylenol Plan Disposition: dc to home today VTE PPx: Heparin IV initially, then ASA/Brilinta Discussed care with at bedside 06/21 and 06/22 Discussed care with Cardiology on 06/22 Discharge Exam Constitutional WD/WN, vitals as above Respiratory normal respiratory effort, lungs clear to auscultation Cardiovascular RRR, no murmur, no edema Gastrointestinal (Abdomen) normal bowel sounds, soft, nontender, no hepatosplenomegaly Psychiatric A+Ox3, euthymic affect Updated Medication List Medication Instructions Recorded Confirmed Type aspirin 81 mg tablet,delayed 81 mg PO DAILY #30 tabs 06/06/23 06/21/23 Rx release ([facility] Low Dose Aspirin) famotidine 40 mg tablet 40 mg PO DAILY PRN gerd #30 tabs 06/06/23 06/21/23 Rx pantoprazole 40 mg tablet,delayed 40 mg PO DAILY #30 tabs 06/06/23 06/21/23 Rx release hydrochlorothiazide 12.5 mg capsule 12.5 mg PO DAILY #30 caps 06/08/23 06/21/23 Rx sildenafil (pulm.hypertension) 20 20 mg PO TID PRN sexual activity 06/08/23 06/21/23 Rx mg tablet #90 tabs lisinopril 5 mg tablet (Zestril) 5 mg PO DAILY #30 tabs 06/23/23 Rx metoprolol tartrate 25 mg tablet 25 mg PO BID #60 tabs 06/23/23 Rx pravastatin 20 mg tablet 20 mg PO DAILY@1700 #30 tabs 06/23/23 Rx ticagrelor 90 mg tablet (Brilinta) 90 mg PO BID #60 tabs 06/23/23 Rx Hospital Stay Data Consultations 06/21/23 15:11 ED Decision to Admit Stat 06/21/23 18:52 Consult Cardiology Routine Procedures Performed Operation Date: 06/22/23 09:30 Actual Procedures p Cath, Left with Cors and Vent(Right) - True Christian MD p Drug Eluting Stent SGl Vessel - Max Kilgore MD s Cineradiography w/Routine Exam - Max Kilgore MD Diagnostic Imagining Performed 06/21/23 12:16 CT Abd and Pelvis [CT abd pelvis IV con only] Stat 06/21/23 14:03 CT angio chest dissec wo/w con Stat 06/22/23 09:10 CL Cath Imgs for PACS use only Routine ECHO Pending Results Patient Have Any Pending Studies at Discharge: No Discharge Instructions Given to Patient (Per Discharging Provider) You were admitted with chest pain and found to have a heart attack and had a severe blockage in one of your coronary arteries. You had stents placed to restore the blood flow and your chest pain resolved. You were started on several new medications to keep your heart healthy and to prevent future heart attacks. It is very important that you take these medications as prescribed. ACTIVITY RECOMMENDATIONS: Excess manipulation of the wrist should be avoided for the next 24-48 hours. * No lifting over 2 pounds (approximately a 1/2 gallon of milk) with the utilized arm for 24 hours. * No strenuous activity such as bowling or tennis for 3 days. * Keep the site of the procedure covered with a bandage for 24 hours. *You may shower the day after the procedure. Do not take a tub bath or submerge the puncture site in water for the next 3 days. *Do not operate any motorized equipment for 3 days. SPECIAL CARE INSTRUCTIONS: The site may be slightly bruised and sore following your procedure. Should any of the following occur, contact the Dr. who performed your procedure. 1. Redness/inflammation, swelling, chills, or fever, or colored drainage at procedure site within 3-7 days after your procedure. 2. Coldness, discoloration, ongoing numbness, severe pain, or swelling. Expect mild tingling of hand and tenderness at the puncture site for up to three days. If this persists beyond three days, or other symptoms develop, notify the Dr. who performed your procedure. BLEEDING: If the procedure site on your wrist begins to bleed, do not panic 1. Place 1 or 2 fingers firmly just slightly above the insertion site to stop the bleeding. You may be able to feel your pulse as you hold pressure. 2. Lift your finger after 5 minutes to see if the bleeding has stopped. 3. Once the bleeding has stopped, gently wipe the wrist area clean with a bandage. * If the bleeding from your wrist does not stop after 10 minutes, or if there is a large amount of bleeding or spurting, call 911 (do not drive yourself to the hospital). SKIN IRRITATION: * You may experience some redness and/or swelling in the area where radiation was administered. If any skin irritation occurs, please contact your family physician. FOLLOW UP VISIT: Keep any scheduled doctor appointments. Home Care: * Take your medications exactly as directed. Don't skip doses. * Remember that recovery after a heart attack takes time. Plan to rest for at lease 4-8 weeks while you recover. Then return to normal activity when your doctor says it's okay. * Ask your doctor about joining a heart rehabilitation program. * Tell your doctor if you are feeling depressed. Feelings of sadness are common after a heart attack, but it is important that you speak to someone if you are feeling overwhelmed by these feelings. * If you are having chest pain, call 911 for an ambulance. Do NOT drive yourself to the hospital. * Ask your family members to learn CPR. * Learn to take your own blood pressure and pulse. Keep a record of your results. Ask your doctor when you should seek emergency medical attention. He or she will tell you which blood pressure reading is dangerous. Lifestyle Changes: * Maintain a healthy weight. Get help to lose any extra pounds. * Cut back on salt. * Limit canned, dried, packaged, and fast foods. * Don't add salt to your food. * Season foods with herbs instead of salt when you cook. * Break the smoking habit. Enroll in a stop-smoking program to improve your chances of success. * Limit fatty foods. * Ask your doctor about having your lipid levels checked regularly. * Build up your activity according to your doctor's recommendation. * Ask your doctor when it's okay to resume sexual activity. * Tell your doctor about any erectile dysfunction (ED) medication you are taking. Some ED medications are not safe if you take certain heart medications. * Try to manage stress. Follow Up: It is important for you to keep your follow up appointments with your medical provider. Total Time Total Time Spent Total Time Spent (In Minutes): 45 min Total Time Includes: Examination of the Patient, Discharge Planning, Medication Reconciliation and Communication With Other Providers (Cardiology) Coding Level of Care Code 45340 INP/OBS DISCH >30 MIN Diagnoses NSTEMI (non-ST elevated myocardial infarction) I21.4 CAD (coronary artery disease), hoh coronary artery I25.10 Dyslipidemia E78.5 HTN (hypertension) I10 GERD (gastroesophageal reflux disease) K21.9 Thoracic aortic aneurysm I71.20 Enlarged prostate N40.0 Cholelithiasis K80.20
--- NOTE | 2023-06-23 14:23 | Cardiology Progress Note ---
Date of Service June 23, 2023 Assessment & Plan (1) NSTEMI (non-ST elevated myocardial infarction): (2) CAD (coronary artery disease), [place] coronary artery: (3) S/P coronary artery stent placement: (4) Unstable angina: (5) Dyslipidemia: (6) HTN (hypertension): Plan ASSESSMENT/PLAN: 1. NSTEMI/CAD s/p RCA PCI x 2: No further angina. Able to ambulate in the hallway without chest pain or shortness of breath. Had some mild hypervolemia following PCI which resolved with single dose of Lasix and breathing back to baseline. Discussed the importance of aspirin 81 mg daily indefinitely. Discussed the importance of taking Brilinta for at least 1 year. He seems to be tolerating Brilinta. Statin therapy if tolerated. PCSK9 inhibitor as an outpatient. Cardiac rehab. 2. Dyslipidemia: LDL significantly elevated. Statin intolerant and confirmed that he has tried rosuvastatin, atorvastatin, and others. His does not believe he has ever tried pravastatin. Low-dose pravastatin has been initiated. If tolerated, continue and potentially titrate. Recommend PCSK9 inhibitor as an outpatient. Goal LDL < 70. He apparently has not tolerated Zetia. 3. Hypertension: Blood pressure improved today. Beta-do has been initiated by hospitalist service. This may also help with his sinus tachycardia with exertion that has been noted on telemetry. Continue home regimen of VASU inhibitor and HCTZ. 4. Headache: Etiology unclear but was present prior to cardiac catheterization and initial consultation. This is his main concern currently. Head CT ordered. Otherwise, defer to primary hospitalist service. Can use Tylenol. 5. Disposition: He seems to be doing much better from a cardiac standpoint. If no other issues and CT of the head is unremarkable, could be discharged later today from a cardiac perspective. Have requested that the cardiology office set up an appointment with me in the next 1 to 2 weeks. Patient care communicated with Dr. Jolly, primary hospitalist. Admission and Anticipated Discharge Date Admission Date: June 21, 2023 Subjective He has not had any further chest pain since last evening. Shortness of breath has resolved. Denies orthopnea and was able to lay flat. Ambulated in the hallways without chest pain or shortness of breath. He denies palpitations, syncope, near syncope, edema, or bleeding such as melena, hematochezia, or hematuria. Was notified by nursing staff this morning that he was refusing Brilinta. After Brilinta last night, he felt very anxious. After discussion with nursing staff, he was agreeable to take Brilinta this morning and did not have any recurrent issues in that regard. His biggest concern now is headache. He states that he believes Brilinta is ca using headache. He was reminded that he had a headache before cardiology consultation in the ER yesterday. He states that he has had a headache intermittently. His was present at the bedside. Despite the headache, there is no neurologic deficits that they can recognize. She states that his thinking/mentation is at baseline. Physical Exam Physical Exam: Gen.: No acute distress. Alert and oriented. HEENT: Anicteric sclera. Neck: No JVD. No hepatojugular reflux. Cardiac: No ventricular heave. Regular. Normal S1-S2. No murmurs, rubs, or gallops. Pulmonary: Clear to auscultation bilaterally without wheezes, rales, or rhonchi. Abdomen: Soft, nontender, nondistended, with normoactive bowel sounds. No bruits noted. Extremities: 2+ radial pulses bilaterally. Right radial cath site is clean, dry, and intact without erythema or discharge. 2+ posterior tibialis pulses bilaterally. No edema or cyanosis. Results & Data Vital Signs (Past 12 Hours) Vital Signs Temp Pulse Resp BP Pulse Ox O2 Del Method 06/23/23 11:36 36.6 C 94 H 18 127/92 97 Room Air 06/23/23 07:12 36.6 C 92 H 18 115/82 96 Room Air 06/23/23 03:46 36.6 C 88 18 118/79 95 Room Air Intake & Output 06/21/23 06/22/23 06/23/23 06/24/23 06:59 06:59 06:59 06:59 Intake Total 831.4 / 831.4 1175.166 / 1175.166 100 / 100 Output Total Balance 831.4 / 831.4 1174.166 / 1174.166 100 / 100 Weight 182 lb 5.156 oz 179 lb 0.246 oz Laboratory Results Laboratory Results - last 24 hr 06/22/23 06/23/23 01:49 05:25 WBC 10.75 RBC 5.42 Hgb 17.0 Hct 47.9 MCV 88.4 MCH 31.4 MCHC 35.5 RDW Std Deviation 43.3 RDW Coeff of Jes 13.3 Plt Count 232 MPV 10.7 Immature Gran % (Auto) 0.4 Neut % (Auto) 75.5 Lymph % (Auto) 14.0 Thomas % (Auto) 7.2 Eos % (Auto) 2.6 Baso % (Auto) 0.3 Neut # (Auto) 8.13 H Lymph # (Auto) 1.50 Thomas # (Auto) 0.77 H Eos # (Auto) 0.28 Baso # (Auto) 0.03 Immature Gran # (Auto) 0.04 Sodium 139 Potassium 3.4 L Chloride 102 Carbon Dioxide 26 Anion Gap 11 BUN 16 Creatinine 1.01 Est Cr Clr Drug Dosing 75.3 Est GFR ( Amer) 90.0 Est GFR (Non-Af Amer) 77.7 BUN/Creatinine Ratio 15.8 Glucose 108 H Estimat Average Glucose 114 Hemoglobin A1c 5.6 Calcium 9.2 Magnesium 1.7 Diagnostic Findings Labs reviewed and notable for very mild hypokalemia, stable renal function, normal blood counts. Telemetry personally reviewed: No arrhythmia. Has episodes of sinus tachycardia that seem to correlate with activity. Medications Administered Current Inpatient Medications Acetaminophen (Acetaminophen 325 Mg Tab) 650 mg PO Q4H PRN PRN Reason: Pain or Fever Stop: 07/21/23 18:51 Last Admin: 06/22/23 16:52 Dose: 650 mg Aspirin (Aspirin 81 Mg Ectab) 81 mg PO DAILY [facility] Stop: 07/22/23 08:59 Last Admin: 06/23/23 08:36 Dose: 81 mg Famotidine (Famotidine 40 Mg Tablet) 40 mg PO QAM [facility] Stop: 07/22/23 08:59 Last Admin: 06/23/23 08:36 Dose: 40 mg Lisinopril (Lisinopril 5 Mg Tab) 5 mg PO DAILY [facility] Stop: 07/23/23 08:59 Last Admin: 06/23/23 08:34 Dose: 5 mg Metoprolol Tartrate (Metoprolol Tartrate 25 Mg Tab) 25 mg PO BID [facility] Stop: 07/23/23 20:59 Nitroglycerin (Nitroglycerin Sl 0.4 Mg/Tab Tab) 0.4 mg SL Q5M PRN PRN Reason: Chest Pain Stop: 07/21/23 18:51 Nitroglycerin (Nitroglycerin 2% Ointment 30gm Tube) 1 inch EXT Q6 PRN PRN Reason: Acute angina Stop: 07/21/23 18:51 Ondansetron HCl (Ondansetron Inj 2 Mg/Ml 2 Ml Vial) 4 mg IV Q6H PRN PRN Reason: Nausea Stop: 07/21/23 18:51 Pantoprazole Sodium (Pantoprazole 40 Mg Tab) 40 mg PO DAILY [facility] Stop: 07/22/23 08:59 Last Admin: 06/23/23 08:36 Dose: 40 mg Pravastatin Sodium (Pravastatin Sod 20 Mg Tab) 20 mg PO DAILY@1700 [facility] Stop: 07/22/23 16:59 Last Admin: 06/22/23 16:52 Dose: 20 mg Ticagrelor (Ticagrelor 90 Mg Tab) 90 mg PO BID [facility] Stop: 07/23/23 08:59 Last Admin: 06/23/23 09:46 Dose: 90 mg PG Care Time/CCT Total # of Minutes Spent Total Time Spent with Patient: Total time spent is greater than 50% in coordination of care (as documented) at patient's floor/unit and/or counseling patient: Coding Level of Care Code 70949 SUB INP/OBS CARE 3/50MIN Diagnoses NSTEMI (non-ST elevated myocardial infarction) I21.4 CAD (coronary artery disease), [place] coronary artery I25.10 S/P coronary artery stent placement Z95.5 Unstable angina I20.0 Dyslipidemia E78.5 HTN (hypertension) I10
--- NOTE | 2023-06-23 15:16 | CT Scan Report ---
HEAD CT NONCONTRAST CT DOSE: 580.53 mGy.cm HISTORY: headache TECHNIQUE: Multiaxial CT images of the head were performed without the use of intravenous contrast. A utomated exposure control was utilized for this study. A dose lowering technique was utilized adheri ng to the principles of ALARA. Comparison: None. Findings: The paranasal sinuses and mastoid air cells are clear. The calvarium and skull base are int act. The ventricles and sulci are within normal limits. There is no mass, hematoma, midline shift, or acute infarct. Impression: No acute intracranial abnormality. ACT 112: Negative or not required by law. Electronically signed by: Sujit Caputo M.D. 06/23/2023 3:15 PM
[2023-06-23] MEDS ORDERED: METOPROLOL TARTRATE 25 MG TAB PO SCH (21:00)
--- NOTE | 2023-06-23 23:21 | Electrocardiogram Report ---
Test Reason : Blood Pressure : / mmHG Vent. Rate : 070 BPM Atrial Rate : 070 BPM P-R Int : 146 ms QRS Dur : 092 ms QT Int : 410 ms P-R-T Axes : 039 002 087 degrees QTc Int : 442 ms Sinus rhythm with occasional Premature ventricular complexes Nonspecific T wave abnormality Abnormal ECG When compared with ECG of 21-JUN-2023 12:02, Premature ventricular complexes are now Present T wave inversion more evident in Lateral leads Confirmed by True Christian ([id number]) on 06/23/2023 11:21:21 PM Referred By: REFERRED SELF Confirmed By:True Christian
--- NOTE | 2023-06-23 23:22 | Electrocardiogram Report ---
Test Reason : Blood Pressure : / mmHG Vent. Rate : 068 BPM Atrial Rate : 068 BPM P-R Int : 156 ms QRS Dur : 090 ms QT Int : 420 ms P-R-T Axes : 028 -22 025 degrees QTc Int : 446 ms Sinus rhythm with occasional Premature ventricular complexes Otherwise normal ECG When compared with ECG of 21-JUN-2023 13:56, No significant change Confirmed by True Christian ([id number]) on 06/23/2023 11:22:00 PM Referred By: REFERRED SELF Confirmed By:True Christian
--- NOTE | 2023-06-23 23:23 | Electrocardiogram Report ---
Test Reason : Blood Pressure : / mmHG Vent. Rate : 076 BPM Atrial Rate : 076 BPM P-R Int : 142 ms QRS Dur : 088 ms QT Int : 394 ms P-R-T Axes : 039 -28 139 degrees QTc Int : 443 ms Normal sinus rhythm T wave abnormality, consider lateral ischemia Abnormal ECG When compared with ECG of 22-JUN-2023 10:57, T wave inversion now evident in Lateral leads Confirmed by True Christian ([id number]) on 06/23/2023 11:22:44 PM Referred By: REFERRED SELF Confirmed By:True Christian
--- NOTE | 2023-06-23 23:23 | Electrocardiogram Report ---
Test Reason : Blood Pressure : / mmHG Vent. Rate : 079 BPM Atrial Rate : 079 BPM P-R Int : 158 ms QRS Dur : 092 ms QT Int : 406 ms P-R-T Axes : 030 -20 071 degrees QTc Int : 465 ms Normal sinus rhythm Nonspecific ST abnormality Abnormal ECG When compared with ECG of 22-JUN-2023 08:31, Premature ventricular complexes are no longer Present Non-specific change in ST segment in Inferior leads Nonspecific T wave abnormality, improved in Lateral leads Confirmed by True Christian ([id number]) on 06/23/2023 11:22:31 PM Referred By: REFERRED SELF Confirmed By:True Christian
== END 2023-06-23 16:08 | disposition home or self-care (01) | DRG 322 ==
LOC: ED 11:50 → EDINP 16:09 → SUATTDRO 16:09 → EDINP 06-22 08:52 → 2S 06-22 15:16